=== PATIENT | male | born 1955 | race Asian ===

== ENCOUNTER 2023-03-01 07:19 | Inpatient (IN) | payer SELFPAY ==
[~2023-03-01] VITALS: Ht 162.6 cm; Wt 78.0 kg
[2023-03-01] VITALS (8 sets, daily range): BP systolic 101–123; BP diastolic 68–74; PULSE 82–110; RESP 22–40; O2SAT 92–99
[2023-03-01] MEDS: Insulin Reg/NS 100units/100mL 100 ML IV SCH (00:40)
[2023-03-01] MEDS ORDERED: albuterol 2.5 MG/3 ML nebule CONTNEB PRN (07:30)
[2023-03-01] MEDS ORDERED: ipratropium 0.5 MG/2.5ML nebule IH ONE ×2 (07:30→11:05)
[2023-03-01] MEDS ORDERED: azithromycin/NS 500mg/250ml 250 ML IV ONE (07:30)
[2023-03-01] MEDS ORDERED: normal saline 1000ML IV soln IVB ONE ×2 (07:30→15:45)
[2023-03-01] MEDS ORDERED: CefTRIAXone 2gm/D5W 50ml BAG 50 ML IV ONE (07:30)
[2023-03-01] MEDS ORDERED: methylPREDNISolone sod succ 125mg/2ml vial IV ONE (07:30)
[2023-03-01 07:56] LABS: BASOPHILS % (AUTO) 0.5 % (0-1); EOSINOPHILS # (AUTO) 0.1 X10'3 (0-0.9); EOSINOPHILS % (AUTO) 0.7 % (0-6); HEMATOCRIT 37.6 % (42.0-52.0); HEMOGLOBIN 12.7 g/dl (14.0-17.9); LYMPHOCYTES # (AUTO) 1.1 X10'3 (1.1-4.8); LYMPHOCYTES % (AUTO) 12.1 % (21-51); MEAN CORPUSCULAR HEMOGLOBIN 28.4 PG (27.0-31.0); MEAN CORPUSCULAR HGB CONC 33.7 g/dL (33.0-36.5); MEAN CORPUSCULAR VOLUME 84.5 FL (78-98); MEAN PLATELET VOLUME 7.9 FL (7.4-10.4); MONOCYTES # (AUTO) 0.7 X10'3 (0-0.9); MONOCYTES % (AUTO) 7.8 % (2-12); NEUTROPHILS % (AUTO) 78.9 % (42-75); PLATELET COUNT 246 X10'3 (140-440); RED BLOOD COUNT 4.45 X10'6 (4.70-6.10); RED CELL DISTRIBUTION WIDTH 14.5 % (11.5-14.5); WHITE BLOOD COUNT 8.9 X10'3 (4.5-11.0)
[2023-03-01 08:14] LABS: ABG BASE EXCESS -3.6 mmol/L (-2.0-2.0); ABG HCO3 18.4 mmol/L (22.0-26.0); ABG OXYGEN SATURATION 89.7 % (94-97); ABG PCO2 (T) 24.6 mmHg (35.0-48.0); ABG PH (T) 7.488 (7.340-7.440); ABG PO2 (T) 56.9 mmHg (75.0-100.0); ALLEN'S TEST POSITIVE; FCOHb 0.9 % (0.0-3.9); FHHb 10.2 % (0.0-5.0); FLOW 4 L/min; FMetHb 0.3 % (0.0-1.5); FO2Hb 88.6 % (94-97); MODE NASAL CANNULA; PATIENT TEMPERATURE 36.4; TOTAL HEMOGLOBIN 12.9 G/dl (14.0-17.9)
[2023-03-01 08:18] LABS: ALANINE AMINOTRANSFERASE 25 U/L (12-78); ALBUMIN 2.3 G/DL (3.4-5.0); ALBUMIN/GLOBULIN RATIO 0.4 (1.1-1.5); ALKALINE PHOSPHATASE 62 IU/L (46-116); ANION GAP 10 (8-16); ASPARTATE AMINO TRANSFERASE 54 U/L (10-37); BILIRUBIN,TOTAL 0.9 MG/DL (0.1-1.0); BLOOD UREA NITROGEN 25 MG/DL (7-18); BUN/CREATININE RATIO 23.4 (10.0-20.0); CALCIUM 8.7 MG/DL (8.5-10.1); CHLORIDE 100 MMOL/L (99-107); CREATININE 1.07 MG/DL (0.60-1.10); POTASSIUM 3.8 MMOL/L (3.5-5.1); SODIUM 133 MMOL/L (135-145); TOTAL CARBON DIOXIDE 22.8 MMOL/L (24-32); TOTAL PROTEIN 8.7 G/DL (6.4-8.2); eCRCL 63 ML/MIN; eGFR 69 ML/MIN
[2023-03-01 08:27] LABS: GLUCOSE 136 MG/DL (70-104); PRO BRAIN NATRIURETIC PEPTIDE 9439 PG/ML (0-125)
[2023-03-01 08:40] LABS: D-DIMER 0.86 MG/L FEU (0-0.50)
[2023-03-01] MEDS ORDERED: albuterol 2.5 MG/3 ML nebule NEB ONE (08:40)
[2023-03-01] MEDS ORDERED: aspirin 325mg tablet, delayed-release (Ecotrin) PO ONE (08:50)
[2023-03-01] MEDS ORDERED: nitroGLYCERIN 1gm ointment UD TP ONE (08:50)
[2023-03-01] MEDS ORDERED: heparin 10,000 units/1 ML INJ IV ONE ×2 (08:55→12:55)
[2023-03-01] MEDS ORDERED: heparin 10,000 units/1 ML INJ IV PRN ×2 (08:55→12:55)
[2023-03-01] MEDS ORDERED: heparin 25,000 UNIT/250ml bag 250 ML IV PRN ×2 (08:55→12:55)
[2023-03-01 10:05] LABS: INR 1.1 INR; PROTHROMBIN TIME 11.7 SECONDS (9.0-12.0)
[2023-03-01] MEDS ORDERED: albuterol 2.5 MG/3 ML nebule CONTNEB ONE (11:05)
[2023-03-01] MEDS ORDERED: NORepinephrine 8mg/ 250ml NS 250 ML IV PRN (11:10)
[2023-03-01] MEDS ORDERED: succinylcholine 20mg/ml inj IV ONE (12:13)
[2023-03-01] MEDS ORDERED: fentaNYL/PF 50MCG/1 ML 2ML syringe ONE (12:21)
[2023-03-01] MEDS ORDERED: fentaNYL/PF 50MCG/1 ML 2ML syringe IV ONE ×2 (12:25→12:50)
[2023-03-01] MEDS ORDERED: etomidate 2mg/ml inj. IV ONE (12:25)
[2023-03-01] MEDS ORDERED: FENTANYL-0.9 % NACL/PF 100 ML IV PRN ×2 (12:30→12:55)
[2023-03-01] MEDS ORDERED: NO HOME MEDS (12:41)
[2023-03-01 12:50] LABS: BILIRUBIN,URINE NEGATIVE (Neg); CLARITY,URINE SLIGHTLY CLOUDY (Clear); COLOR,URINE YELLOW (Yellow); GLUCOSE, URINE NEGATIVE (Neg); KETONES,URINE TRACE mg/dl (Neg); LEUKOCYTE ESTERASE ,URINE NEGATIVE (Neg); NITRITES, URINE NEGATIVE (Neg); OCCULT BLOOD,URINE NEGATIVE (Neg); PROTEIN,URINE 100 mg/dl (Neg); UROBILINOGEN,URINE >=8.0 E.U/dL (0.2-1.0)
[2023-03-01] MEDS ORDERED: furosemide 40mg/4ml inj IV ONE (12:50)
[2023-03-01 12:52] LABS: UA COLLECTION TYPE FOLEY CATH
[2023-03-01] MEDS ORDERED: LIDOcaine 2% 10ml TOPICAL JELLY (Urojet) TP ONE (12:55)
[2023-03-01] MEDS ORDERED: potassium Cl 20 mEq SR tablet PO PRN ×2 (12:55)
[2023-03-01] MEDS ORDERED: magnesium 4gm in 100ml NS 100 ML IV PRN (12:55)
[2023-03-01] MEDS ORDERED: potassium Cl 40MEQ/1/2NS 520ml 520 ML IV PRN (12:55)
[2023-03-01] MEDS ORDERED: magnesium hydroxide 30ml (MOM) UD suspension PO PRN (12:55)
[2023-03-01] MEDS ORDERED: ondansetron/PF 4mg/2ml inj IV PRN (12:55)
[2023-03-01] MEDS ORDERED: magnesium 2GM in 50ml NS 50 ML IV PRN (12:55)
[2023-03-01] MEDS ORDERED: LidoCAINE 2% Topical Jelly 11mL syringe TOP ONE (12:55)
[2023-03-01] MEDS ORDERED: acetaminophen 325mg tablet PO PRN (12:55)
[2023-03-01] MEDS ORDERED: magnesium Cl slow-release 64mg tablet PO PRN (12:55)
[2023-03-01] MEDS ORDERED: mag hydrox/Alum hydrox/simeth 30ml oral suspension PO PRN (12:55)
[2023-03-01] MEDS ORDERED: sodium bicarbonate (8.4%) 1 mEq/ml syringe ONE (13:00)
[2023-03-01] MEDS ORDERED: mannitol 12.5gm/50mL VIAL IV ONE (13:00)
[2023-03-01] MEDS ORDERED: methylPREDNISolone sod succ 1000mg vial ONE (13:00)
[2023-03-01] MEDS ORDERED: NORepinephrine bitart. inj. IV ONE (13:00)
[2023-03-01] MEDS ORDERED: aminocaproic acid 250 MG/1 ML inj. ONE (13:00)
[2023-03-01] MEDS ORDERED: albumin (human) 25% 100 ML IV solution IV ONE (13:00)
[2023-03-01] MEDS ORDERED: heparin 10,000 units/1 ML INJ ONE (13:00)
[2023-03-01 13:01] LABS: MUCUS STRANDS MODERATE /LPF (Neg)
[2023-03-01] MEDS ORDERED: potassium Cl 20 mEq SR tablet NG STA (13:03)
[2023-03-01] MEDS ORDERED: DOBUTamine-DoBUTrex 500mg/D5W 250 ML IV SCH (13:05)
[2023-03-01] MEDS ORDERED: magnesium 2GM in 50ml NS 50 ML IV ONE (13:05)
[2023-03-01 13:09] LABS: RENAL CELLS, URINE MANY /HPF
[2023-03-01 13:10] LABS: WBC,URINE 0-4 /HPF (0-4)
[2023-03-01 13:11] LABS: BACTERIA,URINE FEW /HPF (Neg)
[2023-03-01] MEDS: DOBUTamine-DoBUTrex 500mg/D5W 250 ML IV SCH (13:19)
[2023-03-01 13:21] LABS: SQUAMOUS EPITHELIAL CELL,UR FEW /LPF (FEW)
[2023-03-01 13:23] LABS: HYALINE CASTS 0-3 /LPF (NEGATIVE)
[2023-03-01 13:31] LABS: AMORPHOUS URATES 1+
[2023-03-01 13:33] LABS: TRANSITIONAL EPI CELLS,URINE FEW /HPF
[2023-03-01 13:34] LABS: COARSE GRANULAR CAST 0-3 /LPF (NEGATIVE)
[2023-03-01 13:54] LABS: BASOPHILS % (AUTO) 0.4 % (0-1); EOSINOPHILS % (AUTO) 0.1 % (0-6); HEMATOCRIT 34.5 % (42.0-52.0); HEMOGLOBIN 11.7 g/dl (14.0-17.9); LYMPHOCYTES # (AUTO) 0.7 X10'3 (1.1-4.8); LYMPHOCYTES % (AUTO) 9.5 % (21-51); MEAN CORPUSCULAR HEMOGLOBIN 28.6 PG (27.0-31.0); MEAN CORPUSCULAR HGB CONC 33.8 g/dL (33.0-36.5); MEAN CORPUSCULAR VOLUME 84.8 FL (78-98); MEAN PLATELET VOLUME 7.5 FL (7.4-10.4); MONOCYTES # (AUTO) 0.2 X10'3 (0-0.9); MONOCYTES % (AUTO) 2.3 % (2-12); NEUTROPHILS # (AUTO) 6.7 X10'3 (1.8-7.7); NEUTROPHILS % (AUTO) 87.7 % (42-75); PLATELET COUNT 261 X10'3 (140-440); RED BLOOD COUNT 4.07 X10'6 (4.70-6.10); RED CELL DISTRIBUTION WIDTH 14.7 % (11.5-14.5); WHITE BLOOD COUNT 7.6 X10'3 (4.5-11.0)
[2023-03-01] MEDS ORDERED: furosemide 20 MG/2 ML vial IV SCH (14:00)
[2023-03-01 14:01] LABS: ABG BASE EXCESS -8.7 mmol/L (-2.0-2.0); ABG HCO3 17.4 mmol/L (22.0-26.0); ABG OXYGEN SATURATION 94.7 % (94-97); ABG PCO2 (T) 38.6 mmHg (35.0-48.0); ABG PH (T) 7.273 (7.340-7.440); ABG PO2 (T) 91.6 mmHg (75.0-100.0); ALLEN'S TEST POSITIVE; FCOHb 0.2 % (0.0-3.9); FHHb 5.3 % (0.0-5.0); FMetHb 0.4 % (0.0-1.5); FO2Hb 94.1 % (94-97); MODE VENT - AC; PEEP 5 cm H2O; RESPIRATORY RATE 20 b/min; TIDAL VOLUME 450 mL; TOTAL HEMOGLOBIN 12.9 G/dl (14.0-17.9)
[2023-03-01] MEDS ORDERED: LIDOcaine 1% (10mg/ml) 2ml vial ONE (14:40)
[2023-03-01] MEDS ORDERED: iohexol 350 MG/ML 50ML vial IV ONE (14:41)
[2023-03-01] MEDS ORDERED: iohexol 350MG/ML 100ml bottle IV ONE ×2 (14:41)
[2023-03-01] MEDS ORDERED: midazolam 1 mg/ML 2ml injection ONE ×3 (14:41→17:53)
[2023-03-01] MEDS ORDERED: heparin 1,000unit/ml 10ml vial 10 ML ONE (14:42)
[2023-03-01] MEDS ORDERED: verapamil 2.5 mg/ml inj IV ONE (14:42)
[2023-03-01] MEDS ORDERED: nitroGLYCERIN 500mcg/5mL D5W 5 ML IV ONE (14:42)
[2023-03-01 15:32] LABS: PROTHROMBIN TIME 10.9 SECONDS (9.0-12.0)
[2023-03-01] MEDS ORDERED: LIDOcaine 1% 30ml preserv. free vial ONE (16:27)
[2023-03-01] MEDS ORDERED: heparin 1,000 UNITS/NS 500ml 500 ML ONE (16:41)
[2023-03-01] MEDS ORDERED: epiNEPHrine 1 mg/ml inj ONE (17:20)
[2023-03-01] MEDS ORDERED: ceFAZolin 1000mg inj ONE (17:20)
[2023-03-01] MEDS ORDERED: BUPIVAcaine 0.5% inj/PF 30 ML ONE (17:21)
[2023-03-01] MEDS ORDERED: BUPIVAcaine 2.5mg/ml inj 50ml vial (contains preservative) ONE (17:21)
[2023-03-01] MEDS ORDERED: clindamycin 600mg/D5W 50ml 50 ML IV ONE (17:35)
[2023-03-01] MEDS ORDERED: MESSAGE TO PHARMACY IJ ONE (17:35)
[2023-03-01] MEDS ORDERED: MESSAGE TO NURSING PO ONE ×5 (17:35→17:54)
[2023-03-01] MEDS ORDERED: MIDAZolam 1 MG/ML 5ML VIAL ONE (18:00)
[2023-03-01] MEDS ORDERED: SUfentanil 50mcg/ml 1ml amp IV ONE (18:00)
[2023-03-01] MEDS ORDERED: rocuronium 10mg/ml inj IV ONE (18:08)
[2023-03-01] MEDS ORDERED: sevoflurane 250ml liquid IH ONE (18:08)
[2023-03-01] MEDS ORDERED: NORepinephrine 8 MG in NS 250 ML BAG (32 mcg/ml) IV ONE (18:08)
[2023-03-01] MEDS ORDERED: DOBUTamine/D5W 500mg/250ml premix IV ONE (18:08)
[2023-03-01] MEDS ORDERED: protamine sulf. 10mg/ml inj. IV ONE (18:08)
[2023-03-01 18:13] LABS: ABG HCO3 17.1 mmol/L (22.0-26.0); ABG OXYGEN SATURATION 99.1 % (94-97); ABG PCO2 37.7 mmHg (35.0-48.0); ABG PH 7.275 (7.340-7.440); ABG PO2 363.5 mmHg (75.0-100.0); CL (ABG) 107 mmol/L (99-107); FCOHb 0.3 % (0.0-3.9); FHHb 0.9 % (0.0-5.0); FMetHb 0.3 % (0.0-1.5); FO2Hb 98.5 % (94-97); GLUCOSE (ABG) 223 mg/dl (70-104); IONIZED CA (ABG) 1.09 mmol/L (1.10-1.30); TOTAL HEMOGLOBIN 12.6 G/dl (14.0-17.9)
[2023-03-01] MEDS ORDERED: papaverine 30 mg/ml 2ml inj. ICAR ONE (18:30)
[2023-03-01] MEDS ORDERED: BUPIVACAINE liposomal/PF 13.3 MG/ML vial IM ONE ×2 (18:30→19:16)
[2023-03-01] MEDS ORDERED: epiNEPHrine 1 mg/ml inj SQ ONE (18:30)
[2023-03-01] MEDS ORDERED: BUPIVAcaine 0.25% w/Epi /PF 30ml vial IJ ONE (18:30)
[2023-03-01 18:49] LABS: ABG BASE EXCESS -2.3 mmol/L (-2.0-2.0); ABG HCO3 23.3 mmol/L (22.0-26.0); ABG PH 7.351 (7.340-7.440); ABG PO2 250.1 mmHg (75.0-100.0); CL (ABG) 106 mmol/L (99-107); FCOHb 0.3 % (0.0-3.9); FMetHb 0.3 % (0.0-1.5); FO2Hb 98.4 % (94-97); GLUCOSE (ABG) 214 mg/dl (70-104); IONIZED CA (ABG) 1.01 mmol/L (1.10-1.30); K (ABG) 3.6 mmol/L (3.5-5.1); TOTAL HEMOGLOBIN 11.7 G/dl (14.0-17.9)
[2023-03-01] MEDS ORDERED: sodium bicarbonate (8.4%) inj. 1 MEQ/ML ML ONE ×3 (18:57→18:58)
[2023-03-01] MEDS ORDERED: clindamycin-Cleocin 900mg/D5W 50 ML IV ONE (19:00)
[2023-03-01 19:04] LABS: HEMOGLOBIN A1C 6.7 % (4.5-6.2)
[2023-03-01 19:58] LABS: ABG BASE EXCESS -4.9 mmol/L (-2.0-2.0); ABG HCO3 20.8 mmol/L (22.0-26.0); ABG PCO2 40.9 mmHg (35.0-48.0); ABG PH 7.324 (7.340-7.440); ABG PO2 65.5 mmHg (75.0-100.0); CL (ABG) 106 mmol/L (99-107); FCOHb 0.3 % (0.0-3.9); FHHb 10.9 % (0.0-5.0); FMetHb 0.3 % (0.0-1.5); FO2Hb 88.5 % (94-97); GLUCOSE (ABG) 220 mg/dl (70-104); K (ABG) 3.6 mmol/L (3.5-5.1); TOTAL HEMOGLOBIN 11.7 G/dl (14.0-17.9)
[2023-03-01] MEDS ORDERED: docusate sod 100mg capsule PO SCH (20:00)
[2023-03-01] MEDS ORDERED: mupirocin 2% nasal ointment 1gm UD NS SCH (20:00)
[2023-03-01] MEDS ORDERED: K and/or MAG REPLACEMENT MC SCH (20:00)
[2023-03-01 20:23] LABS: ABG BASE EXCESS VENOUS -1.3 mmol/L (-2.0 - 2.0); ABG OXYGEN SATURATION VENOUS 82.3 % (75 - 99 %); ABG PCO2 VENOUS 36.5 mmHg (41.0-54.0); ABG PH (VENOUS) 7.417 (7.310-7.450); ABG PO2 VENOUS 46.8 mmHg (25.0-35.0); CL (ABG) 103 mmol/L (99-107); FCOHb VENOUS 0.3 %; FHHb VENOUS 17.6 %; FMetHb VENOUS 0.3 % (0.0 - 0.5); FO2Hb VENOUS 81.8 %; GLUCOSE (ABG) 180 mg/dl (70-104); IONIZED CA (ABG) 0.86 mmol/L (1.10-1.30); K (ABG) 3.6 mmol/L (3.5-5.1)
[2023-03-01 20:34] LABS: ABG BASE EXCESS 0.2 mmol/L (-2.0-2.0); ABG HCO3 24.5 mmol/L (22.0-26.0); ABG OXYGEN SATURATION 99.2 % (94-97); ABG PCO2 37.8 mmHg (35.0-48.0); ABG PH 7.429 (7.340-7.440); CL (ABG) 105 mmol/L (99-107); FCOHb 0.3 % (0.0-3.9); FHHb 0.8 % (0.0-5.0); FMetHb 0.3 % (0.0-1.5); FO2Hb 98.6 % (94-97); GLUCOSE (ABG) 191 mg/dl (70-104); IONIZED CA (ABG) 0.88 mmol/L (1.10-1.30); TOTAL HEMOGLOBIN 8.3 G/dl (14.0-17.9)
[2023-03-01 21:03] LABS: ABG BASE EXCESS 0.1 mmol/L (-2.0-2.0); ABG OXYGEN SATURATION 99.1 % (94-97); ABG PH 7.393 (7.340-7.440); ABG PO2 383.2 mmHg (75.0-100.0); CL (ABG) 107 mmol/L (99-107); FCOHb 0.3 % (0.0-3.9); FHHb 0.9 % (0.0-5.0); FMetHb 0.3 % (0.0-1.5); FO2Hb 98.5 % (94-97); GLUCOSE (ABG) 195 mg/dl (70-104); IONIZED CA (ABG) 0.91 mmol/L (1.10-1.30); TOTAL HEMOGLOBIN 8.7 G/dl (14.0-17.9)
[2023-03-01 21:33] LABS: ABG BASE EXCESS -2.2 mmol/L (-2.0-2.0); ABG HCO3 22.7 mmol/L (22.0-26.0); ABG OXYGEN SATURATION 99.1 % (94-97); ABG PCO2 39.4 mmHg (35.0-48.0); ABG PH 7.378 (7.340-7.440); ABG PO2 368.1 mmHg (75.0-100.0); CL (ABG) 106 mmol/L (99-107); FCOHb 0.3 % (0.0-3.9); FHHb 0.9 % (0.0-5.0); FMetHb 0.3 % (0.0-1.5); FO2Hb 98.5 % (94-97); GLUCOSE (ABG) 180 mg/dl (70-104); IONIZED CA (ABG) 0.95 mmol/L (1.10-1.30); TOTAL HEMOGLOBIN 8.9 G/dl (14.0-17.9)
[2023-03-01 22:03] LABS: ABG BASE EXCESS -1.4 mmol/L (-2.0-2.0); ABG HCO3 23.7 mmol/L (22.0-26.0); ABG OXYGEN SATURATION 99.1 % (94-97); ABG PCO2 41.4 mmHg (35.0-48.0); ABG PH 7.375 (7.340-7.440); ABG PO2 390.1 mmHg (75.0-100.0); CL (ABG) 107 mmol/L (99-107); FCOHb 0.2 % (0.0-3.9); FHHb 0.9 % (0.0-5.0); FMetHb 0.3 % (0.0-1.5); FO2Hb 98.6 % (94-97); GLUCOSE (ABG) 179 mg/dl (70-104); IONIZED CA (ABG) 0.95 mmol/L (1.10-1.30); K (ABG) 3.8 mmol/L (3.5-5.1); TOTAL HEMOGLOBIN 9.2 G/dl (14.0-17.9)
[2023-03-01 22:32] LABS: ABG BASE EXCESS -2.8 mmol/L (-2.0-2.0); ABG HCO3 22.2 mmol/L (22.0-26.0); ABG PCO2 39.2 mmHg (35.0-48.0); ABG PO2 348.5 mmHg (75.0-100.0); CL (ABG) 108 mmol/L (99-107); FCOHb 0.3 % (0.0-3.9); FMetHb 0.3 % (0.0-1.5); FO2Hb 98.4 % (94-97); GLUCOSE (ABG) 167 mg/dl (70-104); IONIZED CA (ABG) 0.98 mmol/L (1.10-1.30); K (ABG) 3.8 mmol/L (3.5-5.1); TOTAL HEMOGLOBIN 9.4 G/dl (14.0-17.9)
[2023-03-01 22:51] LABS: ABG BASE EXCESS 2.6 mmol/L (-2.0-2.0); ABG HCO3 27.9 mmol/L (22.0-26.0); ABG PCO2 47.2 mmHg (35.0-48.0); CL (ABG) 107 mmol/L (99-107); FCOHb 0.3 % (0.0-3.9); FMetHb 0.3 % (0.0-1.5); FO2Hb 98.4 % (94-97); GLUCOSE (ABG) 161 mg/dl (70-104); IONIZED CA (ABG) 1.44 mmol/L (1.10-1.30); K (ABG) 3.7 mmol/L (3.5-5.1); TOTAL HEMOGLOBIN 8.8 G/dl (14.0-17.9)
[2023-03-01 23:22] LABS: ABG BASE EXCESS 1.8 mmol/L (-2.0-2.0); ABG HCO3 27.1 mmol/L (22.0-26.0); ABG OXYGEN SATURATION 99.1 % (94-97); ABG PCO2 45.9 mmHg (35.0-48.0); ABG PH 7.389 (7.340-7.440); ABG PO2 373.4 mmHg (75.0-100.0); CL (ABG) 108 mmol/L (99-107); FCOHb 0.3 % (0.0-3.9); FHHb 0.9 % (0.0-5.0); FMetHb 0.3 % (0.0-1.5); FO2Hb 98.5 % (94-97); GLUCOSE (ABG) 150 mg/dl (70-104); IONIZED CA (ABG) 1.14 mmol/L (1.10-1.30); K (ABG) 3.9 mmol/L (3.5-5.1)
[2023-03-01 23:37] LABS: ABG BASE EXCESS -0.9 mmol/L (-2.0-2.0); ABG HCO3 24.5 mmol/L (22.0-26.0); ABG OXYGEN SATURATION 88.8 % (94-97); ABG PCO2 43.7 mmHg (35.0-48.0); ABG PH 7.366 (7.340-7.440); ABG PO2 62.8 mmHg (75.0-100.0); CL (ABG) 108 mmol/L (99-107); FCOHb 0.3 % (0.0-3.9); FHHb 11.1 % (0.0-5.0); FMetHb 0.3 % (0.0-1.5); FO2Hb 88.3 % (94-97); GLUCOSE (ABG) 138 mg/dl (70-104); IONIZED CA (ABG) 1.11 mmol/L (1.10-1.30); K (ABG) 3.6 mmol/L (3.5-5.1); TOTAL HEMOGLOBIN 9.4 G/dl (14.0-17.9)
[2023-03-01 23:39] LABS: ACTIVATED CLOTTING TIME 137 SEC (101-148)
[2023-03-02] VITALS (48 sets, daily range): BP systolic 60–159; BP diastolic 30–69; PULSE 92–108; RESP 16–25; TEMP 98.6–98.8; O2SAT 94–99
[2023-03-02 00:04] LABS: ABG BASE EXCESS -0.3 mmol/L (-2.0-2.0); ABG HCO3 24.9 mmol/L (22.0-26.0); ABG OXYGEN SATURATION 98.7 % (94-97); ABG PCO2 43.2 mmHg (35.0-48.0); ABG PH 7.379 (7.340-7.440); ABG PO2 261.8 mmHg (75.0-100.0); CL (ABG) 110 mmol/L (99-107); FCOHb 0.3 % (0.0-3.9); FHHb 1.3 % (0.0-5.0); FMetHb 0.1 % (0.0-1.5); FO2Hb 98.3 % (94-97); GLUCOSE (ABG) 125 mg/dl (70-104); IONIZED CA (ABG) 1.19 mmol/L (1.10-1.30); K (ABG) 3.4 mmol/L (3.5-5.1); TOTAL HEMOGLOBIN 8.5 G/dl (14.0-17.9)
[2023-03-02] MEDS ORDERED: potassium Cl 20 mEq SR tablet PO PRN (00:30)
[2023-03-02] MEDS ORDERED: potassium Cl 40MEQ/270ML bag 250 ML IV PRN (00:30)
[2023-03-02] MEDS ORDERED: Insulin Reg/NS 100units/100mL 100 ML IV SCH (00:30)
[2023-03-02] MEDS ORDERED: normal saline 250ml IV soln 250 ML IV PRN (00:30)
[2023-03-02] MEDS ORDERED: HYDROcodone/acetaminophen 10/325mg tab PO PRN (00:30)
[2023-03-02] MEDS ORDERED: sodium phosphate inj. 15 MMOL in dextrose 5%-water 250 ML IV PRN (00:30)
[2023-03-02] MEDS ORDERED: niCARDipine-NS 40mg/200ml IVPB 200 ML IV PRN (00:30)
[2023-03-02] MEDS ORDERED: mineral oil 133ml enema RC PRN (00:30)
[2023-03-02] MEDS ORDERED: dextrose 50%-water 50ml dispensing syringe IV PRN (00:30)
[2023-03-02] MEDS ORDERED: sodium chloride 0.45% 1,000 ML IV SCH (00:30)
[2023-03-02] MEDS ORDERED: insulin glargine (Lantus) pen - multi-dose SQ PRN (00:30)
[2023-03-02] MEDS ORDERED: nitroGLYCERIN-Tridil 50MG/D5W 250 ML IV PRN (00:30)
[2023-03-02] MEDS ORDERED: sodium phosphate inj. 30 MMOL in dextrose 5%-water 250 ML IV PRN (00:30)
[2023-03-02] MEDS ORDERED: potassium Cl 40MEQ/1/2NS 520ml 520 ML IV PRN (00:30)
[2023-03-02] MEDS ORDERED: magnesium hydroxide 30ml (MOM) UD suspension PO PRN (00:30)
[2023-03-02] MEDS ORDERED: metoclopramide 5 mg/ml inj IV PRN (00:30)
[2023-03-02] MEDS ORDERED: potassium CL 10mEq/100ml bag 100 ML IV PRN (00:30)
[2023-03-02] MEDS ORDERED: magnesium 4gm in 100ml NS 100 ML IV PRN (00:30)
[2023-03-02] MEDS ORDERED: acetaminophen 325mg tablet PO PRN ×2 (00:30)
[2023-03-02] MEDS ORDERED: Neutra Phos packet PO PRN (00:30)
[2023-03-02] MEDS ORDERED: ondansetron/PF 4mg/2ml inj IV PRN (00:30)
[2023-03-02] MEDS ORDERED: bisacodyl 10mg suppository rectal RC PRN (00:30)
[2023-03-02] MEDS ORDERED: albumin (Human) 5% 250ml 250 ML IV ONE (00:33)
[2023-03-02] MEDS ORDERED: nitroGLYCERIN-Tridil 50MG/D5W 250 ML IV ONE (00:56)
[2023-03-02 00:59] LABS: ABG BASE EXCESS 1.3 mmol/L (-2.0-2.0); ABG HCO3 27.6 mmol/L (22.0-26.0); ABG OXYGEN SATURATION 97.5 % (94-97); ABG PCO2 (T) 50.8 mmHg (35.0-48.0); ABG PH (T) 7.349 (7.340-7.440); ABG PO2 (T) 112.8 mmHg (75.0-100.0); FCOHb 0.3 % (0.0-3.9); FHHb 2.5 % (0.0-5.0); FO2Hb 97.2 % (94-97); MODE SIMV; PATIENT TEMPERATURE 36.3; PEEP 5 cm H2O; RESPIRATORY RATE 12 b/min; TIDAL VOLUME 450 mL; TOTAL HEMOGLOBIN 9.2 G/dl (14.0-17.9)
[2023-03-02] MEDS ORDERED: propofol 1000mg/100ml bottle 100 ML IV ONE (01:10)
[2023-03-02 01:17] LABS: BASOPHILS # (AUTO) 0.1 X10'3 (0-0.2); BASOPHILS % (AUTO) 0.9 % (0-1); EOSINOPHILS % (AUTO) 0 % (0-6); HEMATOCRIT 25.1 % (42.0-52.0); HEMOGLOBIN 8.6 g/dl (14.0-17.9); LYMPHOCYTES # (AUTO) 0.5 X10'3 (1.1-4.8); LYMPHOCYTES % (AUTO) 4.5 % (21-51); MEAN CORPUSCULAR HEMOGLOBIN 28.6 PG (27.0-31.0); MEAN CORPUSCULAR HGB CONC 34.1 g/dL (33.0-36.5); MEAN PLATELET VOLUME 7.4 FL (7.4-10.4); MONOCYTES # (AUTO) 0.5 X10'3 (0-0.9); MONOCYTES % (AUTO) 5.4 % (2-12); NEUTROPHILS % (AUTO) 89.2 % (42-75); PLATELET COUNT 125 X10'3 (140-440); RED BLOOD COUNT 2.99 X10'6 (4.70-6.10); RED CELL DISTRIBUTION WIDTH 14.2 % (11.5-14.5); WHITE BLOOD COUNT 10.1 X10'3 (4.5-11.0)
[2023-03-02 01:23] LABS: ALANINE AMINOTRANSFERASE 20 U/L (12-78); ALBUMIN/GLOBULIN RATIO 0.5 (1.1-1.5); ALKALINE PHOSPHATASE 36 IU/L (46-116); ANION GAP 8 (8-16); APTT 30 SECONDS (22-32); ASPARTATE AMINO TRANSFERASE 58 U/L (10-37); BILIRUBIN,TOTAL 0.8 MG/DL (0.1-1.0); BLOOD UREA NITROGEN 20 MG/DL (7-18); BUN/CREATININE RATIO 21.1 (10.0-20.0); CALCIUM 8.3 MG/DL (8.5-10.1); CHLORIDE 112 MMOL/L (99-107); CREATININE 0.95 MG/DL (0.60-1.10); FIBRINOGEN 305 MG/DL (177-424); GLUCOSE 108 MG/DL (70-104); INR 1.2 INR; MAGNESIUM 2.2 MG/DL (1.5-2.4); PHOSPHORUS 4.4 MG/DL (2.3-4.5); POTASSIUM 3.5 MMOL/L (3.5-5.1); PROTHROMBIN TIME 12.3 SECONDS (9.0-12.0); SODIUM 147 MMOL/L (135-145); TOTAL CARBON DIOXIDE 27.4 MMOL/L (24-32); TOTAL PROTEIN 5.8 G/DL (6.4-8.2); eCRCL 70 ML/MIN; eGFR 79 ML/MIN
[2023-03-02] MEDS ORDERED: ipratropium/albuterol 3ml nebule NEB SCH (01:30)
[2023-03-02] MEDS: potassium Cl 20mEq/100mL bag 100 ML IV PRN ×6 (02:28→22:46)
[2023-03-02] MEDS: clindamycin 600mg/D5W 50ml 50 ML IV SCH ×4 (02:41→21:14)
[2023-03-02] MEDS: propofol 1000mg/100ml bottle 100 ML IV SCH ×3 (03:00→21:12)
[2023-03-02] MEDS: DOBUTamine-DoBUTrex 500mg/D5W 250 ML IV SCH (03:47)
[2023-03-02 04:04] LABS: ABG HCO3 24.5 mmol/L (22.0-26.0); ABG OXYGEN SATURATION 98.6 % (94-97); ABG PCO2 (T) 37.3 mmHg (35.0-48.0); ABG PH (T) 7.431 (7.340-7.440); ABG PO2 (T) 148.3 mmHg (75.0-100.0); FCOHb 0.1 % (0.0-3.9); FHHb 1.4 % (0.0-5.0); FMetHb 0.3 % (0.0-1.5); FO2Hb 98.2 % (94-97); MODE SMIV; PATIENT TEMPERATURE 36.1; PEEP 5 cm H2O; RESPIRATORY RATE 18 b/min; TIDAL VOLUME 500 mL; TOTAL HEMOGLOBIN 8.7 G/dl (14.0-17.9)
[2023-03-02] MEDS ORDERED: FENTANYL-0.9 % NACL/PF 100 ML IV PRN (05:00)
[2023-03-02] MEDS ORDERED: azithromycin/NS 500mg/250ml 250 ML IV SCH (08:00)
[2023-03-02] MEDS ORDERED: vancomycin/NS 1 GM ADD-VANTAGE 250 ML IV SCH (08:00)
[2023-03-02] MEDS ORDERED: gabapentin 300mg capsule PO SCH (08:00)
[2023-03-02] MEDS ORDERED: pantoprazole 40MG/NS 100ML BAG 100 ML IV SCH (08:00)
[2023-03-02] MEDS ORDERED: CefTRIAXone/D5W-Rocephin 1gm 50 ML IV SCH (08:00)
[2023-03-02 08:01] LABS: ABG BASE EXCESS -1.6 mmol/L (-2.0-2.0); ABG OXYGEN SATURATION 98.2 % (94-97); ABG PCO2 (T) 36.8 mmHg (35.0-48.0); ABG PH (T) 7.411 (7.340-7.440); ABG PO2 (T) 135.4 mmHg (75.0-100.0); FHHb 1.8 % (0.0-5.0); FMetHb 0.3 % (0.0-1.5); FO2Hb 97.9 % (94-97); MODE VENT - AC; PATIENT TEMPERATURE 36.2; RESPIRATORY RATE 18 b/min; TIDAL VOLUME 400 mL; TOTAL HEMOGLOBIN 8.5 G/dl (14.0-17.9)
[2023-03-02] MEDS ORDERED: furosemide 20 MG/2 ML vial IV ONE (08:45)
[2023-03-02] MEDS ORDERED: albumin (human) 25% 100 ML IV solution IV ONE ×4 (08:45→21:00)
[2023-03-02] MEDS ORDERED: CALCIUM GLUC 1gm/50ml NACL,iso 50 ML IV ONE ×2 (08:45→22:15)
[2023-03-02] MEDS: mupirocin 2% ointment 22GM NS SCH ×2 (09:03→21:13)
[2023-03-02] MEDS: NORepinephrine 8mg/ 250ml NS 250 ML IV SCH ×2 (09:04→17:35)
[2023-03-02] MEDS: aspirin 81mg tab.chew PO SCH (09:04)
[2023-03-02] MEDS: sennosides/docusate sodium tablet PO SCH ×2 (09:04→21:13)
[2023-03-02 09:18] LABS: ALBUMIN 2.1 G/DL (3.4-5.0); ANION GAP 9 (8-16); BLOOD UREA NITROGEN 19 MG/DL (7-18); BUN/CREATININE RATIO 20.7 (10.0-20.0); CALCIUM 7.9 MG/DL (8.5-10.1); CHLORIDE 114 MMOL/L (99-107); CREATININE 0.92 MG/DL (0.60-1.10); GLUCOSE 160 MG/DL (70-104); MAGNESIUM 2.1 MG/DL (1.5-2.4); PHOSPHORUS 3.6 MG/DL (2.3-4.5); POTASSIUM 4.3 MMOL/L (3.5-5.1); SODIUM 147 MMOL/L (135-145); TOTAL CARBON DIOXIDE 24.3 MMOL/L (24-32); eCRCL 65 ML/MIN; eGFR 82 ML/MIN
[2023-03-02 09:19] LABS: BASOPHILS % (AUTO) 0.1 % (0-1); EOSINOPHILS % (AUTO) 0 % (0-6); HEMATOCRIT 23.8 % (42.0-52.0); HEMOGLOBIN 7.9 g/dl (14.0-17.9); LYMPHOCYTES # (AUTO) 0.7 X10'3 (1.1-4.8); LYMPHOCYTES % (AUTO) 5.6 % (21-51); MEAN CORPUSCULAR HEMOGLOBIN 28.1 PG (27.0-31.0); MEAN CORPUSCULAR HGB CONC 33.1 g/dL (33.0-36.5); MEAN CORPUSCULAR VOLUME 85.1 FL (78-98); MONOCYTES # (AUTO) 0.7 X10'3 (0-0.9); MONOCYTES % (AUTO) 5.6 % (2-12); NEUTROPHILS % (AUTO) 88.7 % (42-75); PLATELET COUNT 127 X10'3 (140-440); RED BLOOD COUNT 2.79 X10'6 (4.70-6.10); RED CELL DISTRIBUTION WIDTH 14.1 % (11.5-14.5); WHITE BLOOD COUNT 12.4 X10'3 (4.5-11.0)
[2023-03-02] MEDS: furosemide inj 100 MG in normal saline 100ml IV soln 90 ML IV SCH ×2 (09:47→19:15)
[2023-03-02] MEDS: ipratropium/albuterol 3ml nebule NEB SCH ×3 (10:06→23:40)
[2023-03-02] MEDS: magnesium 2GM in 50ml NS 50 ML IV PRN (10:23)
[2023-03-02 11:05] LABS: ALANINE AMINOTRANSFERASE 21 U/L (12-78); ALBUMIN/GLOBULIN RATIO 0.6 (1.1-1.5); ALKALINE PHOSPHATASE 34 IU/L (46-116); ASPARTATE AMINO TRANSFERASE 55 U/L (10-37); BILIRUBIN,TOTAL 0.7 MG/DL (0.1-1.0); TOTAL PROTEIN 5.8 G/DL (6.4-8.2)
[2023-03-02] MEDS ORDERED: nystatin 500,000 unit/5ML UD oral suspension PO SCH (13:00)
[2023-03-02] MEDS: gabapentin 300mg capsule PO SCH ×2 (13:29→21:13)
[2023-03-02] MEDS ORDERED: mineral oil/petrolatum ophthal oint EACHEYE SCH (14:00)
[2023-03-02 14:38] LABS: ABG BASE EXCESS 3.1 mmol/L (-2.0-2.0); ABG HCO3 27.6 mmol/L (22.0-26.0); ABG OXYGEN SATURATION 96.2 % (94-97); ABG PCO2 (T) 41.7 mmHg (35.0-48.0); ABG PH (T) 7.438 (7.340-7.440); ABG PO2 (T) 86.1 mmHg (75.0-100.0); FCOHb 0.6 % (0.0-3.9); FHHb 3.8 % (0.0-5.0); FMetHb 0.3 % (0.0-1.5); FO2Hb 95.3 % (94-97); MODE VENT - AC; PATIENT TEMPERATURE 36.8; RESPIRATORY RATE 18 b/min; TIDAL VOLUME 400 mL; TOTAL HEMOGLOBIN 8.1 G/dl (14.0-17.9)
[2023-03-02 15:06] LABS: BASOPHILS % (AUTO) 0.1 % (0-1); EOSINOPHILS % (AUTO) 0 % (0-6); HEMOGLOBIN 7.3 g/dl (14.0-17.9); LYMPHOCYTES # (AUTO) 0.7 X10'3 (1.1-4.8); LYMPHOCYTES % (AUTO) 5.6 % (21-51); MEAN CORPUSCULAR HEMOGLOBIN 28.2 PG (27.0-31.0); MEAN CORPUSCULAR HGB CONC 33.2 g/dL (33.0-36.5); MEAN CORPUSCULAR VOLUME 85.1 FL (78-98); MEAN PLATELET VOLUME 8.2 FL (7.4-10.4); MONOCYTES # (AUTO) 1.1 X10'3 (0-0.9); MONOCYTES % (AUTO) 8.5 % (2-12); NEUTROPHILS # (AUTO) 10.6 X10'3 (1.8-7.7); NEUTROPHILS % (AUTO) 85.8 % (42-75); PLATELET COUNT 133 X10'3 (140-440); RED BLOOD COUNT 2.59 X10'6 (4.70-6.10); RED CELL DISTRIBUTION WIDTH 14.2 % (11.5-14.5); WHITE BLOOD COUNT 12.4 X10'3 (4.5-11.0)
[2023-03-02 15:17] LABS: ALBUMIN 3.1 G/DL (3.4-5.0); ANION GAP 5 (8-16); BLOOD UREA NITROGEN 18 MG/DL (7-18); BUN/CREATININE RATIO 18.4 (10.0-20.0); CALCIUM 8.3 MG/DL (8.5-10.1); CHLORIDE 110 MMOL/L (99-107); CREATININE 0.98 MG/DL (0.60-1.10); GLUCOSE 142 MG/DL (70-104); MAGNESIUM 2.8 MG/DL (1.5-2.4); PHOSPHORUS 3.6 MG/DL (2.3-4.5); POTASSIUM 4.5 MMOL/L (3.5-5.1); SODIUM 144 MMOL/L (135-145); TOTAL CARBON DIOXIDE 28.6 MMOL/L (24-32); eCRCL 61 ML/MIN; eGFR 76 ML/MIN
[2023-03-02 16:37] LABS: ISTAT HGB ART 11.2 g/dl (14.0-17.9); ISTAT Hct ART 33 %PCV (42-52); ISTAT O2 SATURATION ARTERIAL 99 % (95-98); ISTAT SOURCE ART
[2023-03-02] MEDS ORDERED: albumin (human) 25% 100ml IV 100 ML IV ONE (18:39)
[2023-03-02] MEDS ORDERED: atorvastatin 10mg tablet PO SCH ×2 (21:00)
[2023-03-02 21:07] LABS: ABG BASE EXCESS 0.9 mmol/L (-2.0-2.0); ABG HCO3 24.9 mmol/L (22.0-26.0); ABG OXYGEN SATURATION 95.4 % (94-97); ABG PCO2 (T) 37.2 mmHg (35.0-48.0); ABG PH (T) 7.443 (7.340-7.440); ABG PO2 (T) 78.5 mmHg (75.0-100.0); FCOHb 0.4 % (0.0-3.9); FHHb 4.6 % (0.0-5.0); FMetHb 0.3 % (0.0-1.5); FO2Hb 94.7 % (94-97); MODE VENT - SIMV; PATIENT TEMPERATURE 36.9; PEEP 5 cm H2O; RESPIRATORY RATE 16 b/min; TIDAL VOLUME 500 mL; TOTAL HEMOGLOBIN 9.1 G/dl (14.0-17.9)
[2023-03-02] MEDS: morphine 4 MG/ML inj SYRINge IV PRN (21:13)
[2023-03-02 21:29] LABS: BASOPHILS % (AUTO) 0 % (0-1); EOSINOPHILS % (AUTO) 0 % (0-6); HEMATOCRIT 25.1 % (42.0-52.0); HEMOGLOBIN 8.3 g/dl (14.0-17.9); LYMPHOCYTES # (AUTO) 0.9 X10'3 (1.1-4.8); LYMPHOCYTES % (AUTO) 5.9 % (21-51); MEAN CORPUSCULAR HEMOGLOBIN 28.6 PG (27.0-31.0); MEAN CORPUSCULAR HGB CONC 33.2 g/dL (33.0-36.5); MONOCYTES # (AUTO) 1.3 X10'3 (0-0.9); MONOCYTES % (AUTO) 8.4 % (2-12); NEUTROPHILS # (AUTO) 13.1 X10'3 (1.8-7.7); NEUTROPHILS % (AUTO) 85.7 % (42-75); PLATELET COUNT 157 X10'3 (140-440); RED BLOOD COUNT 2.92 X10'6 (4.70-6.10); RED CELL DISTRIBUTION WIDTH 14.9 % (11.5-14.5); WHITE BLOOD COUNT 15.3 X10'3 (4.5-11.0)
[2023-03-02] MEDS: dexmedetomidin/NS 400mcg/100ml 100 ML IV SCH (21:40)
[2023-03-02 21:41] LABS: ALBUMIN 3.2 G/DL (3.4-5.0); ANION GAP 8 (8-16); BLOOD UREA NITROGEN 20 MG/DL (7-18); BUN/CREATININE RATIO 21.7 (10.0-20.0); CALCIUM 8.3 MG/DL (8.5-10.1); CHLORIDE 109 MMOL/L (99-107); CREATININE 0.92 MG/DL (0.60-1.10); GLUCOSE 132 MG/DL (70-104); MAGNESIUM 2.7 MG/DL (1.5-2.4); POTASSIUM 4.3 MMOL/L (3.5-5.1); SODIUM 144 MMOL/L (135-145); TOTAL CARBON DIOXIDE 26.8 MMOL/L (24-32); eCRCL 65 ML/MIN; eGFR 82 ML/MIN
[2023-03-02] MEDS: DOPamine 400mg/D5W 250ml 250 ML IV PRN (22:47)
[2023-03-03] VITALS (39 sets, daily range): BP systolic 89–123; BP diastolic 33–66; PULSE 101–114; RESP 16–35; O2SAT 92–98
[2023-03-03] MEDS: morphine 2 MG/ML inj. syringe IV PRN ×2 (02:49→05:34)
[2023-03-03] MEDS: clindamycin 600mg/D5W 50ml 50 ML IV SCH ×4 (02:50→20:28)
[2023-03-03 03:39] LABS: ABG BASE EXCESS 2.6 mmol/L (-2.0-2.0); ABG HCO3 27.1 mmol/L (22.0-26.0); ABG OXYGEN SATURATION 94.9 % (94-97); ABG PCO2 (T) 41.2 mmHg (35.0-48.0); ABG PH (T) 7.435 (7.340-7.440); ABG PO2 (T) 76.7 mmHg (75.0-100.0); FCOHb 1.2 % (0.0-3.9); FMetHb 0.3 % (0.0-1.5); FO2Hb 93.5 % (94-97); MODE VENT - SIMV; PATIENT TEMPERATURE 36.9; PEEP 5 cm H2O; RESPIRATORY RATE 16 b/min; TIDAL VOLUME 400 mL; TOTAL HEMOGLOBIN 9.4 G/dl (14.0-17.9)
[2023-03-03 03:43] LABS: BASOPHILS % (AUTO) 0.2 % (0-1); EOSINOPHILS % (AUTO) 0 % (0-6); HEMATOCRIT 23.9 % (42.0-52.0); LYMPHOCYTES # (AUTO) 0.7 X10'3 (1.1-4.8); LYMPHOCYTES % (AUTO) 5.9 % (21-51); MEAN CORPUSCULAR HEMOGLOBIN 28.7 PG (27.0-31.0); MEAN CORPUSCULAR HGB CONC 33.4 g/dL (33.0-36.5); MEAN CORPUSCULAR VOLUME 85.9 FL (78-98); MEAN PLATELET VOLUME 8.2 FL (7.4-10.4); MONOCYTES # (AUTO) 0.7 X10'3 (0-0.9); MONOCYTES % (AUTO) 6.2 % (2-12); NEUTROPHILS # (AUTO) 10.4 X10'3 (1.8-7.7); NEUTROPHILS % (AUTO) 87.7 % (42-75); PLATELET COUNT 131 X10'3 (140-440); RED BLOOD COUNT 2.78 X10'6 (4.70-6.10); RED CELL DISTRIBUTION WIDTH 14.7 % (11.5-14.5); WHITE BLOOD COUNT 11.9 X10'3 (4.5-11.0)
[2023-03-03 03:46] LABS: APTT 24 SECONDS (22-32); PROTHROMBIN TIME 10.5 SECONDS (9.0-12.0)
[2023-03-03 03:53] LABS: ALANINE AMINOTRANSFERASE 18 U/L (12-78); ALBUMIN 3.5 G/DL (3.4-5.0); ALBUMIN/GLOBULIN RATIO 1.1 (1.1-1.5); ALKALINE PHOSPHATASE 29 IU/L (46-116); ANION GAP 6 (8-16); ASPARTATE AMINO TRANSFERASE 38 U/L (10-37); BILIRUBIN,TOTAL 1.1 MG/DL (0.1-1.0); BLOOD UREA NITROGEN 19 MG/DL (7-18); BUN/CREATININE RATIO 22.6 (10.0-20.0); CALCIUM 8.6 MG/DL (8.5-10.1); CHLORIDE 109 MMOL/L (99-107); CHOL/HDL RATIO 4.5 (0.00-4.99); CHOLESTEROL 81 MG/DL (0-200); CREATININE 0.84 MG/DL (0.60-1.10); GLUCOSE 93 MG/DL (70-104); HDL CHOLESTEROL 18 MG/DL (35-60); LDL CHOLESTEROL 45 MG/DL (50-100); MAGNESIUM 2.6 MG/DL (1.5-2.4); PHOSPHORUS 3.8 MG/DL (2.3-4.5); POTASSIUM 3.9 MMOL/L (3.5-5.1); SODIUM 145 MMOL/L (135-145); TOTAL CARBON DIOXIDE 30.2 MMOL/L (24-32); TOTAL PROTEIN 6.8 G/DL (6.4-8.2); TRIGLYCERIDES 94 MG/DL (20-135); eCRCL 71 ML/MIN; eGFR > 90 ML/MIN
[2023-03-03] MEDS: Insulin Reg/NS 100units/100mL 100 ML IV SCH (04:20)
[2023-03-03] MEDS: potassium Cl 20mEq/100mL bag 100 ML IV PRN ×4 (04:26→22:05)
[2023-03-03] MEDS: furosemide inj 100 MG in normal saline 100ml IV soln 90 ML IV SCH ×2 (05:15→10:47)
[2023-03-03] MEDS: DOBUTamine-DoBUTrex 500mg/D5W 250 ML IV SCH (06:45)
[2023-03-03] MEDS: ipratropium/albuterol 3ml nebule NEB SCH ×3 (06:53→23:37)
[2023-03-03] MEDS: aspirin 81mg tab.chew PO SCH (07:46)
[2023-03-03] MEDS: sennosides/docusate sodium tablet PO SCH (07:46)
[2023-03-03] MEDS: gabapentin 300mg capsule PO SCH ×2 (07:46→13:19)
[2023-03-03] MEDS: HYDROcodone/acetaminophen 10/325mg tab PO PRN ×3 (07:47→18:47)
[2023-03-03] MEDS ORDERED: LIDOcaine 1% (10mg/ml) 2ml vial ONE (07:52)
[2023-03-03] MEDS ORDERED: clopidogrel 75mg tablet PO SCH (08:00)
[2023-03-03] MEDS ORDERED: mupirocin 2% nasal ointment 1gm UD NS SCH (08:13)
[2023-03-03] MEDS ORDERED: albumin (Human) 5% 250ml 250 ML IV ONE ×2 (08:25→13:50)
[2023-03-03] MEDS: normal saline 1000ml 1,000 ML IV SCH (08:28)
[2023-03-03] MEDS: propofol 1000mg/100ml bottle 100 ML IV SCH ×2 (09:07→20:29)
[2023-03-03] MEDS: dexmedetomidin/NS 400mcg/100ml 100 ML IV SCH ×3 (10:14→22:05)
[2023-03-03 10:17] LABS: BASOPHILS % (AUTO) 0.3 % (0-1); EOSINOPHILS % (AUTO) 0 % (0-6); HEMATOCRIT 24.7 % (42.0-52.0); HEMOGLOBIN 8.2 g/dl (14.0-17.9); LYMPHOCYTES # (AUTO) 0.9 X10'3 (1.1-4.8); LYMPHOCYTES % (AUTO) 7.5 % (21-51); MEAN CORPUSCULAR HEMOGLOBIN 28.8 PG (27.0-31.0); MEAN CORPUSCULAR HGB CONC 33.3 g/dL (33.0-36.5); MEAN CORPUSCULAR VOLUME 86.5 FL (78-98); MEAN PLATELET VOLUME 8.6 FL (7.4-10.4); MONOCYTES # (AUTO) 0.8 X10'3 (0-0.9); MONOCYTES % (AUTO) 6.7 % (2-12); NEUTROPHILS # (AUTO) 10.3 X10'3 (1.8-7.7); NEUTROPHILS % (AUTO) 85.5 % (42-75); PLATELET COUNT 183 X10'3 (140-440); RED BLOOD COUNT 2.86 X10'6 (4.70-6.10); RED CELL DISTRIBUTION WIDTH 14.8 % (11.5-14.5)
[2023-03-03 10:28] LABS: ALBUMIN 3.5 G/DL (3.4-5.0); ANION GAP 9 (8-16); BLOOD UREA NITROGEN 19 MG/DL (7-18); BUN/CREATININE RATIO 22.9 (10.0-20.0); CALCIUM 8.3 MG/DL (8.5-10.1); CHLORIDE 104 MMOL/L (99-107); CREATININE 0.83 MG/DL (0.60-1.10); GLUCOSE 165 MG/DL (70-104); MAGNESIUM 2.4 MG/DL (1.5-2.4); SODIUM 140 MMOL/L (135-145); TOTAL CARBON DIOXIDE 27.4 MMOL/L (24-32); eCRCL 72 ML/MIN; eGFR > 90 ML/MIN
[2023-03-03 10:29] LABS: PHOSPHORUS 2.9 MG/DL (2.3-4.5); POTASSIUM 4.5 MMOL/L (3.5-5.1)
[2023-03-03] MEDS: metoclopramide 5 mg/ml inj IV SCH ×2 (14:00→20:28)
[2023-03-03 14:39] LABS: BASOPHILS % (AUTO) 0.4 % (0-1); EOSINOPHILS % (AUTO) 0.2 % (0-6); HEMATOCRIT 24.6 % (42.0-52.0); HEMOGLOBIN 8.2 g/dl (14.0-17.9); LYMPHOCYTES # (AUTO) 0.8 X10'3 (1.1-4.8); LYMPHOCYTES % (AUTO) 8.6 % (21-51); MEAN CORPUSCULAR HEMOGLOBIN 28.9 PG (27.0-31.0); MEAN CORPUSCULAR HGB CONC 33.4 g/dL (33.0-36.5); MEAN CORPUSCULAR VOLUME 86.4 FL (78-98); MEAN PLATELET VOLUME 7.9 FL (7.4-10.4); MONOCYTES # (AUTO) 0.5 X10'3 (0-0.9); NEUTROPHILS # (AUTO) 8.2 X10'3 (1.8-7.7); NEUTROPHILS % (AUTO) 85.8 % (42-75); PLATELET COUNT 165 X10'3 (140-440); RED BLOOD COUNT 2.85 X10'6 (4.70-6.10); WHITE BLOOD COUNT 9.5 X10'3 (4.5-11.0)
[2023-03-03 14:50] LABS: ALBUMIN 3.5 G/DL (3.4-5.0); ANION GAP 7 (8-16); BLOOD UREA NITROGEN 18 MG/DL (7-18); BUN/CREATININE RATIO 21.2 (10.0-20.0); CALCIUM 8.2 MG/DL (8.5-10.1); CHLORIDE 106 MMOL/L (99-107); CREATININE 0.85 MG/DL (0.60-1.10); GLUCOSE 168 MG/DL (70-104); MAGNESIUM 2.3 MG/DL (1.5-2.4); POTASSIUM 4.5 MMOL/L (3.5-5.1); SODIUM 140 MMOL/L (135-145); eCRCL 71 ML/MIN; eGFR 90 ML/MIN
[2023-03-03] MEDS ORDERED: acetaminophen 325mg/10.15ml oral unit dose solution OGT PRN (15:15)
[2023-03-03] MEDS ORDERED: magnesium hydroxide 30ml (MOM) UD suspension OGT PRN (15:16)
[2023-03-03] MEDS ORDERED: Neutra Phos packet OGT PRN (15:16)
[2023-03-03] MEDS: magnesium 2GM in 50ml NS 50 ML IV PRN (16:32)
[2023-03-03 17:05] LABS: ABG HCO3 25.2 mmol/L (22.0-26.0); ABG OXYGEN SATURATION 96.9 % (94-97); ABG PCO2 (T) 39.4 mmHg (35.0-48.0); ABG PH (T) 7.427 (7.340-7.440); ABG PO2 (T) 97.7 mmHg (75.0-100.0); FCOHb 0.4 % (0.0-3.9); FHHb 3.1 % (0.0-5.0); FMetHb 0.3 % (0.0-1.5); FO2Hb 96.2 % (94-97); MODE VENT - SIMV; PATIENT TEMPERATURE 37.7; PEEP 5 cm H2O; RESPIRATORY RATE 16 b/min; TIDAL VOLUME 400 mL; TOTAL HEMOGLOBIN 9.3 G/dl (14.0-17.9)
[2023-03-03] MEDS: gabapentin 300mg capsule OGT SCH (20:29)
[2023-03-03] MEDS: atorvastatin 10mg tablet OGT SCH (20:30)
[2023-03-03] MEDS: sennosides/docusate sodium tablet OGT SCH (20:30)
[2023-03-03 21:23] LABS: ALBUMIN 3.3 G/DL (3.4-5.0); ANION GAP 7 (8-16); BLOOD UREA NITROGEN 20 MG/DL (7-18); BUN/CREATININE RATIO 22.2 (10.0-20.0); CALCIUM 8.1 MG/DL (8.5-10.1); CHLORIDE 104 MMOL/L (99-107); GLUCOSE 183 MG/DL (70-104); MAGNESIUM 2.4 MG/DL (1.5-2.4); PHOSPHORUS 3.2 MG/DL (2.3-4.5); POTASSIUM 4.1 MMOL/L (3.5-5.1); SODIUM 139 MMOL/L (135-145); TOTAL CARBON DIOXIDE 27.8 MMOL/L (24-32); eCRCL 67 ML/MIN; eGFR 84 ML/MIN
[2023-03-03] MEDS: albumin (Human) 5% 250ml 250 ML IV PRN (22:07)
[2023-03-03] MEDS ORDERED: acetaminophen 1,000mg/100ml IV 100 ML IV SCH (22:15)
[2023-03-03] MEDS: acetylcysteine 200 MG/ml 4ml vial INH SCH (23:37)
[2023-03-03] MEDS: NORepinephrine 8mg/ 250ml NS 250 ML IV SCH (23:38)
[2023-03-04] VITALS (41 sets, daily range): BP systolic 87–128; BP diastolic 44–62; PULSE 91–116; RESP 23–42; O2SAT 94–99
[2023-03-04] MEDS: morphine 4 MG/ML inj SYRINge IV PRN (00:03)
[2023-03-04] MEDS: acetaminophen 1,000mg/100ml IV 100 ML IV PRN ×2 (00:03→12:42)
[2023-03-04] MEDS: furosemide inj 100 MG in normal saline 100ml IV soln 90 ML IV SCH ×3 (01:15→15:59)
[2023-03-04] MEDS: clindamycin 600mg/D5W 50ml 50 ML IV SCH ×2 (02:05→07:46)
[2023-03-04] MEDS: metoclopramide 5 mg/ml inj IV SCH ×4 (02:05→20:09)
[2023-03-04] MEDS: DOPamine 400mg/D5W 250ml 250 ML IV PRN (02:05)
[2023-03-04 02:33] LABS: BASOPHILS % (AUTO) 0.2 % (0-1); EOSINOPHILS # (AUTO) 0.1 X10'3 (0-0.9); EOSINOPHILS % (AUTO) 0.9 % (0-6); HEMATOCRIT 26.6 % (42.0-52.0); HEMOGLOBIN 8.8 g/dl (14.0-17.9); LYMPHOCYTES # (AUTO) 0.7 X10'3 (1.1-4.8); MEAN CORPUSCULAR HEMOGLOBIN 28.7 PG (27.0-31.0); MEAN CORPUSCULAR VOLUME 87.1 FL (78-98); MEAN PLATELET VOLUME 7.8 FL (7.4-10.4); MONOCYTES # (AUTO) 0.4 X10'3 (0-0.9); MONOCYTES % (AUTO) 4.9 % (2-12); NEUTROPHILS # (AUTO) 7.1 X10'3 (1.8-7.7); PLATELET COUNT 153 X10'3 (140-440); RED BLOOD COUNT 3.05 X10'6 (4.70-6.10); WHITE BLOOD COUNT 8.3 X10'3 (4.5-11.0)
[2023-03-04 02:35] LABS: ALBUMIN 3.4 G/DL (3.4-5.0); ANION GAP 8 (8-16); BLOOD UREA NITROGEN 17 MG/DL (7-18); BUN/CREATININE RATIO 22.7 (10.0-20.0); CHLORIDE 104 MMOL/L (99-107); CREATININE 0.75 MG/DL (0.60-1.10); GLUCOSE 158 MG/DL (70-104); MAGNESIUM 2.5 MG/DL (1.5-2.4); PHOSPHORUS 3.1 MG/DL (2.3-4.5); POTASSIUM 4.4 MMOL/L (3.5-5.1); SODIUM 139 MMOL/L (135-145); eCRCL 80 ML/MIN; eGFR > 90 ML/MIN
[2023-03-04 03:15] LABS: ABG BASE EXCESS 1.7 mmol/L (-2.0-2.0); ABG HCO3 26.1 mmol/L (22.0-26.0); ABG OXYGEN SATURATION 96.6 % (94-97); ABG PCO2 (T) 41.4 mmHg (35.0-48.0); ABG PH (T) 7.421 (7.340-7.440); ABG PO2 (T) 97.3 mmHg (75.0-100.0); FCOHb 0.3 % (0.0-3.9); FHHb 3.4 % (0.0-5.0); FMetHb 0.3 % (0.0-1.5); MODE SIMV; PATIENT TEMPERATURE 37.9; PEEP 5 cm H2O; RESPIRATORY RATE 16 b/min; TIDAL VOLUME 400 mL; TOTAL HEMOGLOBIN 9.6 G/dl (14.0-17.9)
[2023-03-04] MEDS: HYDROcodone/acetaminophen 10/325mg tab PO PRN ×2 (03:49→07:47)
[2023-03-04] MEDS: potassium Cl 20mEq/100mL bag 100 ML IV PRN ×4 (03:50→23:07)
[2023-03-04] MEDS: propofol 1000mg/100ml bottle 100 ML IV SCH ×2 (03:50→21:56)
[2023-03-04] MEDS: normal saline 1000ml 1,000 ML IV SCH (04:25)
[2023-03-04] MEDS: ipratropium/albuterol 3ml nebule NEB SCH ×3 (07:27→23:55)
[2023-03-04] MEDS: acetylcysteine 200 MG/ml 4ml vial INH SCH ×3 (07:28→23:55)
[2023-03-04] MEDS ORDERED: pantoprazole 40mg Tablet.DR PO SCH (07:30)
[2023-03-04] MEDS: lansoprazole 15mg solutab OGT SCH (07:47)
[2023-03-04] MEDS: aspirin 81mg tab.chew OGT SCH (07:47)
[2023-03-04] MEDS: sennosides/docusate sodium tablet OGT SCH ×2 (07:47→20:09)
[2023-03-04] MEDS: clopidogrel 75mg tablet OGT SCH (07:48)
[2023-03-04] MEDS: gabapentin 300mg capsule OGT SCH (07:48)
[2023-03-04 09:30] LABS: BASOPHILS % (AUTO) 0.2 % (0-1); EOSINOPHILS # (AUTO) 0.2 X10'3 (0-0.9); HEMATOCRIT 26.8 % (42.0-52.0); LYMPHOCYTES # (AUTO) 0.6 X10'3 (1.1-4.8); LYMPHOCYTES % (AUTO) 7.4 % (21-51); MEAN CORPUSCULAR HEMOGLOBIN 28.9 PG (27.0-31.0); MEAN CORPUSCULAR HGB CONC 33.5 g/dL (33.0-36.5); MEAN CORPUSCULAR VOLUME 86.3 FL (78-98); MEAN PLATELET VOLUME 7.6 FL (7.4-10.4); MONOCYTES # (AUTO) 0.3 X10'3 (0-0.9); MONOCYTES % (AUTO) 4.1 % (2-12); NEUTROPHILS # (AUTO) 7.2 X10'3 (1.8-7.7); NEUTROPHILS % (AUTO) 86.3 % (42-75); PLATELET COUNT 159 X10'3 (140-440); RED CELL DISTRIBUTION WIDTH 14.7 % (11.5-14.5); WHITE BLOOD COUNT 8.3 X10'3 (4.5-11.0)
[2023-03-04 09:44] LABS: ANION GAP 9 (8-16); BLOOD UREA NITROGEN 21 MG/DL (7-18); BUN/CREATININE RATIO 29.2 (10.0-20.0); CALCIUM 7.9 MG/DL (8.5-10.1); CHLORIDE 103 MMOL/L (99-107); CREATININE 0.72 MG/DL (0.60-1.10); GLUCOSE 193 MG/DL (70-104); MAGNESIUM 2.2 MG/DL (1.5-2.4); PHOSPHORUS 3.3 MG/DL (2.3-4.5); POTASSIUM 4.4 MMOL/L (3.5-5.1); SODIUM 137 MMOL/L (135-145); TOTAL CARBON DIOXIDE 25.5 MMOL/L (24-32); eCRCL 83 ML/MIN; eGFR > 90 ML/MIN
[2023-03-04 10:06] LABS: TOTAL CELLS COUNTED 100
[2023-03-04 10:07] LABS: PLATELET ESTIMATE NORMAL; POIKILOCYTOSIS FEW; POLYCHROMASIA 1+
[2023-03-04] MEDS ORDERED: albumin (human) 25% 100 ML IV solution IV ONE (11:00)
[2023-03-04] MEDS ORDERED: vancomycin/NS 1 GM ADD-VANTAGE 250 ML IV SCH (11:00)
[2023-03-04] MEDS: dexmedetomidin/NS 400mcg/100ml 100 ML IV SCH ×2 (11:44→23:58)
[2023-03-04] MEDS: CefTRIAXone/D5W-Rocephin 1gm 50 ML IV SCH ×2 (12:39→20:09)
[2023-03-04] MEDS: metroNIDAZOLE-Flagyl 500mg/NS 100 ML IV SCH ×3 (12:42→23:56)
[2023-03-04] MEDS: vancomycin/NS 1 GM ADD-VANTAGE 250 ML IV SCH (12:42)
[2023-03-04] MEDS: DOBUTamine-DoBUTrex 500mg/D5W 250 ML IV SCH (12:42)
[2023-03-04] MEDS ORDERED: glucagon, human recombinant 1mg kit SUBCUT PRN (14:20)
[2023-03-04] MEDS ORDERED: DEXTROSE 15 GM of carb/4 tabs (each vial/BOTTLE has 4 tablets) PO PRN ×2 (14:20)
[2023-03-04 14:34] LABS: BASOPHILS % (AUTO) 0.4 % (0-1); EOSINOPHILS # (AUTO) 0.1 X10'3 (0-0.9); HEMATOCRIT 25.9 % (42.0-52.0); HEMOGLOBIN 8.5 g/dl (14.0-17.9); LYMPHOCYTES # (AUTO) 0.5 X10'3 (1.1-4.8); MEAN CORPUSCULAR HEMOGLOBIN 28.7 PG (27.0-31.0); MEAN CORPUSCULAR HGB CONC 32.9 g/dL (33.0-36.5); MEAN CORPUSCULAR VOLUME 87.2 FL (78-98); MEAN PLATELET VOLUME 7.9 FL (7.4-10.4); MONOCYTES # (AUTO) 0.3 X10'3 (0-0.9); MONOCYTES % (AUTO) 4.4 % (2-12); NEUTROPHILS # (AUTO) 5.8 X10'3 (1.8-7.7); NEUTROPHILS % (AUTO) 86.2 % (42-75); PLATELET COUNT 145 X10'3 (140-440); RED BLOOD COUNT 2.97 X10'6 (4.70-6.10); RED CELL DISTRIBUTION WIDTH 14.8 % (11.5-14.5); WHITE BLOOD COUNT 6.7 X10'3 (4.5-11.0)
[2023-03-04 14:50] LABS: ALBUMIN 3.3 G/DL (3.4-5.0); ANION GAP 10 (8-16); BLOOD UREA NITROGEN 21 MG/DL (7-18); BUN/CREATININE RATIO 27.3 (10.0-20.0); CALCIUM 7.9 MG/DL (8.5-10.1); CHLORIDE 102 MMOL/L (99-107); CREATININE 0.77 MG/DL (0.60-1.10); GLUCOSE 182 MG/DL (70-104); MAGNESIUM 2.2 MG/DL (1.5-2.4); PHOSPHORUS 3.1 MG/DL (2.3-4.5); POTASSIUM 4.1 MMOL/L (3.5-5.1); PRO BRAIN NATRIURETIC PEPTIDE 4040 PG/ML (0-125); SODIUM 136 MMOL/L (135-145); TOTAL CARBON DIOXIDE 23.9 MMOL/L (24-32); eCRCL 78 ML/MIN; eGFR > 90 ML/MIN
[2023-03-04] MEDS: CALCIUM GLUC 1gm/50ml NACL,iso 100 ML IV SCH (14:51)
[2023-03-04] MEDS ORDERED: DEXTROSE 15 GM of carb/4 tabs (each vial/BOTTLE has 4 tablets) OGT PRN ×2 (15:19)
[2023-03-04] MEDS ORDERED: HYDROcodone/acetaminophen 7.5MG/325MG per 15ml UD CUP PO PRN (15:20)
[2023-03-04] MEDS ORDERED: HYDROcodone/acetaminophen 7.5MG/325MG per 15ml UD CUP OGT PRN ×2 (15:20→15:21)
[2023-03-04] MEDS: magnesium 2GM in 50ml NS 50 ML IV PRN ×2 (16:00→23:07)
[2023-03-04] MEDS: NORepinephrine 8mg/ 250ml NS 250 ML IV SCH (17:16)
[2023-03-04] MEDS: HYDROcodone/acetaminophen 7.5MG/325MG per 15ml UD CUP OGT PRN ×2 (18:40→23:54)
[2023-03-04] MEDS: atorvastatin 10mg tablet OGT SCH (20:09)
[2023-03-04] MEDS: enoxaparin 40mg/0.4ml syringe SUBCUT SCH (20:10)
[2023-03-04] MEDS: insulin regular, human U-100 3ml vial - multi-dose SQ SCH (21:05)
[2023-03-04] MEDS: insulin glargine (Lantus) pen - multi-dose SQ SCH (21:06)
[2023-03-04 22:45] LABS: ALBUMIN 2.9 G/DL (3.4-5.0); ANION GAP 9 (8-16); BLOOD UREA NITROGEN 22 MG/DL (7-18); BUN/CREATININE RATIO 29.7 (10.0-20.0); CALCIUM 7.9 MG/DL (8.5-10.1); CHLORIDE 103 MMOL/L (99-107); CREATININE 0.74 MG/DL (0.60-1.10); GLUCOSE 200 MG/DL (70-104); MAGNESIUM 2.3 MG/DL (1.5-2.4); POTASSIUM 3.8 MMOL/L (3.5-5.1); SODIUM 136 MMOL/L (135-145); TOTAL CARBON DIOXIDE 24.4 MMOL/L (24-32); eCRCL 81 ML/MIN; eGFR > 90 ML/MIN
[2023-03-05] VITALS (47 sets, daily range): BP systolic 99–140; BP diastolic 40–66; PULSE 86–106; RESP 28–48; O2SAT 90–100
[2023-03-05] MEDS: potassium Cl 20mEq/100mL bag 100 ML IV PRN ×7 (00:10→16:12)
[2023-03-05] MEDS: normal saline 1000ml 1,000 ML IV SCH ×2 (01:16→20:25)
[2023-03-05] MEDS: vancomycin/NS 1 GM ADD-VANTAGE 250 ML IV SCH ×2 (01:16→11:49)
[2023-03-05] MEDS: metoclopramide 5 mg/ml inj IV SCH ×3 (02:15→14:09)
[2023-03-05] MEDS: insulin regular, human U-100 3ml vial - multi-dose SQ SCH ×4 (02:23→21:01)
[2023-03-05 02:38] LABS: BASOPHILS % (AUTO) 0.1 % (0-1); EOSINOPHILS # (AUTO) 0.3 X10'3 (0-0.9); EOSINOPHILS % (AUTO) 4.5 % (0-6); HEMOGLOBIN 8.2 g/dl (14.0-17.9); LYMPHOCYTES # (AUTO) 0.5 X10'3 (1.1-4.8); LYMPHOCYTES % (AUTO) 7.3 % (21-51); MEAN CORPUSCULAR HEMOGLOBIN 28.6 PG (27.0-31.0); MEAN CORPUSCULAR HGB CONC 32.8 g/dL (33.0-36.5); MEAN CORPUSCULAR VOLUME 87.3 FL (78-98); MEAN PLATELET VOLUME 8.1 FL (7.4-10.4); MONOCYTES # (AUTO) 0.4 X10'3 (0-0.9); MONOCYTES % (AUTO) 5.9 % (2-12); NEUTROPHILS # (AUTO) 5.5 X10'3 (1.8-7.7); NEUTROPHILS % (AUTO) 82.2 % (42-75); PLATELET COUNT 131 X10'3 (140-440); RED BLOOD COUNT 2.86 X10'6 (4.70-6.10); RED CELL DISTRIBUTION WIDTH 15.4 % (11.5-14.5); WHITE BLOOD COUNT 6.7 X10'3 (4.5-11.0)
[2023-03-05 02:54] LABS: ALBUMIN 2.7 G/DL (3.4-5.0); ANION GAP 6 (8-16); BLOOD UREA NITROGEN 23 MG/DL (7-18); BUN/CREATININE RATIO 30.7 (10.0-20.0); CALCIUM 7.8 MG/DL (8.5-10.1); CHLORIDE 103 MMOL/L (99-107); CREATININE 0.75 MG/DL (0.60-1.10); GLUCOSE 172 MG/DL (70-104); MAGNESIUM 2.5 MG/DL (1.5-2.4); PHOSPHORUS 2.8 MG/DL (2.3-4.5); POTASSIUM 4.2 MMOL/L (3.5-5.1); SODIUM 136 MMOL/L (135-145); TOTAL CARBON DIOXIDE 27.3 MMOL/L (24-32); eCRCL 80 ML/MIN; eGFR > 90 ML/MIN
[2023-03-05 03:33] LABS: ABG HCO3 24.8 mmol/L (22.0-26.0); ABG OXYGEN SATURATION 97.1 % (94-97); ABG PCO2 (T) 36.6 mmHg (35.0-48.0); ABG PO2 (T) 101.1 mmHg (75.0-100.0); FCOHb 0.3 % (0.0-3.9); FHHb 2.9 % (0.0-5.0); FMetHb 0.2 % (0.0-1.5); FO2Hb 96.6 % (94-97); MODE SIMV; PATIENT TEMPERATURE 37.1; PEEP 5 cm H2O; RESPIRATORY RATE 16 b/min; TIDAL VOLUME 400 mL; TOTAL HEMOGLOBIN 10.3 G/dl (14.0-17.9)
[2023-03-05] MEDS: propofol 1000mg/100ml bottle 100 ML IV SCH ×2 (04:32→10:13)
[2023-03-05] MEDS: ipratropium/albuterol 3ml nebule NEB SCH ×3 (06:53→22:41)
[2023-03-05] MEDS: acetylcysteine 200 MG/ml 4ml vial INH SCH ×3 (06:53→22:41)
[2023-03-05] MEDS: clopidogrel 75mg tablet OGT SCH (08:23)
[2023-03-05] MEDS: CefTRIAXone/D5W-Rocephin 1gm 50 ML IV SCH ×2 (08:24→20:35)
[2023-03-05] MEDS: sennosides/docusate sodium tablet OGT SCH ×2 (08:24→20:35)
[2023-03-05] MEDS: aspirin 81mg tab.chew OGT SCH ×2 (08:24→08:28)
[2023-03-05] MEDS: lansoprazole 15mg solutab OGT SCH (08:25)
[2023-03-05] MEDS: metroNIDAZOLE-Flagyl 500mg/NS 100 ML IV SCH ×2 (08:25→16:13)
[2023-03-05 08:41] LABS: ALANINE AMINOTRANSFERASE 13 U/L (12-78); ALBUMIN 2.8 G/DL (3.4-5.0); ALBUMIN/GLOBULIN RATIO 0.7 (1.1-1.5); ALKALINE PHOSPHATASE 43 IU/L (46-116); ANION GAP 7 (8-16); ASPARTATE AMINO TRANSFERASE 25 U/L (10-37); BILIRUBIN,TOTAL 0.7 MG/DL (0.1-1.0); BLOOD UREA NITROGEN 24 MG/DL (7-18); BUN/CREATININE RATIO 31.2 (10.0-20.0); CALCIUM 7.9 MG/DL (8.5-10.1); CHLORIDE 102 MMOL/L (99-107); CREATININE 0.77 MG/DL (0.60-1.10); GLUCOSE 160 MG/DL (70-104); POTASSIUM 4.1 MMOL/L (3.5-5.1); SODIUM 136 MMOL/L (135-145); TOTAL CARBON DIOXIDE 26.6 MMOL/L (24-32); TOTAL PROTEIN 6.8 G/DL (6.4-8.2); eCRCL 78 ML/MIN; eGFR > 90 ML/MIN
[2023-03-05] MEDS: furosemide inj 100 MG in normal saline 100ml IV soln 90 ML IV SCH ×2 (08:45→12:27)
[2023-03-05] MEDS: HYDROcodone/acetaminophen 7.5MG/325MG per 15ml UD CUP OGT PRN ×2 (10:14→15:15)
[2023-03-05 11:34] LABS: PHOSPHORUS 2.7 MG/DL (2.3-4.5)
[2023-03-05] MEDS: dexmedetomidin/NS 400mcg/100ml 100 ML IV SCH (12:14)
[2023-03-05] MEDS: NORepinephrine 8mg/ 250ml NS 250 ML IV SCH ×2 (13:57→20:41)
[2023-03-05] MEDS: mineral oil/petrolatum ophthal oint EACHEYE SCH ×2 (14:09→20:36)
[2023-03-05 14:32] LABS: ALANINE AMINOTRANSFERASE 11 U/L (12-78); ALBUMIN 2.7 G/DL (3.4-5.0); ALBUMIN/GLOBULIN RATIO 0.6 (1.1-1.5); ALKALINE PHOSPHATASE 44 IU/L (46-116); ANION GAP 7 (8-16); ASPARTATE AMINO TRANSFERASE 33 U/L (10-37); BILIRUBIN,TOTAL 0.6 MG/DL (0.1-1.0); BLOOD UREA NITROGEN 24 MG/DL (7-18); BUN/CREATININE RATIO 29.3 (10.0-20.0); CHLORIDE 103 MMOL/L (99-107); CREATININE 0.82 MG/DL (0.60-1.10); GLUCOSE 161 MG/DL (70-104); MAGNESIUM 2.1 MG/DL (1.5-2.4); PHOSPHORUS 3.1 MG/DL (2.3-4.5); POTASSIUM 4.2 MMOL/L (3.5-5.1); SODIUM 136 MMOL/L (135-145); TOTAL CARBON DIOXIDE 25.9 MMOL/L (24-32); TOTAL PROTEIN 6.9 G/DL (6.4-8.2); eCRCL 73 ML/MIN; eGFR > 90 ML/MIN
[2023-03-05] MEDS: magnesium 2GM in 50ml NS 50 ML IV PRN (14:45)
[2023-03-05] MEDS: CALCIUM GLUC 1gm/50ml NACL,iso 100 ML IV SCH (15:19)
[2023-03-05] MEDS: atorvastatin 10mg tablet OGT SCH (20:35)
[2023-03-05] MEDS: enoxaparin 40mg/0.4ml syringe SUBCUT SCH (20:36)
[2023-03-05] MEDS ORDERED: albumin (human) 25% 100ml IV 100 ML IV ONE (20:37)
[2023-03-05] MEDS ORDERED: albumin (human) 25% 100 ML IV solution IV ONE (20:40)
[2023-03-05] MEDS: insulin glargine (Lantus) pen - multi-dose SQ SCH (21:03)
[2023-03-05 21:33] LABS: ALANINE AMINOTRANSFERASE 15 U/L (12-78); ALBUMIN 2.7 G/DL (3.4-5.0); ALBUMIN/GLOBULIN RATIO 0.6 (1.1-1.5); ALKALINE PHOSPHATASE 43 IU/L (46-116); ANION GAP 8 (8-16); ASPARTATE AMINO TRANSFERASE 25 U/L (10-37); BILIRUBIN,TOTAL 0.6 MG/DL (0.1-1.0); BLOOD UREA NITROGEN 24 MG/DL (7-18); BUN/CREATININE RATIO 32.9 (10.0-20.0); CALCIUM 8.3 MG/DL (8.5-10.1); CHLORIDE 101 MMOL/L (99-107); CREATININE 0.73 MG/DL (0.60-1.10); GLUCOSE 141 MG/DL (70-104); MAGNESIUM 2.5 MG/DL (1.5-2.4); PHOSPHORUS 3.3 MG/DL (2.3-4.5); POTASSIUM 4.2 MMOL/L (3.5-5.1); SODIUM 136 MMOL/L (135-145); TOTAL CARBON DIOXIDE 27.4 MMOL/L (24-32); eCRCL 82 ML/MIN; eGFR > 90 ML/MIN
[2023-03-05] MEDS ORDERED: CALCIUM GLUC 1gm/50ml NACL,iso 50 ML IV ONE (22:15)
[2023-03-05] MEDS: FENTANYL-0.9 % NACL/PF 100 ML IV PRN (22:34)
[2023-03-05 22:37] LABS: ABG BASE EXCESS 2.9 mmol/L (-2.0-2.0); ABG HCO3 25.9 mmol/L (22.0-26.0); ABG OXYGEN SATURATION 89.4 % (94-97); ABG PO2 (T) 53.7 mmHg (75.0-100.0); FCOHb 0.1 % (0.0-3.9); FHHb 10.6 % (0.0-5.0); FMetHb 0.3 % (0.0-1.5); MODE SIMV; PATIENT TEMPERATURE 36.6; PEEP 8 cm H2O; RESPIRATORY RATE 16 b/min; TIDAL VOLUME 400 mL; TOTAL HEMOGLOBIN 10.1 G/dl (14.0-17.9)
[2023-03-05] MEDS ORDERED: midazolam 1 mg/ML 2ml injection ONE (23:06)
[2023-03-05] MEDS ORDERED: MIDAZolam 5mg/ml 2ml vial IV ONE (23:15)
[2023-03-05] MEDS ORDERED: VANCOMYCIN LEVEL IV ONE (23:30)
[2023-03-06] VITALS (45 sets, daily range): BP systolic 88–127; BP diastolic 40–58; PULSE 88–113; RESP 15–50; O2SAT 93–100
[2023-03-06] MEDS: metroNIDAZOLE-Flagyl 500mg/NS 100 ML IV SCH ×3 (00:07→15:43)
[2023-03-06] MEDS: midazolam 100mg in NS 100ml 100 ML IV PRN ×2 (00:09→12:02)
[2023-03-06] MEDS ORDERED: acetaminophen 325mg tablet PO PRN ×2 (01:00)
[2023-03-06] MEDS: potassium Cl 20mEq/100mL bag 100 ML IV PRN ×6 (01:03→15:39)
[2023-03-06] MEDS: vancomycin/NS 1 GM ADD-VANTAGE 250 ML IV SCH (02:08)
[2023-03-06] MEDS: mineral oil/petrolatum ophthal oint EACHEYE SCH ×4 (02:10→19:48)
[2023-03-06] MEDS: DOBUTamine-DoBUTrex 500mg/D5W 250 ML IV SCH (03:34)
[2023-03-06 03:41] LABS: ABG HCO3 26.1 mmol/L (22.0-26.0); ABG OXYGEN SATURATION 98.7 % (94-97); ABG PCO2 (T) 40.1 mmHg (35.0-48.0); ABG PH (T) 7.435 (7.340-7.440); ABG PO2 (T) 133.7 mmHg (75.0-100.0); FCOHb 0.3 % (0.0-3.9); FHHb 1.3 % (0.0-5.0); FMetHb 0.3 % (0.0-1.5); FO2Hb 98.1 % (94-97); MODE SIMV; PATIENT TEMPERATURE 37.8; PEEP 8 cm H2O; RESPIRATORY RATE 16 b/min; TIDAL VOLUME 400 mL; TOTAL HEMOGLOBIN 9.7 G/dl (14.0-17.9)
[2023-03-06 03:44] LABS: BASOPHILS # (AUTO) 0.1 X10'3 (0-0.2); BASOPHILS % (AUTO) 0.7 % (0-1); EOSINOPHILS # (AUTO) 0.5 X10'3 (0-0.9); EOSINOPHILS % (AUTO) 6.3 % (0-6); HEMATOCRIT 26.5 % (42.0-52.0); HEMOGLOBIN 8.9 g/dl (14.0-17.9); LYMPHOCYTES # (AUTO) 0.6 X10'3 (1.1-4.8); LYMPHOCYTES % (AUTO) 7.5 % (21-51); MEAN CORPUSCULAR HEMOGLOBIN 29.1 PG (27.0-31.0); MEAN CORPUSCULAR HGB CONC 33.6 g/dL (33.0-36.5); MEAN CORPUSCULAR VOLUME 86.6 FL (78-98); MEAN PLATELET VOLUME 7.8 FL (7.4-10.4); MONOCYTES # (AUTO) 0.6 X10'3 (0-0.9); MONOCYTES % (AUTO) 7.4 % (2-12); NEUTROPHILS # (AUTO) 6.5 X10'3 (1.8-7.7); NEUTROPHILS % (AUTO) 78.1 % (42-75); PLATELET COUNT 173 X10'3 (140-440); RED BLOOD COUNT 3.06 X10'6 (4.70-6.10); RED CELL DISTRIBUTION WIDTH 15.5 % (11.5-14.5); WHITE BLOOD COUNT 8.3 X10'3 (4.5-11.0)
[2023-03-06 04:05] LABS: ALANINE AMINOTRANSFERASE 14 U/L (12-78); ALBUMIN/GLOBULIN RATIO 0.7 (1.1-1.5); ALKALINE PHOSPHATASE 41 IU/L (46-116); ANION GAP 6 (8-16); ASPARTATE AMINO TRANSFERASE 23 U/L (10-37); BILIRUBIN,TOTAL 0.7 MG/DL (0.1-1.0); BLOOD UREA NITROGEN 23 MG/DL (7-18); BUN/CREATININE RATIO 29.9 (10.0-20.0); CALCIUM 8.5 MG/DL (8.5-10.1); CHLORIDE 101 MMOL/L (99-107); CREATININE 0.77 MG/DL (0.60-1.10); GLUCOSE 96 MG/DL (70-104); MAGNESIUM 2.2 MG/DL (1.5-2.4); POTASSIUM 5.1 MMOL/L (3.5-5.1); PREALBUMIN 10.4 MG/DL (19-36); SODIUM 134 MMOL/L (135-145); TOTAL CARBON DIOXIDE 27.4 MMOL/L (24-32); TOTAL PROTEIN 7.1 G/DL (6.4-8.2); eCRCL 78 ML/MIN; eGFR > 90 ML/MIN
[2023-03-06] MEDS: magnesium 2GM in 50ml NS 50 ML IV PRN ×2 (04:32→14:58)
[2023-03-06] MEDS: furosemide inj 100 MG in normal saline 100ml IV soln 90 ML IV SCH ×2 (04:45→10:29)
[2023-03-06 06:34] LABS: ISTAT HGB MIX 11.2 g/dl (14.0-17.9); ISTAT Hct MIX 33 %PCV (42-52); ISTAT O2 SATURATION MIX VENOUS 71 % (60-80); ISTAT SOURCE VEN
[2023-03-06 06:39] LABS: ACT @ 1.70 U 307 SEC (193-297); ACT @ 2.84 U 414 SEC (260-420); BASELINE ACT 193 SEC (101-148); PATIENT WEIGHT 66.0k KG
[2023-03-06] MEDS: CefTRIAXone/D5W-Rocephin 1gm 50 ML IV SCH ×2 (06:57→19:46)
[2023-03-06] MEDS: acetylcysteine 200 MG/ml 4ml vial INH SCH ×2 (07:00→15:38)
[2023-03-06] MEDS ORDERED: albuterol 2.5 MG/3 ML nebule NEB SCH (07:00)
[2023-03-06] MEDS: albuterol 2.5 MG/3 ML nebule NEB SCH ×2 (07:09→15:38)
[2023-03-06] MEDS: clopidogrel 75mg tablet OGT SCH (07:15)
[2023-03-06] MEDS: sennosides/docusate sodium tablet OGT SCH ×2 (07:15→19:47)
[2023-03-06] MEDS: aspirin 81mg tab.chew OGT SCH (07:18)
[2023-03-06] MEDS: insulin regular, human U-100 3ml vial - multi-dose SQ SCH ×3 (07:26→20:27)
[2023-03-06 08:42] LABS: ALANINE AMINOTRANSFERASE 10 U/L (12-78); ALBUMIN 2.8 G/DL (3.4-5.0); ALBUMIN/GLOBULIN RATIO 0.6 (1.1-1.5); ALKALINE PHOSPHATASE 39 IU/L (46-116); ANION GAP 9 (8-16); ASPARTATE AMINO TRANSFERASE 27 U/L (10-37); BILIRUBIN,TOTAL 0.7 MG/DL (0.1-1.0); BLOOD UREA NITROGEN 22 MG/DL (7-18); BUN/CREATININE RATIO 29.7 (10.0-20.0); CALCIUM 8.6 MG/DL (8.5-10.1); CHLORIDE 99 MMOL/L (99-107); CREATININE 0.74 MG/DL (0.60-1.10); GLUCOSE 173 MG/DL (70-104); MAGNESIUM 2.6 MG/DL (1.5-2.4); PHOSPHORUS 4.2 MG/DL (2.3-4.5); POTASSIUM 3.9 MMOL/L (3.5-5.1); SODIUM 134 MMOL/L (135-145); TOTAL CARBON DIOXIDE 26.5 MMOL/L (24-32); TOTAL PROTEIN 7.2 G/DL (6.4-8.2); eCRCL 81 ML/MIN; eGFR > 90 ML/MIN
[2023-03-06] MEDS ORDERED: albumin (Human) 5% 250ml 250 ML IV ONE ×2 (09:00)
[2023-03-06] MEDS: pantoprazole 40MG/NS 100ML BAG 100 ML IV SCH ×2 (09:01→20:34)
[2023-03-06] MEDS: ipratropium/albuterol 3ml nebule NEB SCH ×3 (10:26→23:21)
[2023-03-06] MEDS: FENTANYL-0.9 % NACL/PF 100 ML IV PRN (12:03)
[2023-03-06] MEDS: VANCOmycin 1250MG/NS 250ml Bag 250 ML IV SCH (12:04)
[2023-03-06] MEDS ORDERED: POTASSIUM BICARB 20meq eff tab 20 MEQ TABLET.EFF OGT PRN (13:25)
[2023-03-06] MEDS: metoclopramide 5 mg/ml inj IV SCH ×2 (13:45→19:47)
[2023-03-06 14:12] LABS: ALANINE AMINOTRANSFERASE 15 U/L (12-78); ALBUMIN/GLOBULIN RATIO 0.8 (1.1-1.5); ALKALINE PHOSPHATASE 37 IU/L (46-116); ANION GAP 6 (8-16); ASPARTATE AMINO TRANSFERASE 21 U/L (10-37); BILIRUBIN,TOTAL 0.7 MG/DL (0.1-1.0); BLOOD UREA NITROGEN 24 MG/DL (7-18); BUN/CREATININE RATIO 34.8 (10.0-20.0); CALCIUM 8.4 MG/DL (8.5-10.1); CHLORIDE 101 MMOL/L (99-107); CREATININE 0.69 MG/DL (0.60-1.10); GLUCOSE 143 MG/DL (70-104); POTASSIUM 4.2 MMOL/L (3.5-5.1); SODIUM 132 MMOL/L (135-145); TOTAL CARBON DIOXIDE 25.5 MMOL/L (24-32); eCRCL 87 ML/MIN; eGFR > 90 ML/MIN
[2023-03-06 14:38] LABS: MAGNESIUM 2.2 MG/DL (1.5-2.4)
[2023-03-06] MEDS: normal saline 1000ml 1,000 ML IV SCH (16:25)
[2023-03-06] MEDS: acetaminophen 325mg/10.15ml oral unit dose solution OGT PRN (16:34)
[2023-03-06] MEDS: enoxaparin 40mg/0.4ml syringe SUBCUT SCH (19:47)
[2023-03-06] MEDS: atorvastatin 10mg tablet OGT SCH (20:02)
[2023-03-06] MEDS: insulin glargine (Lantus) pen - multi-dose SQ SCH (20:28)
[2023-03-07] VITALS (46 sets, daily range): BP systolic 74–177; BP diastolic 37–62; PULSE 89–124; RESP 20–40; O2SAT 90–100
[2023-03-07] MEDS: metroNIDAZOLE-Flagyl 500mg/NS 100 ML IV SCH ×3 (00:04→16:27)
[2023-03-07] MEDS: VANCOmycin 1250MG/NS 250ml Bag 250 ML IV SCH ×2 (00:04→11:56)
[2023-03-07] MEDS: albuterol 2.5 MG/3 ML nebule NEB SCH ×2 (00:52→07:26)
[2023-03-07] MEDS: dexmedetomidin/NS 400mcg/100ml 100 ML IV SCH ×2 (01:51→19:04)
[2023-03-07] MEDS: metoclopramide 5 mg/ml inj IV SCH (02:19)
[2023-03-07] MEDS: mineral oil/petrolatum ophthal oint EACHEYE SCH ×4 (02:19→19:45)
[2023-03-07] MEDS: insulin regular, human U-100 3ml vial - multi-dose SQ SCH ×3 (02:28→15:20)
[2023-03-07] MEDS ORDERED: acetaminophen 325mg tablet PO PRN ×2 (02:35)
[2023-03-07 02:39] LABS: BASOPHILS % (AUTO) 0.2 % (0-1); EOSINOPHILS # (AUTO) 0.4 X10'3 (0-0.9); EOSINOPHILS % (AUTO) 5.1 % (0-6); HEMATOCRIT 25.2 % (42.0-52.0); HEMOGLOBIN 8.2 g/dl (14.0-17.9); LYMPHOCYTES # (AUTO) 0.5 X10'3 (1.1-4.8); LYMPHOCYTES % (AUTO) 7.6 % (21-51); MEAN CORPUSCULAR HEMOGLOBIN 28.3 PG (27.0-31.0); MEAN CORPUSCULAR HGB CONC 32.6 g/dL (33.0-36.5); MEAN CORPUSCULAR VOLUME 86.8 FL (78-98); MEAN PLATELET VOLUME 8.2 FL (7.4-10.4); MONOCYTES # (AUTO) 0.6 X10'3 (0-0.9); MONOCYTES % (AUTO) 8.1 % (2-12); NEUTROPHILS # (AUTO) 5.5 X10'3 (1.8-7.7); PLATELET COUNT 182 X10'3 (140-440); RED BLOOD COUNT 2.91 X10'6 (4.70-6.10); RED CELL DISTRIBUTION WIDTH 15.9 % (11.5-14.5)
[2023-03-07 02:55] LABS: ALANINE AMINOTRANSFERASE 22 U/L (12-78); ALBUMIN 2.7 G/DL (3.4-5.0); ALBUMIN/GLOBULIN RATIO 0.7 (1.1-1.5); ALKALINE PHOSPHATASE 40 IU/L (46-116); ANION GAP 7 (8-16); ASPARTATE AMINO TRANSFERASE 24 U/L (10-37); BILIRUBIN,TOTAL 0.6 MG/DL (0.1-1.0); BLOOD UREA NITROGEN 27 MG/DL (7-18); BUN/CREATININE RATIO 42.9 (10.0-20.0); CALCIUM 8.3 MG/DL (8.5-10.1); CHLORIDE 103 MMOL/L (99-107); CREATININE 0.63 MG/DL (0.60-1.10); GLUCOSE 129 MG/DL (70-104); MAGNESIUM 2.4 MG/DL (1.5-2.4); PHOSPHORUS 3.9 MG/DL (2.3-4.5); POTASSIUM 4.3 MMOL/L (3.5-5.1); SODIUM 135 MMOL/L (135-145); TOTAL CARBON DIOXIDE 24.9 MMOL/L (24-32); TOTAL PROTEIN 6.8 G/DL (6.4-8.2); eCRCL 95 ML/MIN; eGFR > 90 ML/MIN
[2023-03-07 03:49] LABS: ABG BASE EXCESS 1.4 mmol/L (-2.0-2.0); ABG HCO3 25.8 mmol/L (22.0-26.0); ABG OXYGEN SATURATION 94.4 % (94-97); ABG PCO2 (T) 42.3 mmHg (35.0-48.0); ABG PH (T) 7.409 (7.340-7.440); ABG PO2 (T) 79.2 mmHg (75.0-100.0); FCOHb 0.7 % (0.0-3.9); FHHb 5.5 % (0.0-5.0); FMetHb 0.3 % (0.0-1.5); FO2Hb 93.5 % (94-97); MODE SIMV; PATIENT TEMPERATURE 38.3; PEEP 5 cm H2O; RESPIRATORY RATE 16 b/min; TIDAL VOLUME 400 mL; TOTAL HEMOGLOBIN 8.9 G/dl (14.0-17.9)
[2023-03-07] MEDS: magnesium 2GM in 50ml NS 50 ML IV PRN (04:29)
[2023-03-07] MEDS: potassium Cl 20mEq/100mL bag 100 ML IV PRN ×2 (04:30→05:36)
[2023-03-07] MEDS: NORepinephrine 8mg/ 250ml NS 250 ML IV SCH (04:53)
[2023-03-07] MEDS: FENTANYL-0.9 % NACL/PF 100 ML IV PRN ×2 (05:10→19:44)
[2023-03-07] MEDS: midazolam 100mg in NS 100ml 100 ML IV PRN ×2 (05:10→19:05)
[2023-03-07] MEDS: ipratropium/albuterol 3ml nebule NEB SCH ×4 (07:20→21:00)
[2023-03-07] MEDS: pantoprazole 40MG/NS 100ML BAG 100 ML IV SCH ×2 (07:59→19:45)
[2023-03-07] MEDS: sennosides/docusate sodium tablet OGT SCH ×2 (08:00→19:45)
[2023-03-07] MEDS: aspirin 81mg tab.chew OGT SCH (08:01)
[2023-03-07] MEDS: clopidogrel 75mg tablet OGT SCH (08:01)
[2023-03-07] MEDS: CefTRIAXone/D5W-Rocephin 1gm 50 ML IV SCH ×2 (08:24→19:44)
[2023-03-07] MEDS: furosemide 20 MG/2 ML vial IV SCH ×2 (12:00→20:40)
[2023-03-07] MEDS: acetaminophen 325mg/10.15ml oral unit dose solution OGT PRN ×2 (12:05→19:25)
[2023-03-07 18:15] LABS: ABG HCO3 24.6 mmol/L (22.0-26.0); ABG OXYGEN SATURATION 99.4 % (94-97); ABG PCO2 (T) 48.7 mmHg (35.0-48.0); ABG PO2 (T) 274.9 mmHg (75.0-100.0); FCOHb 0.4 % (0.0-3.9); FHHb 0.6 % (0.0-5.0); FMetHb 0.3 % (0.0-1.5); FO2Hb 98.7 % (94-97); MODE VENT - P/C; PATIENT TEMPERATURE 38.8; PEEP 5 cm H2O; RESPIRATORY RATE 16 b/min; TIDAL VOLUME 680 mL; TOTAL HEMOGLOBIN 10.1 G/dl (14.0-17.9)
[2023-03-07] MEDS: enoxaparin 40mg/0.4ml syringe SUBCUT SCH (19:45)
[2023-03-07 19:59] LABS: BILIRUBIN,URINE NEGATIVE (Neg); CLARITY,URINE SLIGHTLY CLOUDY (Clear); COLOR,URINE YELLOW (Yellow); GLUCOSE, URINE NEGATIVE (Neg); KETONES,URINE NEGATIVE (Neg); LEUKOCYTE ESTERASE ,URINE NEGATIVE (Neg); NITRITES, URINE NEGATIVE (Neg); OCCULT BLOOD,URINE MODERATE (Neg); PROTEIN,URINE TRACE mg/dl (Neg); UROBILINOGEN,URINE 0.2 E.U/dL (0.2-1.0)
[2023-03-07 20:14] LABS: UA COLLECTION TYPE FOLEY CATH
[2023-03-07 20:15] LABS: MUCUS STRANDS FEW /LPF (Neg); SQUAMOUS EPITHELIAL CELL,UR FEW /LPF (FEW)
[2023-03-07 20:16] LABS: RENAL CELLS, URINE FEW /HPF; WBC,URINE 0-4 /HPF (0-4)
[2023-03-07 20:20] LABS: BACTERIA,URINE FEW /HPF (Neg)
[2023-03-07 20:21] LABS: AMORPHOUS URATES 1+
[2023-03-07] MEDS: insulin glargine (Lantus) pen - multi-dose SQ SCH (20:40)
[2023-03-07] MEDS: atorvastatin 10mg tablet OGT SCH (20:40)
[2023-03-07] MEDS ORDERED: VANCOMYCIN LEVEL IV ONE (23:30)
[2023-03-08] VITALS (53 sets, daily range): BP systolic 82–147; BP diastolic 37–56; PULSE 60–104; RESP 19–56; TEMP 99.7–100.4; O2SAT 91–100
[2023-03-08] MEDS: metoclopramide 5 mg/ml inj IV SCH ×3 (00:04→16:43)
[2023-03-08] MEDS: metroNIDAZOLE-Flagyl 500mg/NS 100 ML IV SCH ×3 (00:04→16:43)
[2023-03-08] MEDS: VANCOmycin 1250MG/NS 250ml Bag 250 ML IV SCH ×2 (00:30→12:15)
[2023-03-08] MEDS: albumin (Human) 5% 250ml 250 ML IV PRN (01:08)
[2023-03-08] MEDS: mineral oil/petrolatum ophthal oint EACHEYE SCH ×4 (02:00→19:28)
[2023-03-08 02:44] LABS: BASOPHILS % (AUTO) 0.2 % (0-1); EOSINOPHILS # (AUTO) 0.3 X10'3 (0-0.9); EOSINOPHILS % (AUTO) 3.5 % (0-6); HEMATOCRIT 22.6 % (42.0-52.0); HEMOGLOBIN 7.5 g/dl (14.0-17.9); LYMPHOCYTES # (AUTO) 0.6 X10'3 (1.1-4.8); MEAN CORPUSCULAR HEMOGLOBIN 28.7 PG (27.0-31.0); MEAN CORPUSCULAR HGB CONC 32.9 g/dL (33.0-36.5); MEAN CORPUSCULAR VOLUME 87.2 FL (78-98); MEAN PLATELET VOLUME 7.8 FL (7.4-10.4); MONOCYTES # (AUTO) 0.6 X10'3 (0-0.9); NEUTROPHILS # (AUTO) 6.2 X10'3 (1.8-7.7); NEUTROPHILS % (AUTO) 80.3 % (42-75); PLATELET COUNT 187 X10'3 (140-440); RED CELL DISTRIBUTION WIDTH 15.3 % (11.5-14.5); WHITE BLOOD COUNT 7.8 X10'3 (4.5-11.0)
[2023-03-08 02:54] LABS: ALANINE AMINOTRANSFERASE 11 U/L (12-78); ALBUMIN 2.6 G/DL (3.4-5.0); ALBUMIN/GLOBULIN RATIO 0.7 (1.1-1.5); ALKALINE PHOSPHATASE 39 IU/L (46-116); ANION GAP 7 (8-16); ASPARTATE AMINO TRANSFERASE 34 U/L (10-37); BILIRUBIN,TOTAL 0.6 MG/DL (0.1-1.0); BLOOD UREA NITROGEN 31 MG/DL (7-18); BUN/CREATININE RATIO 36.9 (10.0-20.0); CALCIUM 7.9 MG/DL (8.5-10.1); CHLORIDE 105 MMOL/L (99-107); CREATININE 0.84 MG/DL (0.60-1.10); GLUCOSE 120 MG/DL (70-104); MAGNESIUM 2.1 MG/DL (1.5-2.4); PHOSPHORUS 3.5 MG/DL (2.3-4.5); POTASSIUM 4.3 MMOL/L (3.5-5.1); SODIUM 136 MMOL/L (135-145); TOTAL CARBON DIOXIDE 23.9 MMOL/L (24-32); TOTAL PROTEIN 6.6 G/DL (6.4-8.2); eCRCL 71 ML/MIN; eGFR > 90 ML/MIN
[2023-03-08] MEDS: ipratropium/albuterol 3ml nebule NEB SCH ×4 (03:02→19:22)
[2023-03-08 03:13] LABS: ABG BASE EXCESS -0.8 mmol/L (-2.0-2.0); ABG HCO3 23.5 mmol/L (22.0-26.0); ABG OXYGEN SATURATION 96.9 % (94-97); ABG PCO2 (T) 36.5 mmHg (35.0-48.0); ABG PH (T) 7.425 (7.340-7.440); ABG PO2 (T) 92.9 mmHg (75.0-100.0); FCOHb 0.5 % (0.0-3.9); FHHb 3.1 % (0.0-5.0); FMetHb 0.3 % (0.0-1.5); FO2Hb 96.1 % (94-97); MODE VENT - P/C; PATIENT TEMPERATURE 36.9; PEEP 5 cm H2O; RESPIRATORY RATE 18 b/min; TOTAL HEMOGLOBIN 8.2 G/dl (14.0-17.9)
[2023-03-08] MEDS: FENTANYL-0.9 % NACL/PF 100 ML IV PRN (05:36)
[2023-03-08] MEDS: midazolam 100mg in NS 100ml 100 ML IV PRN (05:36)
[2023-03-08] MEDS: magnesium 2GM in 50ml NS 50 ML IV PRN (07:30)
[2023-03-08] MEDS: CefTRIAXone/D5W-Rocephin 1gm 50 ML IV SCH ×2 (07:44→19:29)
[2023-03-08] MEDS: pantoprazole 40MG/NS 100ML BAG 100 ML IV SCH ×2 (07:44→19:28)
[2023-03-08] MEDS: furosemide 20 MG/2 ML vial IV SCH ×3 (07:45→21:27)
[2023-03-08] MEDS: sennosides/docusate sodium tablet OGT SCH ×2 (07:45→19:29)
[2023-03-08] MEDS: potassium Cl 20mEq/100mL bag 100 ML IV PRN ×2 (07:45→09:19)
[2023-03-08] MEDS: aspirin 81mg tab.chew OGT SCH (07:45)
[2023-03-08] MEDS: clopidogrel 75mg tablet OGT SCH (07:45)
[2023-03-08] MEDS: PHENYLephrine 10mg/ml inj. 100 MG in normal saline 250ml IV soln 240 ML IV SCH (10:48)
[2023-03-08] MEDS: acetaminophen 1,000mg/100ml IV 100 ML IV PRN (16:50)
[2023-03-08] MEDS: enoxaparin 40mg/0.4ml syringe SUBCUT SCH (19:29)
[2023-03-08] MEDS: insulin glargine (Lantus) pen - multi-dose SQ SCH (21:00)
[2023-03-08] MEDS: atorvastatin 10mg tablet OGT SCH (21:26)
[2023-03-09] VITALS (44 sets, daily range): BP systolic 59–129; BP diastolic 37–65; PULSE 60–131; RESP 16–42; O2SAT 80–98
[2023-03-09] MEDS: VANCOMYCIN 1,500MG in normal saline IV soln 300 ML IV SCH ×2 (00:18→12:48)
[2023-03-09] MEDS: metroNIDAZOLE-Flagyl 500mg/NS 100 ML IV SCH ×3 (00:18→16:19)
[2023-03-09] MEDS: dexmedetomidin/NS 400mcg/100ml 100 ML IV SCH (00:18)
[2023-03-09] MEDS: metoclopramide 5 mg/ml inj IV SCH ×3 (00:18→16:19)
[2023-03-09] MEDS: mineral oil/petrolatum ophthal oint EACHEYE SCH ×4 (02:24→20:42)
[2023-03-09 02:44] LABS: LYMPHOCYTES # (AUTO) 0.8 X10'3 (1.1-4.8); MEAN CORPUSCULAR HGB CONC 32.9 g/dL (33.0-36.5); MEAN PLATELET VOLUME 8.2 FL (7.4-10.4)
[2023-03-09 02:48] LABS: BASOPHILS % (AUTO) 0.2 % (0-1); EOSINOPHILS # (AUTO) 0.5 X10'3 (0-0.9); EOSINOPHILS % (AUTO) 4.7 % (0-6); HEMATOCRIT 31.3 % (42.0-52.0); HEMOGLOBIN 10.3 g/dl (14.0-17.9); LYMPHOCYTES % (AUTO) 6.8 % (21-51); MEAN CORPUSCULAR HEMOGLOBIN 27.9 PG (27.0-31.0); MEAN CORPUSCULAR VOLUME 84.7 FL (78-98); MONOCYTES # (AUTO) 0.7 X10'3 (0-0.9); NEUTROPHILS # (AUTO) 9.4 X10'3 (1.8-7.7); NEUTROPHILS % (AUTO) 82.3 % (42-75); PLATELET COUNT 250 X10'3 (140-440); RED BLOOD COUNT 3.69 X10'6 (4.70-6.10); RED CELL DISTRIBUTION WIDTH 16.6 % (11.5-14.5); WHITE BLOOD COUNT 11.4 X10'3 (4.5-11.0)
[2023-03-09 02:58] LABS: ALANINE AMINOTRANSFERASE 15 U/L (12-78); ALBUMIN 2.2 G/DL (3.4-5.0); ALBUMIN/GLOBULIN RATIO 0.5 (1.1-1.5); ALKALINE PHOSPHATASE 55 IU/L (46-116); ANION GAP 7 (8-16); ASPARTATE AMINO TRANSFERASE 39 U/L (10-37); BILIRUBIN,TOTAL 0.5 MG/DL (0.1-1.0); BLOOD UREA NITROGEN 33 MG/DL (7-18); CHLORIDE 106 MMOL/L (99-107); CREATININE 0.75 MG/DL (0.60-1.10); MAGNESIUM 2.3 MG/DL (1.5-2.4); PHOSPHORUS 2.8 MG/DL (2.3-4.5); POTASSIUM 4.1 MMOL/L (3.5-5.1); SODIUM 138 MMOL/L (135-145); TOTAL CARBON DIOXIDE 24.7 MMOL/L (24-32); TOTAL PROTEIN 6.9 G/DL (6.4-8.2); eCRCL 80 ML/MIN; eGFR > 90 ML/MIN
[2023-03-09 02:59] LABS: GLUCOSE 151 MG/DL (70-104)
[2023-03-09] MEDS: ipratropium/albuterol 3ml nebule NEB SCH ×5 (03:08→23:27)
[2023-03-09 03:14] LABS: ABG BASE EXCESS -1.7 mmol/L (-2.0-2.0); ABG HCO3 23.5 mmol/L (22.0-26.0); ABG OXYGEN SATURATION 90.9 % (94-97); ABG PCO2 (T) 41.6 mmHg (35.0-48.0); ABG PH (T) 7.371 (7.340-7.440); ABG PO2 (T) 61.9 mmHg (75.0-100.0); FCOHb 0.8 % (0.0-3.9); FMetHb 0.3 % (0.0-1.5); FO2Hb 89.9 % (94-97); MODE VENT - P/C; PATIENT TEMPERATURE 37.1; PEEP 5 cm H2O; RESPIRATORY RATE 18 b/min; TOTAL HEMOGLOBIN 11.5 G/dl (14.0-17.9)
[2023-03-09] MEDS: acetaminophen 1,000mg/100ml IV 100 ML IV PRN ×2 (04:58→12:47)
[2023-03-09 05:32] LABS: TOTAL CELLS COUNTED 100
[2023-03-09 05:33] LABS: ANISOCYTOSIS 1+; ELLIPTOCYTES FEW; PLATELET ESTIMATE NORMAL; POLYCHROMASIA FEW
[2023-03-09] MEDS: potassium Cl 20mEq/100mL bag 100 ML IV PRN ×2 (08:48→09:55)
[2023-03-09] MEDS: magnesium 2GM in 50ml NS 50 ML IV PRN (08:48)
[2023-03-09] MEDS: fluconazole-Diflucan 200mg/NS 100 ML IV SCH (08:48)
[2023-03-09] MEDS: CefTRIAXone/D5W-Rocephin 1gm 50 ML IV SCH ×2 (08:48→20:41)
[2023-03-09] MEDS: clopidogrel 75mg tablet OGT SCH (08:51)
[2023-03-09] MEDS: furosemide 20 MG/2 ML vial IV SCH ×2 (08:51→12:48)
[2023-03-09] MEDS: aspirin 81mg tab.chew OGT SCH (08:51)
[2023-03-09] MEDS: pantoprazole 40MG/NS 100ML BAG 100 ML IV SCH ×2 (08:51→20:41)
[2023-03-09] MEDS: sennosides/docusate sodium tablet OGT SCH ×2 (08:51→20:00)
[2023-03-09 09:48] LABS: ABG BASE EXCESS -4.3 mmol/L (-2.0-2.0); ABG HCO3 21.7 mmol/L (22.0-26.0); ABG OXYGEN SATURATION 98.7 % (94-97); ABG PH (T) 7.297 (7.340-7.440); ABG PO2 (T) 152.7 mmHg (75.0-100.0); FCOHb 0.5 % (0.0-3.9); FHHb 1.3 % (0.0-5.0); FO2Hb 98.2 % (94-97); MODE VENT - P/C; PATIENT TEMPERATURE 38.4; PEEP 10 cm H2O; RESPIRATORY RATE 12 b/min; TIDAL VOLUME 550 mL; TOTAL HEMOGLOBIN 11.6 G/dl (14.0-17.9)
[2023-03-09] MEDS: midazolam 100mg in NS 100ml 100 ML IV PRN ×2 (11:32→19:34)
[2023-03-09] MEDS: CISatracurium besylate inj. 100 MG in normal saline 100ml IV soln 90 ML IV PRN ×2 (14:00→20:42)
[2023-03-09 14:35] LABS: ABG BASE EXCESS -9.7 mmol/L (-2.0-2.0); ABG HCO3 23.2 mmol/L (22.0-26.0); ABG OXYGEN SATURATION 93.3 % (94-97); ABG PCO2 (T) 110.9 mmHg (35.0-48.0); ABG PH (T) 6.958 (7.340-7.440); ABG PO2 (T) 113.4 mmHg (75.0-100.0); FCOHb 0.2 % (0.0-3.9); FHHb 6.7 % (0.0-5.0); FMetHb 0.5 % (0.0-1.5); FO2Hb 92.6 % (94-97); MODE VENT - P/C 25; PATIENT TEMPERATURE 39.8; PEEP 15 cm H2O; TIDAL VOLUME 256 mL; TOTAL HEMOGLOBIN 11.7 G/dl (14.0-17.9)
[2023-03-09] MEDS: acetylcysteine 200 MG/ml 4ml vial INH SCH ×2 (15:00→19:32)
[2023-03-09] MEDS ORDERED: albumin (Human) 5% 250ml 250 ML IV ONE ×3 (16:40→20:45)
[2023-03-09 16:41] LABS: ABG OXYGEN SATURATION 95.7 % (94-97); ABG PH (T) 7.031 (7.340-7.440); ABG PO2 (T) 110.6 mmHg (75.0-100.0); FCOHb 0.8 % (0.0-3.9); FHHb 4.3 % (0.0-5.0); FMetHb 0.2 % (0.0-1.5); FO2Hb 94.7 % (94-97); MODE VENT - AC; PATIENT TEMPERATURE 38.1; PEEP 10 cm H2O; RESPIRATORY RATE 32 b/min; TIDAL VOLUME 320 mL
[2023-03-09] MEDS ORDERED: sodium bicarbonate (8.4%) 1 mEq/ml syringe IV STA (16:48)
[2023-03-09] MEDS ORDERED: sodium bicarbonate (8.4%) 1 mEq/ml syringe ONE (16:54)
[2023-03-09 18:19] LABS: BASOPHILS % (AUTO) 0.1 % (0-1); EOSINOPHILS # (AUTO) 0.3 X10'3 (0-0.9); EOSINOPHILS % (AUTO) 1.2 % (0-6); HEMATOCRIT 32.1 % (42.0-52.0); HEMOGLOBIN 10.1 g/dl (14.0-17.9); LYMPHOCYTES # (AUTO) 0.7 X10'3 (1.1-4.8); LYMPHOCYTES % (AUTO) 2.8 % (21-51); MEAN CORPUSCULAR HEMOGLOBIN 27.2 PG (27.0-31.0); MEAN CORPUSCULAR HGB CONC 31.5 g/dL (33.0-36.5); MEAN CORPUSCULAR VOLUME 86.5 FL (78-98); MEAN PLATELET VOLUME 8.1 FL (7.4-10.4); MONOCYTES # (AUTO) 1.3 X10'3 (0-0.9); MONOCYTES % (AUTO) 5.3 % (2-12); NEUTROPHILS # (AUTO) 22.9 X10'3 (1.8-7.7); NEUTROPHILS % (AUTO) 90.6 % (42-75); PLATELET COUNT 279 X10'3 (140-440); RED BLOOD COUNT 3.71 X10'6 (4.70-6.10); RED CELL DISTRIBUTION WIDTH 16.8 % (11.5-14.5)
[2023-03-09 18:21] LABS: WHITE BLOOD COUNT 25.3 X10'3 (4.5-11.0)
[2023-03-09 18:31] LABS: HIV ANTIBODY 1&2 RAPID PRELIM REACTIVE (Neg)
[2023-03-09 18:34] LABS: ALBUMIN 2.3 G/DL (3.4-5.0); ANION GAP 5 (8-16); BLOOD UREA NITROGEN 37 MG/DL (7-18); BUN/CREATININE RATIO 32.2 (10.0-20.0); CALCIUM 7.9 MG/DL (8.5-10.1); CHLORIDE 107 MMOL/L (99-107); CREATININE 1.15 MG/DL (0.60-1.10); LIPASE 11 U/L (16-77); MAGNESIUM 3.1 MG/DL (1.5-2.4); PHOSPHORUS 5.4 MG/DL (2.3-4.5); POTASSIUM 5.2 MMOL/L (3.5-5.1); SODIUM 141 MMOL/L (135-145); TOTAL CARBON DIOXIDE 29.1 MMOL/L (24-32); eCRCL 52 ML/MIN; eGFR 63 ML/MIN
[2023-03-09 18:40] LABS: GLUCOSE 137 MG/DL (70-104)
[2023-03-09 18:44] LABS: TOTAL CELLS COUNTED 100
[2023-03-09 18:45] LABS: ANISOCYTOSIS 1+; BURR CELLS FEW; PLATELET ESTIMATE NORMAL; POLYCHROMASIA FEW; TOXIC GRANULATION 1+
[2023-03-09] MEDS: VASOPRESSIN IV SCH (18:59)
[2023-03-09] MEDS: NORMAL SALINE IV SCH (18:59)
[2023-03-09 19:24] LABS: ABG BASE EXCESS -5.5 mmol/L (-2.0-2.0); ABG HCO3 24.7 mmol/L (22.0-26.0); ABG OXYGEN SATURATION 97.6 % (94-97); ABG PCO2 (T) 73.4 mmHg (35.0-48.0); ABG PH (T) 7.141 (7.340-7.440); ABG PO2 (T) 105.4 mmHg (75.0-100.0); FCOHb 0.7 % (0.0-3.9); FHHb 2.4 % (0.0-5.0); FO2Hb 96.9 % (94-97); MODE ac pc 25; PATIENT TEMPERATURE 36.4; RESPIRATORY RATE 32 b/min; TOTAL HEMOGLOBIN 11.4 G/dl (14.0-17.9)
[2023-03-09] MEDS: FENTANYL-0.9 % NACL/PF 100 ML IV PRN (19:35)
[2023-03-09] MEDS: insulin glargine (Lantus) pen - multi-dose SQ SCH (21:00)
[2023-03-09] MEDS: atorvastatin 10mg tablet OGT SCH (21:00)
[2023-03-09] MEDS: NORepinephrine 8mg/ 250ml NS 250 ML IV SCH (21:14)
[2023-03-10] VITALS (48 sets, daily range): BP systolic 61–140; BP diastolic 38–68; PULSE 66–122; RESP 32–42; O2SAT 89–98
[2023-03-10] MEDS: VANCOMYCIN 1,500MG in normal saline IV soln 300 ML IV SCH ×2 (00:04→12:14)
[2023-03-10] MEDS: metroNIDAZOLE-Flagyl 500mg/NS 100 ML IV SCH ×3 (00:04→16:13)
[2023-03-10] MEDS: CISatracurium besylate inj. 100 MG in normal saline 100ml IV soln 90 ML IV PRN ×6 (00:05→22:03)
[2023-03-10 01:51] LABS: BASOPHILS # (AUTO) 0.1 X10'3 (0-0.2); BASOPHILS % (AUTO) 0.2 % (0-1); EOSINOPHILS % (AUTO) 0.1 % (0-6); HEMATOCRIT 32.6 % (42.0-52.0); LYMPHOCYTES # (AUTO) 1.2 X10'3 (1.1-4.8); LYMPHOCYTES % (AUTO) 4.5 % (21-51); MEAN CORPUSCULAR HEMOGLOBIN 27.2 PG (27.0-31.0); MEAN CORPUSCULAR HGB CONC 30.5 g/dL (33.0-36.5); MEAN CORPUSCULAR VOLUME 89.2 FL (78-98); MEAN PLATELET VOLUME 8.4 FL (7.4-10.4); MONOCYTES # (AUTO) 1.6 X10'3 (0-0.9); MONOCYTES % (AUTO) 5.8 % (2-12); NEUTROPHILS # (AUTO) 24.9 X10'3 (1.8-7.7); NEUTROPHILS % (AUTO) 89.4 % (42-75); PLATELET COUNT 244 X10'3 (140-440); RED BLOOD COUNT 3.66 X10'6 (4.70-6.10); RED CELL DISTRIBUTION WIDTH 17.7 % (11.5-14.5)
[2023-03-10 02:01] LABS: WHITE BLOOD COUNT 27.9 X10'3 (4.5-11.0)
[2023-03-10 02:06] LABS: ALANINE AMINOTRANSFERASE 40 U/L (12-78); ALBUMIN 2.6 G/DL (3.4-5.0); ALBUMIN/GLOBULIN RATIO 0.6 (1.1-1.5); ALKALINE PHOSPHATASE 109 IU/L (46-116); ANION GAP 12 (8-16); ASPARTATE AMINO TRANSFERASE 164 U/L (10-37); BILIRUBIN,TOTAL 1.1 MG/DL (0.1-1.0); BLOOD UREA NITROGEN 42 MG/DL (7-18); BUN/CREATININE RATIO 26.9 (10.0-20.0); CALCIUM 7.9 MG/DL (8.5-10.1); CHLORIDE 107 MMOL/L (99-107); CREATININE 1.56 MG/DL (0.60-1.10); LACTATE DEHYDROGENASE 559 U/L (85-227); MAGNESIUM 3.3 MG/DL (1.5-2.4); PHOSPHORUS 7.3 MG/DL (2.3-4.5); POTASSIUM 5.9 MMOL/L (3.5-5.1); SODIUM 140 MMOL/L (135-145); TOTAL CARBON DIOXIDE 20.7 MMOL/L (24-32); TOTAL PROTEIN 6.9 G/DL (6.4-8.2); TRIGLYCERIDES 80 MG/DL (20-135); eCRCL 38 ML/MIN; eGFR 45 ML/MIN
[2023-03-10 02:12] LABS: GLUCOSE 113 MG/DL (70-104)
[2023-03-10] MEDS: mineral oil/petrolatum ophthal oint EACHEYE SCH ×4 (02:22→19:53)
[2023-03-10 02:52] LABS: ANISOCYTOSIS 1+; BURR CELLS FEW; ELLIPTOCYTES FEW; NUCLEATED RED BLOOD CELLS 1 /100WBC (0-0); PLATELET ESTIMATE NORMAL; POLYCHROMASIA FEW; TOTAL CELLS COUNTED 100
[2023-03-10 03:07] LABS: ABG BASE EXCESS -12.9 mmol/L (-2.0-2.0); ABG HCO3 17.3 mmol/L (22.0-26.0); ABG OXYGEN SATURATION 98.5 % (94-97); ABG PCO2 (T) 59.3 mmHg (35.0-48.0); ABG PH (T) 7.078 (7.340-7.440); ABG PO2 (T) 140.7 mmHg (75.0-100.0); FCOHb 0.4 % (0.0-3.9); FHHb 1.5 % (0.0-5.0); FO2Hb 98.1 % (94-97); MODE ac pc 25; PATIENT TEMPERATURE 36.2; PEEP 10 cm H2O; RESPIRATORY RATE 32 b/min
[2023-03-10] MEDS: ipratropium/albuterol 3ml nebule NEB SCH ×6 (03:08→23:25)
[2023-03-10] MEDS: acetylcysteine 200 MG/ml 4ml vial INH SCH ×4 (03:08→19:25)
[2023-03-10] MEDS ORDERED: sodium bicarbonate (8.4%) inj. 150 MEQ in dextrose 5%-water 1,000 ML IV SCH (03:10)
[2023-03-10] MEDS ORDERED: sodium bicarbonate (8.4%) 1 mEq/ml syringe IV ONE ×2 (03:10→05:30)
[2023-03-10] MEDS: VASOPRESSIN IV SCH ×2 (03:41→20:41)
[2023-03-10] MEDS: NORMAL SALINE IV SCH ×2 (03:41→20:41)
[2023-03-10] MEDS: FENTANYL-0.9 % NACL/PF 100 ML IV PRN ×2 (05:07→15:57)
[2023-03-10] MEDS: PHENYLephrine 10mg/ml inj. 100 MG in normal saline 250ml IV soln 240 ML IV SCH ×2 (05:11→14:47)
[2023-03-10 05:16] LABS: ABG BASE EXCESS -12.7 mmol/L (-2.0-2.0); ABG HCO3 16.3 mmol/L (22.0-26.0); ABG PH (T) 7.129 (7.340-7.440); ABG PO2 (T) 130.7 mmHg (75.0-100.0); FCOHb 0.1 % (0.0-3.9); FMetHb 0.4 % (0.0-1.5); FO2Hb 97.5 % (94-97); MODE ac pc 25; PATIENT TEMPERATURE 36.4; PEEP 10 cm H2O; RESPIRATORY RATE 32 b/min; TOTAL HEMOGLOBIN 11.1 G/dl (14.0-17.9)
[2023-03-10] MEDS ORDERED: amiodarone 150mg/dext, iso-os 100 ML IV ONE (06:15)
[2023-03-10 06:57] LABS: ABG BASE EXCESS -9.8 mmol/L (-2.0-2.0); ABG HCO3 18.4 mmol/L (22.0-26.0); ABG OXYGEN SATURATION 96.6 % (94-97); ABG PCO2 (T) 50.8 mmHg (35.0-48.0); ABG PH (T) 7.178 (7.340-7.440); ABG PO2 (T) 97.2 mmHg (75.0-100.0); FCOHb 0.2 % (0.0-3.9); FHHb 3.4 % (0.0-5.0); FMetHb 0.2 % (0.0-1.5); FO2Hb 96.2 % (94-97); MODE VENT - P/C; PATIENT TEMPERATURE 37.1; PEEP 10 cm H2O; RESPIRATORY RATE 32 b/min; TIDAL VOLUME 350 mL
[2023-03-10] MEDS: amiodarone/D5 360MG/200ML BAG 200 ML IV SCH ×3 (07:03→16:59)
[2023-03-10] MEDS ORDERED: dextrose 50%-water 50ml dispensing syringe IV STA (07:10)
[2023-03-10] MEDS ORDERED: CALCIUM GLUC 1gm/50ml NACL,iso 50 ML IV STA (07:10)
[2023-03-10] MEDS ORDERED: insulin regular, human 10 units/0.1 ml syringe IV STA (07:10)
[2023-03-10] MEDS ORDERED: sodium bicarbonate (8.4%) 1 mEq/ml syringe IV STA ×2 (07:26→10:39)
[2023-03-10] MEDS: normal saline 1000ml 1,000 ML IV SCH (07:30)
[2023-03-10] MEDS: CefTRIAXone/D5W-Rocephin 1gm 50 ML IV SCH ×2 (08:08→19:53)
[2023-03-10] MEDS: fluconazole-Diflucan 200mg/NS 100 ML IV SCH (08:08)
[2023-03-10] MEDS: pantoprazole 40MG/NS 100ML BAG 100 ML IV SCH ×2 (08:08→19:53)
[2023-03-10] MEDS: aspirin 81mg tab.chew OGT SCH (08:09)
[2023-03-10] MEDS: metoclopramide 5 mg/ml inj IV SCH ×3 (08:09→16:13)
[2023-03-10] MEDS: sennosides/docusate sodium tablet OGT SCH ×2 (08:09→19:44)
[2023-03-10] MEDS: NORepinephrine 8mg/ 250ml NS 250 ML IV SCH ×2 (09:10→17:33)
[2023-03-10 09:34] LABS: BASOPHILS % (AUTO) 0.1 % (0-1); EOSINOPHILS % (AUTO) 0.1 % (0-6); HEMATOCRIT 29.9 % (42.0-52.0); HEMOGLOBIN 9.4 g/dl (14.0-17.9); LYMPHOCYTES # (AUTO) 0.8 X10'3 (1.1-4.8); LYMPHOCYTES % (AUTO) 3.7 % (21-51); MEAN CORPUSCULAR HEMOGLOBIN 27.5 PG (27.0-31.0); MEAN CORPUSCULAR HGB CONC 31.4 g/dL (33.0-36.5); MEAN CORPUSCULAR VOLUME 87.5 FL (78-98); MEAN PLATELET VOLUME 8.4 FL (7.4-10.4); MONOCYTES # (AUTO) 1.3 X10'3 (0-0.9); MONOCYTES % (AUTO) 5.7 % (2-12); NEUTROPHILS # (AUTO) 20.1 X10'3 (1.8-7.7); NEUTROPHILS % (AUTO) 90.4 % (42-75); PLATELET COUNT 196 X10'3 (140-440); RED BLOOD COUNT 3.42 X10'6 (4.70-6.10); WHITE BLOOD COUNT 22.3 X10'3 (4.5-11.0)
[2023-03-10 09:41] LABS: ALANINE AMINOTRANSFERASE 198 U/L (12-78); ALBUMIN 2.2 G/DL (3.4-5.0); ALBUMIN/GLOBULIN RATIO 0.6 (1.1-1.5); ALKALINE PHOSPHATASE 127 IU/L (46-116); ANION GAP 17 (8-16); ASPARTATE AMINO TRANSFERASE 830 U/L (10-37); BILIRUBIN,TOTAL 1.2 MG/DL (0.1-1.0); BLOOD UREA NITROGEN 48 MG/DL (7-18); BUN/CREATININE RATIO 25.3 (10.0-20.0); CALCIUM 7.6 MG/DL (8.5-10.1); CHLORIDE 104 MMOL/L (99-107); POTASSIUM 5.1 MMOL/L (3.5-5.1); SODIUM 141 MMOL/L (135-145); TOTAL CARBON DIOXIDE 20.3 MMOL/L (24-32); TOTAL PROTEIN 5.8 G/DL (6.4-8.2); eCRCL 32 ML/MIN; eGFR 36 ML/MIN
[2023-03-10 09:44] LABS: GLUCOSE 217 MG/DL (70-104)
[2023-03-10 10:07] LABS: ABG BASE EXCESS -7.8 mmol/L (-2.0-2.0); ABG HCO3 19.3 mmol/L (22.0-26.0); ABG OXYGEN SATURATION 97.3 % (94-97); ABG PCO2 (T) 46.3 mmHg (35.0-48.0); ABG PH (T) 7.238 (7.340-7.440); ABG PO2 (T) 104.1 mmHg (75.0-100.0); FCOHb 0.3 % (0.0-3.9); FHHb 2.7 % (0.0-5.0); FMetHb 0.3 % (0.0-1.5); FO2Hb 96.7 % (94-97); MODE VENT - P/C; PATIENT TEMPERATURE 36.9; PEEP 10 cm H2O; RESPIRATORY RATE 32 b/min; TIDAL VOLUME 480 mL; TOTAL HEMOGLOBIN 10.3 G/dl (14.0-17.9)
[2023-03-10 11:16] LABS: TOTAL CELLS COUNTED 100
[2023-03-10 11:17] LABS: ANISOCYTOSIS 1+; BURR CELLS FEW; ELLIPTOCYTES 1+; PLATELET ESTIMATE NORMAL; POLYCHROMASIA 1+
[2023-03-10] MEDS ORDERED: VANCOMYCIN LEVEL IV ONE (11:30)
[2023-03-10] MEDS: furosemide 10 MG/1 ML 10ml inj IV SCH ×3 (12:15→19:53)
[2023-03-10] MEDS: sulfamethoxazole/trimethoprim DS (800/160mg) tablet PO SCH ×2 (13:06→20:07)
[2023-03-10 13:44] LABS: ABG BASE EXCESS -3.9 mmol/L (-2.0-2.0); ABG HCO3 21.8 mmol/L (22.0-26.0); ABG PCO2 (T) 42.1 mmHg (35.0-48.0); ABG PH (T) 7.331 (7.340-7.440); ABG PO2 (T) 168.3 mmHg (75.0-100.0); FMetHb 0.3 % (0.0-1.5); FO2Hb 98.7 % (94-97); PATIENT TEMPERATURE 36.9; PEEP 10 cm H2O; RESPIRATORY RATE 32 b/min; TOTAL HEMOGLOBIN 10.4 G/dl (14.0-17.9)
[2023-03-10 13:48] LABS: BILIRUBIN,URINE SMALL (Neg); CLARITY,URINE CLOUDY (Clear); GLUCOSE, URINE NEGATIVE (Neg); KETONES,URINE NEGATIVE (Neg); LEUKOCYTE ESTERASE ,URINE NEGATIVE (Neg); NITRITES, URINE NEGATIVE (Neg); OCCULT BLOOD,URINE NEGATIVE (Neg); PROTEIN,URINE TRACE mg/dl (Neg)
[2023-03-10 13:59] LABS: COLOR,URINE DARK YELLOW (Yellow); UA COLLECTION TYPE NON-SPECIFIED
[2023-03-10 14:01] LABS: AMORPHOUS URATES 2+; BACTERIA,URINE FEW /HPF (Neg); FINE GRANULAR CAST 0-3 /LPF (NEGATIVE); MUCUS STRANDS FEW /LPF (Neg); RENAL CELLS, URINE FEW /HPF; SQUAMOUS EPITHELIAL CELL,UR NONE SEEN /LPF (FEW); WBC,URINE 0-4 /HPF (0-4)
[2023-03-10 14:02] LABS: COARSE GRANULAR CAST 0-3 /LPF (NEGATIVE); HYALINE CASTS 0-3 /LPF (NEGATIVE)
[2023-03-10 14:18] LABS: BASOPHILS % (AUTO) 0 % (0-1); EOSINOPHILS # (AUTO) 0.1 X10'3 (0-0.9); EOSINOPHILS % (AUTO) 0.5 % (0-6); HEMATOCRIT 30.1 % (42.0-52.0); HEMOGLOBIN 9.6 g/dl (14.0-17.9); LYMPHOCYTES # (AUTO) 0.9 X10'3 (1.1-4.8); LYMPHOCYTES % (AUTO) 4.4 % (21-51); MEAN CORPUSCULAR HEMOGLOBIN 27.5 PG (27.0-31.0); MEAN CORPUSCULAR HGB CONC 31.8 g/dL (33.0-36.5); MEAN CORPUSCULAR VOLUME 86.4 FL (78-98); MEAN PLATELET VOLUME 8.9 FL (7.4-10.4); MONOCYTES # (AUTO) 1.2 X10'3 (0-0.9); MONOCYTES % (AUTO) 5.8 % (2-12); NEUTROPHILS # (AUTO) 19.1 X10'3 (1.8-7.7); NEUTROPHILS % (AUTO) 89.3 % (42-75); PLATELET COUNT 193 X10'3 (140-440); RED BLOOD COUNT 3.48 X10'6 (4.70-6.10); RED CELL DISTRIBUTION WIDTH 16.5 % (11.5-14.5); WHITE BLOOD COUNT 21.4 X10'3 (4.5-11.0)
[2023-03-10 14:22] LABS: TOTAL PROTEIN,URINE RANDOM 125.4 MG/DL
[2023-03-10 14:39] LABS: ALANINE AMINOTRANSFERASE 248 U/L (12-78); ALBUMIN 2.1 G/DL (3.4-5.0); ALBUMIN/GLOBULIN RATIO 0.5 (1.1-1.5); ALKALINE PHOSPHATASE 119 IU/L (46-116); ANION GAP 16 (8-16); ASPARTATE AMINO TRANSFERASE 993 U/L (10-37); BILIRUBIN,TOTAL 1.2 MG/DL (0.1-1.0); BLOOD UREA NITROGEN 50 MG/DL (7-18); BUN/CREATININE RATIO 24.9 (10.0-20.0); CALCIUM 7.1 MG/DL (8.5-10.1); CHLORIDE 105 MMOL/L (99-107); CREATININE 2.01 MG/DL (0.60-1.10); GLUCOSE 187 MG/DL (70-104); MAGNESIUM 2.8 MG/DL (1.5-2.4); PHOSPHORUS 6.3 MG/DL (2.3-4.5); SODIUM 146 MMOL/L (135-145); TOTAL CARBON DIOXIDE 25.5 MMOL/L (24-32); eCRCL 30 ML/MIN; eGFR 33 ML/MIN
[2023-03-10 14:39] LABS: UA EOSINOPHILS NO EOS /HPF
[2023-03-10] MEDS: atorvastatin 10mg tablet OGT SCH (20:07)
[2023-03-10] MEDS: insulin regular, human U-100 3ml vial - multi-dose SQ SCH (20:28)
[2023-03-10] MEDS: insulin glargine (Lantus) pen - multi-dose SQ SCH (20:29)
[2023-03-10] MEDS: midazolam 100mg in NS 100ml 100 ML IV PRN (20:41)
[2023-03-10 21:22] LABS: ALANINE AMINOTRANSFERASE 401 U/L (12-78); ALBUMIN 2.1 G/DL (3.4-5.0); ALBUMIN/GLOBULIN RATIO 0.6 (1.1-1.5); ALKALINE PHOSPHATASE 125 IU/L (46-116); ANION GAP 10 (8-16); BILIRUBIN,TOTAL 0.9 MG/DL (0.1-1.0); BLOOD UREA NITROGEN 53 MG/DL (7-18); BUN/CREATININE RATIO 26.1 (10.0-20.0); CHLORIDE 107 MMOL/L (99-107); CREATININE 2.03 MG/DL (0.60-1.10); GLUCOSE 190 MG/DL (70-104); MAGNESIUM 2.8 MG/DL (1.5-2.4); PHOSPHORUS 5.7 MG/DL (2.3-4.5); POTASSIUM 4.7 MMOL/L (3.5-5.1); SODIUM 145 MMOL/L (135-145); TOTAL CARBON DIOXIDE 27.7 MMOL/L (24-32); TOTAL PROTEIN 5.9 G/DL (6.4-8.2); eCRCL 30 ML/MIN; eGFR 33 ML/MIN
[2023-03-10 21:31] LABS: ASPARTATE AMINO TRANSFERASE 1444 U/L (10-37)
[2023-03-11] VITALS (49 sets, daily range): BP systolic 78–120; BP diastolic 42–75; PULSE 71–104; RESP 25–47; O2SAT 90–98
[2023-03-11] MEDS: metoclopramide 5 mg/ml inj IV SCH ×3 (00:21→16:08)
[2023-03-11] MEDS: amiodarone/D5 360MG/200ML BAG 200 ML IV SCH ×5 (00:22→23:03)
[2023-03-11] MEDS: FENTANYL-0.9 % NACL/PF 100 ML IV PRN ×4 (00:22→21:37)
[2023-03-11] MEDS: metroNIDAZOLE-Flagyl 500mg/NS 100 ML IV SCH ×2 (00:22→08:14)
[2023-03-11 01:11] LABS: ABG BASE EXCESS 2.3 mmol/L (-2.0-2.0); ABG HCO3 27.1 mmol/L (22.0-26.0); ABG OXYGEN SATURATION 94.3 % (94-97); ABG PCO2 (T) 41.6 mmHg (35.0-48.0); ABG PH (T) 7.429 (7.340-7.440); FCOHb 0.1 % (0.0-3.9); FHHb 5.7 % (0.0-5.0); FMetHb 0.3 % (0.0-1.5); FO2Hb 93.9 % (94-97); MODE ac pc 25; PATIENT TEMPERATURE 36.4; PEEP 10 cm H2O; RESPIRATORY RATE 32 b/min; TOTAL HEMOGLOBIN 10.5 G/dl (14.0-17.9)
[2023-03-11] MEDS: mineral oil/petrolatum ophthal oint EACHEYE SCH ×4 (01:36→20:18)
[2023-03-11] MEDS: furosemide 10 MG/1 ML 10ml inj IV SCH ×4 (01:55→20:18)
[2023-03-11] MEDS: NORepinephrine 8mg/ 250ml NS 250 ML IV SCH ×3 (01:55→14:01)
[2023-03-11] MEDS: CISatracurium besylate inj. 100 MG in normal saline 100ml IV soln 90 ML IV PRN ×6 (01:56→19:29)
[2023-03-11] MEDS: insulin regular, human U-100 3ml vial - multi-dose SQ SCH ×4 (02:29→20:49)
[2023-03-11 02:45] LABS: BASOPHILS % (AUTO) 0 % (0-1); EOSINOPHILS # (AUTO) 0.1 X10'3 (0-0.9); EOSINOPHILS % (AUTO) 0.7 % (0-6); LYMPHOCYTES # (AUTO) 0.4 X10'3 (1.1-4.8); LYMPHOCYTES % (AUTO) 2.5 % (21-51); MEAN CORPUSCULAR HEMOGLOBIN 27.4 PG (27.0-31.0); MEAN CORPUSCULAR HGB CONC 32.3 g/dL (33.0-36.5); MEAN CORPUSCULAR VOLUME 84.7 FL (78-98); MEAN PLATELET VOLUME 8.5 FL (7.4-10.4); MONOCYTES # (AUTO) 0.3 X10'3 (0-0.9); NEUTROPHILS # (AUTO) 14.3 X10'3 (1.8-7.7); NEUTROPHILS % (AUTO) 94.8 % (42-75); PLATELET COUNT 161 X10'3 (140-440); RED BLOOD COUNT 3.31 X10'6 (4.70-6.10); RED CELL DISTRIBUTION WIDTH 16.4 % (11.5-14.5); WHITE BLOOD COUNT 15.1 X10'3 (4.5-11.0)
[2023-03-11] MEDS: normal saline 1000ml 1,000 ML IV SCH (02:58)
[2023-03-11] MEDS: acetylcysteine 200 MG/ml 4ml vial INH SCH ×4 (03:07→19:06)
[2023-03-11] MEDS: ipratropium/albuterol 3ml nebule NEB SCH ×6 (03:08→23:00)
[2023-03-11 03:20] LABS: ALANINE AMINOTRANSFERASE 616 U/L (12-78); ALBUMIN 1.9 G/DL (3.4-5.0); ALBUMIN/GLOBULIN RATIO 0.5 (1.1-1.5); ALKALINE PHOSPHATASE 126 IU/L (46-116); ANION GAP 9 (8-16); BILIRUBIN,TOTAL 0.8 MG/DL (0.1-1.0); BLOOD UREA NITROGEN 59 MG/DL (7-18); BUN/CREATININE RATIO 26.9 (10.0-20.0); CHLORIDE 107 MMOL/L (99-107); CREATININE 2.19 MG/DL (0.60-1.10); GLUCOSE 202 MG/DL (70-104); MAGNESIUM 2.7 MG/DL (1.5-2.4); POTASSIUM 4.3 MMOL/L (3.5-5.1); SODIUM 146 MMOL/L (135-145); TOTAL CARBON DIOXIDE 30.1 MMOL/L (24-32); TOTAL PROTEIN 5.8 G/DL (6.4-8.2); eCRCL 27 ML/MIN; eGFR 30 ML/MIN
[2023-03-11 03:47] LABS: ASPARTATE AMINO TRANSFERASE 2323 U/L (10-37)
[2023-03-11] MEDS: sulfamethoxazole/trimethoprim DS (800/160mg) tablet PO SCH (04:37)
[2023-03-11] MEDS: aspirin 81mg tab.chew OGT SCH (07:41)
[2023-03-11] MEDS: CefTRIAXone/D5W-Rocephin 1gm 50 ML IV SCH (07:41)
[2023-03-11] MEDS: pantoprazole 40MG/NS 100ML BAG 100 ML IV SCH ×2 (07:41→20:19)
[2023-03-11] MEDS: sennosides/docusate sodium tablet OGT SCH ×2 (08:00→19:59)
[2023-03-11] MEDS: fluconazole-Diflucan 200mg/NS 100 ML IV SCH (08:15)
[2023-03-11] MEDS ORDERED: VANCOMYCIN LEVEL IV ONE (11:00)
[2023-03-11] MEDS ORDERED: sulfamethoxazole/trimethoprim DS (800/160mg) tablet PO SCH (14:00)
[2023-03-11] MEDS ORDERED: sulfamethoxazole/trimethoprim 800/160mg per 20ml oral susp PO SCH (14:00)
[2023-03-11] MEDS: sulfamethoxazole/trimethoprim 800/160mg per 20ml oral susp OGT SCH ×2 (15:08→21:41)
[2023-03-11] MEDS: midazolam 100mg in NS 100ml 100 ML IV PRN (15:09)
[2023-03-11] MEDS ORDERED: CISatracurium besylate inj. 200 MG in normal saline 250ml IV soln 180 ML IV PRN ×2 (17:55→20:00)
[2023-03-11] MEDS: NORepinephrine inj. 32 MG in normal saline 250ml IV soln 218 ML IV SCH (19:29)
[2023-03-11] MEDS ORDERED: amiodarone 150mg/dext, iso-os 100 ML IV ONE (20:10)
[2023-03-11] MEDS: heparin, porcine 5000 units/ml vial SQ SCH (20:19)
[2023-03-11] MEDS: atorvastatin 10mg tablet OGT SCH (20:20)
[2023-03-11] MEDS: insulin glargine (Lantus) pen - multi-dose SQ SCH (20:50)
[2023-03-11 21:03] LABS: ALBUMIN 1.7 G/DL (3.4-5.0); ALBUMIN/GLOBULIN RATIO 0.4 (1.1-1.5); ALKALINE PHOSPHATASE 287 IU/L (46-116); ANION GAP 9 (8-16); BILIRUBIN,TOTAL 0.8 MG/DL (0.1-1.0); BLOOD UREA NITROGEN 69 MG/DL (7-18); BUN/CREATININE RATIO 25.7 (10.0-20.0); CALCIUM 6.6 MG/DL (8.5-10.1); CHLORIDE 106 MMOL/L (99-107); CREATININE 2.69 MG/DL (0.60-1.10); GLUCOSE 169 MG/DL (70-104); MAGNESIUM 2.7 MG/DL (1.5-2.4); POTASSIUM 4.4 MMOL/L (3.5-5.1); SODIUM 143 MMOL/L (135-145); TOTAL CARBON DIOXIDE 27.7 MMOL/L (24-32); TOTAL PROTEIN 5.5 G/DL (6.4-8.2); eCRCL 22 ML/MIN; eGFR 24 ML/MIN
[2023-03-11 21:33] LABS: ALANINE AMINOTRANSFERASE 2712 U/L (12-78)
[2023-03-11 21:34] LABS: ASPARTATE AMINO TRANSFERASE > 7000 U/L (10-37)
[2023-03-12] VITALS (45 sets, daily range): BP systolic 84–114; BP diastolic 43–61; PULSE 72–100; RESP 30–39; O2SAT 89–96
[2023-03-12] MEDS: VASOPRESSIN IV SCH ×2 (00:04→23:24)
[2023-03-12] MEDS: NORMAL SALINE IV SCH ×2 (00:04→23:24)
[2023-03-12] MEDS: metoclopramide 5 mg/ml inj IV SCH ×4 (00:22→23:55)
[2023-03-12] MEDS: mineral oil/petrolatum ophthal oint EACHEYE SCH ×4 (01:52→20:34)
[2023-03-12] MEDS: insulin regular, human U-100 3ml vial - multi-dose SQ SCH ×4 (01:53→20:50)
[2023-03-12] MEDS: furosemide 10 MG/1 ML 10ml inj IV SCH ×2 (01:57→07:50)
[2023-03-12 02:03] LABS: BASOPHILS # (AUTO) 0.1 X10'3 (0-0.2); BASOPHILS % (AUTO) 0.6 % (0-1); EOSINOPHILS # (AUTO) 0.2 X10'3 (0-0.9); EOSINOPHILS % (AUTO) 2.1 % (0-6); HEMATOCRIT 26.5 % (42.0-52.0); HEMOGLOBIN 8.7 g/dl (14.0-17.9); LYMPHOCYTES # (AUTO) 0.3 X10'3 (1.1-4.8); LYMPHOCYTES % (AUTO) 3.5 % (21-51); MEAN CORPUSCULAR VOLUME 84.9 FL (78-98); MEAN PLATELET VOLUME 8.7 FL (7.4-10.4); MONOCYTES # (AUTO) 0.2 X10'3 (0-0.9); MONOCYTES % (AUTO) 1.6 % (2-12); NEUTROPHILS # (AUTO) 9.1 X10'3 (1.8-7.7); NEUTROPHILS % (AUTO) 92.2 % (42-75); PLATELET COUNT 112 X10'3 (140-440); RED BLOOD COUNT 3.12 X10'6 (4.70-6.10); RED CELL DISTRIBUTION WIDTH 16.8 % (11.5-14.5); WHITE BLOOD COUNT 9.8 X10'3 (4.5-11.0)
[2023-03-12 02:25] LABS: ALBUMIN 1.8 G/DL (3.4-5.0); ALBUMIN/GLOBULIN RATIO 0.5 (1.1-1.5); ALKALINE PHOSPHATASE 309 IU/L (46-116); ANION GAP 8 (8-16); BILIRUBIN,TOTAL 0.9 MG/DL (0.1-1.0); BLOOD UREA NITROGEN 69 MG/DL (7-18); BUN/CREATININE RATIO 25.4 (10.0-20.0); CALCIUM 6.6 MG/DL (8.5-10.1); CHLORIDE 107 MMOL/L (99-107); CREATININE 2.72 MG/DL (0.60-1.10); GLUCOSE 133 MG/DL (70-104); MAGNESIUM 2.6 MG/DL (1.5-2.4); PHOSPHORUS 4.7 MG/DL (2.3-4.5); POTASSIUM 4.2 MMOL/L (3.5-5.1); SODIUM 142 MMOL/L (135-145); TOTAL CARBON DIOXIDE 27.5 MMOL/L (24-32); TOTAL PROTEIN 5.7 G/DL (6.4-8.2); eCRCL 22 ML/MIN; eGFR 23 ML/MIN
[2023-03-12 03:08] LABS: ABG BASE EXCESS 0.8 mmol/L (-2.0-2.0); ABG HCO3 25.4 mmol/L (22.0-26.0); ABG OXYGEN SATURATION 93.7 % (94-97); ABG PCO2 (T) 40.9 mmHg (35.0-48.0); ABG PH (T) 7.412 (7.340-7.440); ABG PO2 (T) 73.6 mmHg (75.0-100.0); FHHb 6.3 % (0.0-5.0); FMetHb 0.3 % (0.0-1.5); FO2Hb 93.4 % (94-97); PATIENT TEMPERATURE 37.2; PEEP 10 cm H2O; RESPIRATORY RATE 32 b/min; TOTAL HEMOGLOBIN 9.8 G/dl (14.0-17.9)
[2023-03-12] MEDS: acetylcysteine 200 MG/ml 4ml vial INH SCH ×2 (03:10→07:35)
[2023-03-12] MEDS: ipratropium/albuterol 3ml nebule NEB SCH ×6 (03:10→23:20)
[2023-03-12] MEDS: FENTANYL-0.9 % NACL/PF 100 ML IV PRN ×3 (03:26→15:43)
[2023-03-12] MEDS: midazolam 100mg in NS 100ml 100 ML IV PRN ×2 (03:26→23:29)
[2023-03-12 03:37] LABS: ASPARTATE AMINO TRANSFERASE > 7000 U/L (10-37)
[2023-03-12 03:39] LABS: ALANINE AMINOTRANSFERASE 2796 U/L (12-78)
[2023-03-12] MEDS: sulfamethoxazole/trimethoprim 800/160mg per 20ml oral susp OGT SCH ×3 (06:04→22:05)
[2023-03-12] MEDS: amiodarone/D5 360MG/200ML BAG 200 ML IV SCH ×4 (06:15→23:24)
[2023-03-12] MEDS: pantoprazole 40MG/NS 100ML BAG 100 ML IV SCH ×2 (07:08→20:31)
[2023-03-12] MEDS: fluconazole-Diflucan 200mg/NS 100 ML IV SCH (07:30)
[2023-03-12] MEDS: aspirin 81mg tab.chew OGT SCH (07:50)
[2023-03-12] MEDS: sennosides/docusate sodium tablet OGT SCH ×2 (07:50→20:32)
[2023-03-12] MEDS: heparin, porcine 5000 units/ml vial SQ SCH ×2 (07:51→20:32)
[2023-03-12 07:52] LABS: VANCOMYCIN,RANDOM 36.9 ug/mL (20.0-30.0)
[2023-03-12] MEDS: potassium Cl 20mEq/100mL bag 100 ML IV PRN ×2 (08:16→09:36)
[2023-03-12] MEDS ORDERED: furosemide inj 1,000 MG in normal saline 250ml IV soln 150 ML IV SCH (09:30)
[2023-03-12] MEDS ORDERED: Neutra Phos packet PO PRN (09:30)
[2023-03-12] MEDS ORDERED: magnesium Cl slow-release 64mg tablet PO PRN (09:30)
[2023-03-12] MEDS ORDERED: sodium phosphate inj. 30 MMOL in dextrose 5%-water 250 ML IV PRN (09:30)
[2023-03-12] MEDS ORDERED: magnesium 2GM in 50ml NS 50 ML IV PRN (09:30)
[2023-03-12] MEDS ORDERED: sodium phosphate inj. 15 MMOL in dextrose 5%-water 250 ML IV PRN (09:30)
[2023-03-12] MEDS ORDERED: potassium Cl 20 mEq SR tablet PO PRN ×2 (09:30)
[2023-03-12] MEDS ORDERED: magnesium 4gm in 100ml NS 100 ML IV PRN (09:30)
[2023-03-12] MEDS: furosemide inj 100 MG in normal saline 100ml IV soln 90 ML IV SCH ×2 (10:19→19:40)
[2023-03-12 10:39] LABS: ALBUMIN 1.7 G/DL (3.4-5.0); ANION GAP 8 (8-16); BLOOD UREA NITROGEN 73 MG/DL (7-18); BUN/CREATININE RATIO 24.7 (10.0-20.0); CALCIUM 6.6 MG/DL (8.5-10.1); CHLORIDE 109 MMOL/L (99-107); CREATININE 2.96 MG/DL (0.60-1.10); MAGNESIUM 2.7 MG/DL (1.5-2.4); PHOSPHORUS 5.4 MG/DL (2.3-4.5); POTASSIUM 5.1 MMOL/L (3.5-5.1); SODIUM 143 MMOL/L (135-145); TOTAL CARBON DIOXIDE 26.4 MMOL/L (24-32); eCRCL 20 ML/MIN; eGFR 21 ML/MIN
[2023-03-12 10:44] LABS: GLUCOSE 119 MG/DL (70-104)
[2023-03-12] MEDS: acetaminophen 325mg/10.15ml oral unit dose solution OGT PRN (12:02)
[2023-03-12] MEDS ORDERED: Neutra Phos packet OGT PRN (13:04)
[2023-03-12] MEDS: albumin (human) 25% 100 ML IV solution IV SCH ×3 (13:16→23:55)
[2023-03-12] MEDS: NORepinephrine inj. 32 MG in normal saline 250ml IV soln 218 ML IV SCH (15:44)
[2023-03-12 15:58] LABS: ALBUMIN 2.1 G/DL (3.4-5.0); ANION GAP 10 (8-16); BLOOD UREA NITROGEN 76 MG/DL (7-18); BUN/CREATININE RATIO 25.3 (10.0-20.0); CALCIUM 6.7 MG/DL (8.5-10.1); CHLORIDE 109 MMOL/L (99-107); MAGNESIUM 2.7 MG/DL (1.5-2.4); PHOSPHORUS 5.1 MG/DL (2.3-4.5); POTASSIUM 4.7 MMOL/L (3.5-5.1); SODIUM 144 MMOL/L (135-145); TOTAL CARBON DIOXIDE 24.6 MMOL/L (24-32); eCRCL 20 ML/MIN; eGFR 21 ML/MIN
[2023-03-12] MEDS ORDERED: albumin (human) 25% 100 ML IV solution IV SCH (16:00)
[2023-03-12 16:01] LABS: GLUCOSE 114 MG/DL (70-104)
[2023-03-12] MEDS: methylPREDNISolone sod succ/PF 40mg inj. IV SCH (20:31)
[2023-03-12] MEDS: atorvastatin 10mg tablet OGT SCH (20:33)
[2023-03-12] MEDS: insulin glargine (Lantus) pen - multi-dose SQ SCH (20:51)
[2023-03-12 22:19] LABS: ALBUMIN 2.4 G/DL (3.4-5.0); ANION GAP 10 (8-16); BLOOD UREA NITROGEN 80 MG/DL (7-18); BUN/CREATININE RATIO 25.2 (10.0-20.0); CALCIUM 6.9 MG/DL (8.5-10.1); CHLORIDE 107 MMOL/L (99-107); CREATININE 3.17 MG/DL (0.60-1.10); GLUCOSE 88 MG/DL (70-104); PHOSPHORUS 5.3 MG/DL (2.3-4.5); POTASSIUM 4.6 MMOL/L (3.5-5.1); SODIUM 141 MMOL/L (135-145); TOTAL CARBON DIOXIDE 24.5 MMOL/L (24-32); eCRCL 19 ML/MIN; eGFR 20 ML/MIN
[2023-03-13] VITALS (48 sets, daily range): BP systolic 96–116; BP diastolic 52–66; PULSE 55–74; RESP 32–44; O2SAT 88–100
[2023-03-13 01:11] LABS: ABG BASE EXCESS -3.7 mmol/L (-2.0-2.0); ABG PCO2 (T) 44.4 mmHg (35.0-48.0); ABG PH (T) 7.316 (7.340-7.440); ABG PO2 (T) 72.5 mmHg (75.0-100.0); FCOHb 0.3 % (0.0-3.9); FHHb 9.9 % (0.0-5.0); FMetHb 0.3 % (0.0-1.5); FO2Hb 89.5 % (94-97); MODE ac pc 25; PATIENT TEMPERATURE 37.9; PEEP 10 cm H2O; RESPIRATORY RATE 32 b/min; TOTAL HEMOGLOBIN 8.4 G/dl (14.0-17.9)
[2023-03-13] MEDS: mineral oil/petrolatum ophthal oint EACHEYE SCH ×4 (02:12→20:38)
[2023-03-13] MEDS: insulin regular, human U-100 3ml vial - multi-dose SQ SCH (03:02)
[2023-03-13] MEDS: FENTANYL-0.9 % NACL/PF 100 ML IV PRN ×2 (03:02→14:09)
[2023-03-13] MEDS: ipratropium/albuterol 3ml nebule NEB SCH ×6 (03:23→22:47)
[2023-03-13] MEDS: furosemide inj 100 MG in normal saline 100ml IV soln 90 ML IV SCH (03:53)
[2023-03-13 04:01] LABS: ALBUMIN 2.9 G/DL (3.4-5.0); ALBUMIN/GLOBULIN RATIO 0.8 (1.1-1.5); ALKALINE PHOSPHATASE 261 IU/L (46-116); ANION GAP 10 (8-16); BILIRUBIN,TOTAL 1.1 MG/DL (0.1-1.0); BLOOD UREA NITROGEN 83 MG/DL (7-18); BUN/CREATININE RATIO 23.9 (10.0-20.0); CALCIUM 7.2 MG/DL (8.5-10.1); CHLORIDE 107 MMOL/L (99-107); CREATININE 3.47 MG/DL (0.60-1.10); GLUCOSE 104 MG/DL (70-104); MAGNESIUM 3.1 MG/DL (1.5-2.4); PHOSPHORUS 6.6 MG/DL (2.3-4.5); POTASSIUM 5.8 MMOL/L (3.5-5.1); SODIUM 143 MMOL/L (135-145); TOTAL CARBON DIOXIDE 26.2 MMOL/L (24-32); TOTAL PROTEIN 6.5 G/DL (6.4-8.2); eCRCL 17 ML/MIN; eGFR 18 ML/MIN
[2023-03-13 04:15] LABS: PREALBUMIN 8.4 MG/DL (19-36)
[2023-03-13 04:26] LABS: ALANINE AMINOTRANSFERASE 1546 U/L (12-78)
[2023-03-13 04:31] LABS: BASOPHILS % (AUTO) 0.6 % (0-1); EOSINOPHILS # (AUTO) 0.1 X10'3 (0-0.9); EOSINOPHILS % (AUTO) 1.6 % (0-6); HEMATOCRIT 23.5 % (42.0-52.0); HEMOGLOBIN 7.6 g/dl (14.0-17.9); LYMPHOCYTES # (AUTO) 0.5 X10'3 (1.1-4.8); MEAN CORPUSCULAR HEMOGLOBIN 27.8 PG (27.0-31.0); MEAN CORPUSCULAR HGB CONC 32.2 g/dL (33.0-36.5); MEAN CORPUSCULAR VOLUME 86.2 FL (78-98); MEAN PLATELET VOLUME 9.8 FL (7.4-10.4); MONOCYTES # (AUTO) 0.2 X10'3 (0-0.9); MONOCYTES % (AUTO) 2.6 % (2-12); NEUTROPHILS # (AUTO) 6.1 X10'3 (1.8-7.7); NEUTROPHILS % (AUTO) 88.2 % (42-75); PLATELET COUNT 85 X10'3 (140-440); RED BLOOD COUNT 2.73 X10'6 (4.70-6.10); RED CELL DISTRIBUTION WIDTH 16.9 % (11.5-14.5); WHITE BLOOD COUNT 6.9 X10'3 (4.5-11.0)
[2023-03-13 04:45] LABS: ASPARTATE AMINO TRANSFERASE 2788 U/L (10-37)
[2023-03-13] MEDS: sulfamethoxazole/trimethoprim 800/160mg per 20ml oral susp OGT SCH ×3 (05:56→22:00)
[2023-03-13] MEDS: amiodarone/D5 360MG/200ML BAG 200 ML IV SCH ×3 (06:15→23:30)
[2023-03-13] MEDS: NORepinephrine inj. 32 MG in normal saline 250ml IV soln 218 ML IV SCH (07:08)
[2023-03-13] MEDS: fluconazole-Diflucan 200mg/NS 100 ML IV SCH (07:53)
[2023-03-13] MEDS: pantoprazole 40MG/NS 100ML BAG 100 ML IV SCH ×2 (07:53→20:32)
[2023-03-13] MEDS: sennosides/docusate sodium tablet OGT SCH ×2 (07:54→20:32)
[2023-03-13] MEDS: methylPREDNISolone sod succ/PF 40mg inj. IV SCH ×2 (07:54→20:32)
[2023-03-13] MEDS: albumin (human) 25% 100 ML IV solution IV SCH ×2 (07:54→16:12)
[2023-03-13] MEDS: aspirin 81mg tab.chew OGT SCH (07:54)
[2023-03-13] MEDS: metoclopramide 5 mg/ml inj IV SCH ×2 (07:55→16:15)
[2023-03-13] MEDS: heparin, porcine 5000 units/ml vial SQ SCH ×2 (08:21→20:32)
[2023-03-13] MEDS ORDERED: sodium phosphate inj. 30 MMOL in dextrose 5%-water 250 ML IV PRN (09:45)
[2023-03-13] MEDS ORDERED: calcium chloride inj. 1,000 MG in normal saline 100ml IV soln 100 ML IV PRN (09:45)
[2023-03-13] MEDS ORDERED: magnesium 4gm in 100ml NS 100 ML IV PRN (09:45)
[2023-03-13] MEDS ORDERED: Duosol 4K/3 Ca (w/calcium) 5,000 ML HE SCH (09:45)
[2023-03-13] MEDS ORDERED: potassium Cl 40MEQ/270ML bag 270 ML IV PRN (09:45)
[2023-03-13 09:57] LABS: ANION GAP 10 (8-16); BLOOD UREA NITROGEN 84 MG/DL (7-18); BUN/CREATININE RATIO 25.2 (10.0-20.0); CHLORIDE 107 MMOL/L (99-107); CREATININE 3.33 MG/DL (0.60-1.10); GLUCOSE 124 MG/DL (70-104); PHOSPHORUS 6.3 MG/DL (2.3-4.5); POTASSIUM 5.7 MMOL/L (3.5-5.1); SODIUM 142 MMOL/L (135-145); TOTAL CARBON DIOXIDE 24.9 MMOL/L (24-32); eCRCL 18 ML/MIN; eGFR 19 ML/MIN
[2023-03-13] MEDS ORDERED: heparin 1,000 units/ml 10ml inj HE ONE ×2 (11:00)
[2023-03-13] MEDS ORDERED: VANCOMYCIN LEVEL IV ONE (12:00)
[2023-03-13 13:40] LABS: BASOPHILS % (AUTO) 0.4 % (0-1); EOSINOPHILS % (AUTO) 0.2 % (0-6); HEMATOCRIT 22.2 % (42.0-52.0); HEMOGLOBIN 7.2 g/dl (14.0-17.9); LYMPHOCYTES # (AUTO) 0.6 X10'3 (1.1-4.8); LYMPHOCYTES % (AUTO) 7.4 % (21-51); MEAN CORPUSCULAR HEMOGLOBIN 27.9 PG (27.0-31.0); MEAN CORPUSCULAR HGB CONC 32.4 g/dL (33.0-36.5); MEAN CORPUSCULAR VOLUME 86.1 FL (78-98); MEAN PLATELET VOLUME 9.2 FL (7.4-10.4); MONOCYTES # (AUTO) 0.4 X10'3 (0-0.9); MONOCYTES % (AUTO) 4.2 % (2-12); NEUTROPHILS # (AUTO) 7.6 X10'3 (1.8-7.7); NEUTROPHILS % (AUTO) 87.8 % (42-75); PLATELET COUNT 87 X10'3 (140-440); RED BLOOD COUNT 2.58 X10'6 (4.70-6.10); RED CELL DISTRIBUTION WIDTH 16.9 % (11.5-14.5); WHITE BLOOD COUNT 8.6 X10'3 (4.5-11.0)
[2023-03-13 13:54] LABS: ALBUMIN 2.6 G/DL (3.4-5.0); ANION GAP 10 (8-16); BLOOD UREA NITROGEN 86 MG/DL (7-18); BUN/CREATININE RATIO 26.1 (10.0-20.0); CHLORIDE 105 MMOL/L (99-107); CREATININE 3.29 MG/DL (0.60-1.10); GLUCOSE 164 MG/DL (70-104); PHOSPHORUS 6.5 MG/DL (2.3-4.5); POTASSIUM 5.4 MMOL/L (3.5-5.1); SODIUM 140 MMOL/L (135-145); TOTAL CARBON DIOXIDE 24.7 MMOL/L (24-32); eGFR 19 ML/MIN
[2023-03-13 14:45] LABS: ANISOCYTOSIS 1+; PLATELET ESTIMATE DECREASED; SMUDGE CELLS FEW; TOTAL CELLS COUNTED 100
[2023-03-13 14:46] LABS: ELLIPTOCYTES FEW; SPHEROCYTES FEW; TEAR DROP CELLS FEW
[2023-03-13 14:49] LABS: BASOPHILS % (AUTO) 0.5 % (0-1); EOSINOPHILS % (AUTO) 0.1 % (0-6); HEMATOCRIT 22.7 % (42.0-52.0); HEMOGLOBIN 7.4 g/dl (14.0-17.9); LYMPHOCYTES # (AUTO) 0.6 X10'3 (1.1-4.8); LYMPHOCYTES % (AUTO) 6.8 % (21-51); MEAN CORPUSCULAR HEMOGLOBIN 27.8 PG (27.0-31.0); MEAN CORPUSCULAR HGB CONC 32.5 g/dL (33.0-36.5); MEAN CORPUSCULAR VOLUME 85.5 FL (78-98); MEAN PLATELET VOLUME 9.5 FL (7.4-10.4); MONOCYTES # (AUTO) 0.4 X10'3 (0-0.9); MONOCYTES % (AUTO) 4.8 % (2-12); NEUTROPHILS # (AUTO) 8.2 X10'3 (1.8-7.7); NEUTROPHILS % (AUTO) 87.8 % (42-75); PLATELET COUNT 96 X10'3 (140-440); RED BLOOD COUNT 2.66 X10'6 (4.70-6.10); RED CELL DISTRIBUTION WIDTH 17.2 % (11.5-14.5); WHITE BLOOD COUNT 9.3 X10'3 (4.5-11.0)
[2023-03-13 15:03] LABS: ALBUMIN 2.6 G/DL (3.4-5.0); ANION GAP 12 (8-16); BLOOD UREA NITROGEN 81 MG/DL (7-18); BUN/CREATININE RATIO 26.6 (10.0-20.0); CALCIUM CVVH 6.4 MG/DL (8.5-10.1); CHLORIDE 105 MMOL/L (99-107); CREATININE 3.05 MG/DL (0.60-1.10); GLUCOSE 165 MG/DL (70-104); PHOSPHORUS 5.5 MG/DL (2.3-4.5); POTASSIUM 5.3 MMOL/L (3.5-5.1); SODIUM 140 MMOL/L (135-145); TOTAL CARBON DIOXIDE 23.5 MMOL/L (24-32); eGFR 21 ML/MIN
[2023-03-13] MEDS: Duosol 4K/3 Ca (w/calcium) 5,000 ML HE SCH ×5 (15:31→23:26)
[2023-03-13 15:53] LABS: BASOPHILS # (AUTO) 0.1 X10'3 (0-0.2); BASOPHILS % (AUTO) 0.7 % (0-1); EOSINOPHILS % (AUTO) 0.1 % (0-6); HEMATOCRIT 23.3 % (42.0-52.0); HEMOGLOBIN 7.5 g/dl (14.0-17.9); LYMPHOCYTES # (AUTO) 0.6 X10'3 (1.1-4.8); MEAN CORPUSCULAR HEMOGLOBIN 27.5 PG (27.0-31.0); MEAN CORPUSCULAR HGB CONC 32.1 g/dL (33.0-36.5); MEAN CORPUSCULAR VOLUME 85.8 FL (78-98); MEAN PLATELET VOLUME 9.5 FL (7.4-10.4); MONOCYTES # (AUTO) 0.5 X10'3 (0-0.9); MONOCYTES % (AUTO) 4.7 % (2-12); NEUTROPHILS # (AUTO) 8.5 X10'3 (1.8-7.7); NEUTROPHILS % (AUTO) 88.5 % (42-75); PLATELET COUNT 101 X10'3 (140-440); RED BLOOD COUNT 2.72 X10'6 (4.70-6.10); WHITE BLOOD COUNT 9.6 X10'3 (4.5-11.0)
[2023-03-13 16:11] LABS: ALBUMIN 2.6 G/DL (3.4-5.0); ANION GAP 10 (8-16); BLOOD UREA NITROGEN 78 MG/DL (7-18); BUN/CREATININE RATIO 26.4 (10.0-20.0); CALCIUM CVVH 6.9 MG/DL (8.5-10.1); CHLORIDE 106 MMOL/L (99-107); CREATININE 2.96 MG/DL (0.60-1.10); GLUCOSE 166 MG/DL (70-104); MAGNESIUM 2.9 MG/DL (1.5-2.4); PHOSPHORUS 5.8 MG/DL (2.3-4.5); POTASSIUM 5.4 MMOL/L (3.5-5.1); SODIUM 141 MMOL/L (135-145); TOTAL CARBON DIOXIDE 25.5 MMOL/L (24-32); eGFR 21 ML/MIN
[2023-03-13 17:11] LABS: BASOPHILS % (AUTO) 0.4 % (0-1); EOSINOPHILS % (AUTO) 0.2 % (0-6); HEMATOCRIT 23.4 % (42.0-52.0); HEMOGLOBIN 7.6 g/dl (14.0-17.9); LYMPHOCYTES # (AUTO) 0.7 X10'3 (1.1-4.8); LYMPHOCYTES % (AUTO) 6.5 % (21-51); MEAN CORPUSCULAR HEMOGLOBIN 27.7 PG (27.0-31.0); MEAN CORPUSCULAR HGB CONC 32.2 g/dL (33.0-36.5); MEAN CORPUSCULAR VOLUME 85.8 FL (78-98); MEAN PLATELET VOLUME 9.3 FL (7.4-10.4); MONOCYTES # (AUTO) 0.5 X10'3 (0-0.9); MONOCYTES % (AUTO) 5.4 % (2-12); NEUTROPHILS # (AUTO) 8.9 X10'3 (1.8-7.7); NEUTROPHILS % (AUTO) 87.5 % (42-75); PLATELET COUNT 103 X10'3 (140-440); RED BLOOD COUNT 2.73 X10'6 (4.70-6.10); RED CELL DISTRIBUTION WIDTH 17.1 % (11.5-14.5); WHITE BLOOD COUNT 10.2 X10'3 (4.5-11.0)
[2023-03-13 17:31] LABS: APTT 48 SECONDS (22-32); PROTHROMBIN TIME 20.3 SECONDS (9.0-12.0)
[2023-03-13 17:42] LABS: ALBUMIN 2.9 G/DL (3.4-5.0); ANION GAP 8 (8-16); BLOOD UREA NITROGEN 77 MG/DL (7-18); BUN/CREATININE RATIO 26.5 (10.0-20.0); CALCIUM CVVH 7.4 MG/DL (8.5-10.1); CHLORIDE 107 MMOL/L (99-107); CREATININE 2.91 MG/DL (0.60-1.10); GLUCOSE 164 MG/DL (70-104); MAGNESIUM 2.9 MG/DL (1.5-2.4); PHOSPHORUS 5.5 MG/DL (2.3-4.5); POTASSIUM 5.4 MMOL/L (3.5-5.1); SODIUM 141 MMOL/L (135-145); TOTAL CARBON DIOXIDE 25.6 MMOL/L (24-32); eGFR 22 ML/MIN
[2023-03-13] MEDS ORDERED: gelatin sponge, absorbable (Gelfoam 100) sponge TP ONE (17:50)
[2023-03-13 18:54] LABS: BASOPHILS # (AUTO) 0.1 X10'3 (0-0.2); BASOPHILS % (AUTO) 0.5 % (0-1); EOSINOPHILS % (AUTO) 0.1 % (0-6); HEMATOCRIT 22.9 % (42.0-52.0); HEMOGLOBIN 7.4 g/dl (14.0-17.9); LYMPHOCYTES # (AUTO) 0.7 X10'3 (1.1-4.8); LYMPHOCYTES % (AUTO) 7.1 % (21-51); MEAN CORPUSCULAR HEMOGLOBIN 27.6 PG (27.0-31.0); MEAN CORPUSCULAR HGB CONC 32.2 g/dL (33.0-36.5); MEAN CORPUSCULAR VOLUME 85.9 FL (78-98); MEAN PLATELET VOLUME 9.2 FL (7.4-10.4); MONOCYTES # (AUTO) 0.6 X10'3 (0-0.9); MONOCYTES % (AUTO) 5.7 % (2-12); NEUTROPHILS # (AUTO) 8.7 X10'3 (1.8-7.7); NEUTROPHILS % (AUTO) 86.6 % (42-75); PLATELET COUNT 103 X10'3 (140-440); RED BLOOD COUNT 2.67 X10'6 (4.70-6.10); RED CELL DISTRIBUTION WIDTH 17.2 % (11.5-14.5); WHITE BLOOD COUNT 10.1 X10'3 (4.5-11.0)
[2023-03-13] MEDS: midazolam 100mg in NS 100ml 100 ML IV PRN (18:59)
[2023-03-13 19:10] LABS: ALBUMIN 3.1 G/DL (3.4-5.0); ANION GAP 9 (8-16); BLOOD UREA NITROGEN 70 MG/DL (7-18); BUN/CREATININE RATIO 25.9 (10.0-20.0); CALCIUM CVVH 6.7 MG/DL (8.5-10.1); CHLORIDE 105 MMOL/L (99-107); GLUCOSE 157 MG/DL (70-104); MAGNESIUM 2.8 MG/DL (1.5-2.4); PHOSPHORUS 5.3 MG/DL (2.3-4.5); POTASSIUM 5.2 MMOL/L (3.5-5.1); SODIUM 140 MMOL/L (135-145); TOTAL CARBON DIOXIDE 25.6 MMOL/L (24-32); eGFR 24 ML/MIN
[2023-03-13] MEDS: atorvastatin 10mg tablet OGT SCH (20:32)
[2023-03-13 20:38] LABS: VANCOMYCIN,RANDOM 21.2 ug/mL (20.0-30.0)
[2023-03-13] MEDS: insulin glargine (Lantus) pen - multi-dose SQ SCH (21:00)
[2023-03-14] VITALS (49 sets, daily range): BP systolic 97–120; BP diastolic 54–69; PULSE 33–77; RESP 32–43; TEMP 97.6–98.5; O2SAT 63–97
[2023-03-14] MEDS: metoclopramide 5 mg/ml inj IV SCH ×3 (00:01→15:16)
[2023-03-14] MEDS: albumin (human) 25% 100 ML IV solution IV SCH ×3 (00:02→17:06)
[2023-03-14] MEDS: FENTANYL-0.9 % NACL/PF 100 ML IV PRN ×3 (01:10→16:18)
[2023-03-14 01:14] LABS: BASOPHILS % (AUTO) 0.2 % (0-1); EOSINOPHILS % (AUTO) 0.1 % (0-6); HEMATOCRIT 22.8 % (42.0-52.0); HEMOGLOBIN 7.3 g/dl (14.0-17.9); LYMPHOCYTES # (AUTO) 0.6 X10'3 (1.1-4.8); LYMPHOCYTES % (AUTO) 5.3 % (21-51); MEAN CORPUSCULAR HEMOGLOBIN 27.4 PG (27.0-31.0); MEAN CORPUSCULAR VOLUME 85.6 FL (78-98); MEAN PLATELET VOLUME 8.9 FL (7.4-10.4); MONOCYTES # (AUTO) 0.8 X10'3 (0-0.9); MONOCYTES % (AUTO) 6.4 % (2-12); NEUTROPHILS # (AUTO) 10.6 X10'3 (1.8-7.7); PLATELET COUNT 104 X10'3 (140-440); RED BLOOD COUNT 2.67 X10'6 (4.70-6.10); RED CELL DISTRIBUTION WIDTH 17.3 % (11.5-14.5); WHITE BLOOD COUNT 12.1 X10'3 (4.5-11.0)
[2023-03-14 01:27] LABS: ALBUMIN 3.3 G/DL (3.4-5.0); ANION GAP 10 (8-16); BLOOD UREA NITROGEN 61 MG/DL (7-18); BUN/CREATININE RATIO 25.2 (10.0-20.0); CALCIUM CVVH 7.7 MG/DL (8.5-10.1); CHLORIDE 105 MMOL/L (99-107); CREATININE 2.42 MG/DL (0.60-1.10); GLUCOSE 143 MG/DL (70-104); MAGNESIUM 2.6 MG/DL (1.5-2.4); PHOSPHORUS 4.6 MG/DL (2.3-4.5); SODIUM 141 MMOL/L (135-145); TOTAL CARBON DIOXIDE 26.4 MMOL/L (24-32); eGFR 27 ML/MIN
[2023-03-14] MEDS: mineral oil/petrolatum ophthal oint EACHEYE SCH ×4 (02:37→19:54)
[2023-03-14] MEDS: ipratropium/albuterol 3ml nebule NEB SCH ×6 (03:11→23:05)
[2023-03-14 03:20] LABS: ABG BASE EXCESS -0.2 mmol/L (-2.0-2.0); ABG OXYGEN SATURATION 96.7 % (94-97); ABG PCO2 (T) 35.8 mmHg (35.0-48.0); ABG PH (T) 7.441 (7.340-7.440); ABG PO2 (T) 86.4 mmHg (75.0-100.0); FCOHb 0.9 % (0.0-3.9); FHHb 3.3 % (0.0-5.0); FMetHb 0.3 % (0.0-1.5); FO2Hb 95.5 % (94-97); MODE ac pc 25; PEEP 10 cm H2O; RESPIRATORY RATE 32 b/min
[2023-03-14] MEDS: Duosol 4K/3 Ca (w/calcium) 5,000 ML HE SCH ×13 (03:31→20:08)
[2023-03-14 03:36] LABS: NUCLEATED RED BLOOD CELLS 3 /100WBC (0-0); TOTAL CELLS COUNTED 100
[2023-03-14 03:37] LABS: ANISOCYTOSIS 1+; PLATELET ESTIMATE DECREASED; POLYCHROMASIA FEW
[2023-03-14 03:38] LABS: ELLIPTOCYTES FEW; HYPOCHROMASIA 1+; SCHISTOCYTES FEW
[2023-03-14 03:39] LABS: LARGE PLATELETS FEW
[2023-03-14] MEDS: NORepinephrine inj. 32 MG in normal saline 250ml IV soln 218 ML IV SCH (04:43)
[2023-03-14] MEDS: sulfamethoxazole/trimethoprim 800/160mg per 20ml oral susp OGT SCH ×3 (05:41→22:53)
[2023-03-14] MEDS: amiodarone/D5 360MG/200ML BAG 200 ML IV SCH ×5 (06:15→20:51)
[2023-03-14] MEDS: pantoprazole 40MG/NS 100ML BAG 100 ML IV SCH ×2 (07:40→19:53)
[2023-03-14] MEDS: methylPREDNISolone sod succ/PF 40mg inj. IV SCH ×2 (07:40→19:53)
[2023-03-14] MEDS: sennosides/docusate sodium tablet OGT SCH ×2 (07:40→19:53)
[2023-03-14] MEDS: fluconazole-Diflucan 200mg/NS 100 ML IV SCH (07:40)
[2023-03-14] MEDS: aspirin 81mg tab.chew OGT SCH (07:52)
[2023-03-14] MEDS: heparin, porcine 5000 units/ml vial SQ SCH ×2 (08:00→20:00)
[2023-03-14 08:04] LABS: BASOPHILS % (AUTO) 0.4 % (0-1); EOSINOPHILS % (AUTO) 0 % (0-6); HEMOGLOBIN 7.1 g/dl (14.0-17.9); LYMPHOCYTES # (AUTO) 0.7 X10'3 (1.1-4.8); LYMPHOCYTES % (AUTO) 5.7 % (21-51); MEAN CORPUSCULAR HEMOGLOBIN 27.6 PG (27.0-31.0); MEAN CORPUSCULAR HGB CONC 32.3 g/dL (33.0-36.5); MEAN CORPUSCULAR VOLUME 85.6 FL (78-98); MEAN PLATELET VOLUME 8.4 FL (7.4-10.4); MONOCYTES # (AUTO) 0.9 X10'3 (0-0.9); MONOCYTES % (AUTO) 7.7 % (2-12); NEUTROPHILS # (AUTO) 10.1 X10'3 (1.8-7.7); NEUTROPHILS % (AUTO) 86.2 % (42-75); PLATELET COUNT 86 X10'3 (140-440); RED BLOOD COUNT 2.56 X10'6 (4.70-6.10); WHITE BLOOD COUNT 11.8 X10'3 (4.5-11.0)
[2023-03-14 08:12] LABS: HEMATOCRIT 21.9 % (42.0-52.0)
[2023-03-14 09:24] LABS: HIV LOG 10 6.608 (.); HIV-1 RNA by PCR 4052630 copies/mL (.)
[2023-03-14] MEDS ORDERED: phytonadione 10 MG/1 ML amp PO ONE (10:00)
[2023-03-14 11:41] LABS: ASPARTATE AMINO TRANSFERASE 961 U/L (10-37); MAGNESIUM 2.4 MG/DL (1.5-2.4)
[2023-03-14 12:02] LABS: ALANINE AMINOTRANSFERASE 853 U/L (12-78); ALBUMIN 3.2 G/DL (3.4-5.0); ALKALINE PHOSPHATASE 179 IU/L (46-116); ANION GAP 11 (8-16); BILIRUBIN,TOTAL 1.3 MG/DL (0.1-1.0); BLOOD UREA NITROGEN 50 MG/DL (7-18); BUN/CREATININE RATIO 24.2 (10.0-20.0); CALCIUM 7.9 MG/DL (8.5-10.1); CHLORIDE 105 MMOL/L (99-107); CREATININE 2.07 MG/DL (0.60-1.10); GLUCOSE 134 MG/DL (70-104); PHOSPHORUS 4.1 MG/DL (2.3-4.5); POTASSIUM 4.8 MMOL/L (3.5-5.1); SODIUM 140 MMOL/L (135-145); TOTAL CARBON DIOXIDE 24.5 MMOL/L (24-32); TOTAL PROTEIN 6.4 G/DL (6.4-8.2); VANCOMYCIN,RANDOM 15.8 ug/mL (20.0-30.0); eCRCL 29 ML/MIN; eGFR 32 ML/MIN
[2023-03-14 13:20] LABS: ALBUMIN 2.9 G/DL (3.4-5.0); ANION GAP 9 (8-16); BLOOD UREA NITROGEN 48 MG/DL (7-18); BUN/CREATININE RATIO 24.1 (10.0-20.0); CALCIUM CVVH 7.6 MG/DL (8.5-10.1); CHLORIDE 106 MMOL/L (99-107); CREATININE 1.99 MG/DL (0.60-1.10); GLUCOSE 120 MG/DL (70-104); MAGNESIUM 2.3 MG/DL (1.5-2.4); PHOSPHORUS 4.4 MG/DL (2.3-4.5); POTASSIUM 5.1 MMOL/L (3.5-5.1); SODIUM 140 MMOL/L (135-145); eGFR 34 ML/MIN
[2023-03-14 13:22] LABS: BASOPHILS % (AUTO) 0.3 % (0-1); EOSINOPHILS % (AUTO) 0.1 % (0-6); LYMPHOCYTES # (AUTO) 0.7 X10'3 (1.1-4.8); LYMPHOCYTES % (AUTO) 6.3 % (21-51); MEAN CORPUSCULAR HEMOGLOBIN 27.1 PG (27.0-31.0); MEAN CORPUSCULAR HGB CONC 31.4 g/dL (33.0-36.5); MEAN CORPUSCULAR VOLUME 86.3 FL (78-98); MEAN PLATELET VOLUME 9.2 FL (7.4-10.4); MONOCYTES # (AUTO) 0.8 X10'3 (0-0.9); MONOCYTES % (AUTO) 6.5 % (2-12); NEUTROPHILS # (AUTO) 10.1 X10'3 (1.8-7.7); NEUTROPHILS % (AUTO) 86.8 % (42-75); PLATELET COUNT 86 X10'3 (140-440); RED BLOOD COUNT 2.53 X10'6 (4.70-6.10); RED CELL DISTRIBUTION WIDTH 17.1 % (11.5-14.5); WHITE BLOOD COUNT 11.6 X10'3 (4.5-11.0)
[2023-03-14 13:41] LABS: HEMATOCRIT 21.8 % (42.0-52.0); HEMOGLOBIN 6.8 g/dl (14.0-17.9)
[2023-03-14 13:46] LABS: ANISOCYTOSIS 1+; NUCLEATED RED BLOOD CELLS 1 /100WBC (0-0); PLATELET ESTIMATE DECREASED; POLYCHROMASIA 1+; TOTAL CELLS COUNTED 100
[2023-03-14 13:47] LABS: ELLIPTOCYTES FEW
[2023-03-14 14:41] LABS: HEP B CORE AB, IGM Negative (Negative)
[2023-03-14] MEDS: vancomycin/NS 1 GM ADD-VANTAGE 250 ML IV SCH (15:16)
[2023-03-14 15:22] LABS: APTT 46 SECONDS (22-32); PROTHROMBIN TIME 20.8 SECONDS (9.0-12.0)
[2023-03-14 19:55] LABS: EOSINOPHILS % (AUTO) 0.1 % (0-6); LYMPHOCYTES # (AUTO) 0.7 X10'3 (1.1-4.8); RED CELL DISTRIBUTION WIDTH 16.7 % (11.5-14.5)
[2023-03-14 19:56] LABS: BASOPHILS % (AUTO) 0.3 % (0-1); HEMATOCRIT 24.7 % (42.0-52.0); MEAN CORPUSCULAR HGB CONC 32.3 g/dL (33.0-36.5); MEAN CORPUSCULAR VOLUME 86.6 FL (78-98); MEAN PLATELET VOLUME 8.8 FL (7.4-10.4); MONOCYTES # (AUTO) 0.9 X10'3 (0-0.9); MONOCYTES % (AUTO) 8.4 % (2-12); NEUTROPHILS # (AUTO) 9.5 X10'3 (1.8-7.7); NEUTROPHILS % (AUTO) 85.2 % (42-75); PLATELET COUNT 80 X10'3 (140-440); RED BLOOD COUNT 2.86 X10'6 (4.70-6.10); WHITE BLOOD COUNT 11.1 X10'3 (4.5-11.0)
[2023-03-14 19:57] LABS: CRYPTOCOCCUS ANTIGEN, SERUM Negative (Negative)
[2023-03-14] MEDS: atorvastatin 10mg tablet OGT SCH (20:05)
[2023-03-14 20:07] LABS: ALBUMIN 3.4 G/DL (3.4-5.0); ANION GAP 7 (8-16); BLOOD UREA NITROGEN 41 MG/DL (7-18); CALCIUM CVVH 6.9 MG/DL (8.5-10.1); CHLORIDE 104 MMOL/L (99-107); CREATININE 1.78 MG/DL (0.60-1.10); GLUCOSE 143 MG/DL (70-104); MAGNESIUM 2.2 MG/DL (1.5-2.4); PHOSPHORUS 3.5 MG/DL (2.3-4.5); SODIUM 137 MMOL/L (135-145); TOTAL CARBON DIOXIDE 25.7 MMOL/L (24-32); eGFR 38 ML/MIN
[2023-03-14] MEDS: insulin glargine (Lantus) pen - multi-dose SQ SCH (21:00)
[2023-03-15] VITALS (45 sets, daily range): BP systolic 83–136; BP diastolic 40–76; PULSE 50–67; RESP 26–36; O2SAT 90–97
[2023-03-15] MEDS: albumin (human) 25% 100 ML IV solution IV SCH ×4 (00:10→23:56)
[2023-03-15] MEDS: metoclopramide 5 mg/ml inj IV SCH ×3 (00:11→16:28)
[2023-03-15] MEDS: Duosol 4K/3 Ca (w/calcium) 5,000 ML HE SCH ×9 (01:01→20:16)
[2023-03-15 01:57] LABS: BASOPHILS % (AUTO) 0.2 % (0-1); EOSINOPHILS % (AUTO) 0.1 % (0-6); HEMATOCRIT 24.1 % (42.0-52.0); HEMOGLOBIN 7.9 g/dl (14.0-17.9); LYMPHOCYTES # (AUTO) 0.6 X10'3 (1.1-4.8)
[2023-03-15 01:59] LABS: LYMPHOCYTES % (AUTO) 5.5 % (21-51); MEAN CORPUSCULAR HEMOGLOBIN 28.5 PG (27.0-31.0); MEAN CORPUSCULAR HGB CONC 32.7 g/dL (33.0-36.5); MONOCYTES # (AUTO) 0.8 X10'3 (0-0.9); MONOCYTES % (AUTO) 8.4 % (2-12); NEUTROPHILS # (AUTO) 8.7 X10'3 (1.8-7.7); NEUTROPHILS % (AUTO) 85.8 % (42-75); PLATELET COUNT 75 X10'3 (140-440); RED BLOOD COUNT 2.77 X10'6 (4.70-6.10); RED CELL DISTRIBUTION WIDTH 16.5 % (11.5-14.5); WHITE BLOOD COUNT 10.1 X10'3 (4.5-11.0)
[2023-03-15] MEDS: mineral oil/petrolatum ophthal oint EACHEYE SCH ×4 (02:00→20:00)
[2023-03-15 02:02] LABS: ALANINE AMINOTRANSFERASE 622 U/L (12-78); ALBUMIN 3.4 G/DL (3.4-5.0); ALKALINE PHOSPHATASE 155 IU/L (46-116); ANION GAP 8 (8-16); ASPARTATE AMINO TRANSFERASE 454 U/L (10-37); BILIRUBIN,TOTAL 1.5 MG/DL (0.1-1.0); BLOOD UREA NITROGEN 40 MG/DL (7-18); BUN/CREATININE RATIO 22.6 (10.0-20.0); CALCIUM 8.1 MG/DL (8.5-10.1); CHLORIDE 104 MMOL/L (99-107); CREATININE 1.77 MG/DL (0.60-1.10); GLUCOSE 171 MG/DL (70-104); MAGNESIUM 2.1 MG/DL (1.5-2.4); PHOSPHORUS 3.6 MG/DL (2.3-4.5); SODIUM 138 MMOL/L (135-145); TOTAL CARBON DIOXIDE 26.1 MMOL/L (24-32); TOTAL PROTEIN 6.9 G/DL (6.4-8.2); eCRCL 34 ML/MIN; eGFR 39 ML/MIN
[2023-03-15] MEDS: ipratropium/albuterol 3ml nebule NEB SCH ×6 (03:31→23:25)
[2023-03-15] MEDS: midazolam 100mg in NS 100ml 100 ML IV PRN (03:37)
[2023-03-15 03:47] LABS: ABG BASE EXCESS 0.8 mmol/L (-2.0-2.0); ABG HCO3 25.4 mmol/L (22.0-26.0); ABG OXYGEN SATURATION 92.4 % (94-97); ABG PCO2 (T) 40.7 mmHg (35.0-48.0); ABG PH (T) 7.413 (7.340-7.440); ABG PO2 (T) 66.8 mmHg (75.0-100.0); FCOHb 1.1 % (0.0-3.9); FHHb 7.5 % (0.0-5.0); FMetHb 0.3 % (0.0-1.5); FO2Hb 91.1 % (94-97); PEEP 10 cm H2O; RESPIRATORY RATE 32 b/min; TOTAL HEMOGLOBIN 8.6 G/dl (14.0-17.9)
[2023-03-15] MEDS: sulfamethoxazole/trimethoprim 800/160mg per 20ml oral susp OGT SCH ×3 (05:20→22:08)
[2023-03-15] MEDS: amiodarone/D5 360MG/200ML BAG 200 ML IV SCH ×2 (06:15→08:36)
[2023-03-15 06:28] LABS: HBV IU/mL <10 IU/mL (.)
[2023-03-15] MEDS: FENTANYL-0.9 % NACL/PF 100 ML IV PRN ×3 (06:58→21:42)
[2023-03-15] MEDS: heparin, porcine 5000 units/ml vial SQ SCH ×2 (08:22→20:00)
[2023-03-15] MEDS: aspirin 81mg tab.chew OGT SCH (08:22)
[2023-03-15] MEDS: sennosides/docusate sodium tablet OGT SCH ×2 (08:22→20:00)
[2023-03-15] MEDS: methylPREDNISolone sod succ/PF 40mg inj. IV SCH ×2 (08:22→20:00)
[2023-03-15] MEDS: pantoprazole 40MG/NS 100ML BAG 100 ML IV SCH ×2 (08:23→20:00)
[2023-03-15 08:53] LABS: ALBUMIN 3.3 G/DL (3.4-5.0); ANION GAP 8 (8-16); BLOOD UREA NITROGEN 38 MG/DL (7-18); BUN/CREATININE RATIO 22.6 (10.0-20.0); CALCIUM CVVH 8.2 MG/DL (8.5-10.1); CHLORIDE 103 MMOL/L (99-107); CREATININE 1.68 MG/DL (0.60-1.10); GLUCOSE 181 MG/DL (70-104); MAGNESIUM 2.2 MG/DL (1.5-2.4); SODIUM 138 MMOL/L (135-145); TOTAL CARBON DIOXIDE 27.1 MMOL/L (24-32); VANCOMYCIN,RANDOM 15.3 ug/mL (20.0-30.0); eGFR 41 ML/MIN
[2023-03-15] MEDS: fluconazole-Diflucan 200mg/NS 100 ML IV SCH (08:55)
[2023-03-15] MEDS: NORepinephrine inj. 32 MG in normal saline 250ml IV soln 218 ML IV SCH (13:16)
[2023-03-15] MEDS: vancomycin/NS 1 GM ADD-VANTAGE 250 ML IV SCH ×2 (14:27→14:51)
[2023-03-15 14:38] LABS: EOSINOPHILS % (AUTO) 0.1 % (0-6); HEMOGLOBIN 7.8 g/dl (14.0-17.9); MEAN PLATELET VOLUME 9.9 FL (7.4-10.4); NEUTROPHILS % (AUTO) 86.1 % (42-75); PLATELET COUNT 84 X10'3 (140-440); WHITE BLOOD COUNT 12.1 X10'3 (4.5-11.0)
[2023-03-15 14:40] LABS: BASOPHILS % (AUTO) 0.1 % (0-1); HEMATOCRIT 24.2 % (42.0-52.0); LYMPHOCYTES # (AUTO) 0.7 X10'3 (1.1-4.8); LYMPHOCYTES % (AUTO) 5.9 % (21-51); MEAN CORPUSCULAR HEMOGLOBIN 28.3 PG (27.0-31.0); MEAN CORPUSCULAR HGB CONC 32.2 g/dL (33.0-36.5); MEAN CORPUSCULAR VOLUME 87.7 FL (78-98); MONOCYTES # (AUTO) 0.9 X10'3 (0-0.9); MONOCYTES % (AUTO) 7.8 % (2-12); NEUTROPHILS # (AUTO) 10.4 X10'3 (1.8-7.7); RED BLOOD COUNT 2.75 X10'6 (4.70-6.10); RED CELL DISTRIBUTION WIDTH 16.7 % (11.5-14.5)
[2023-03-15] MEDS: insulin regular, human U-100 3ml vial - multi-dose SQ SCH (14:56)
[2023-03-15 15:00] LABS: ALBUMIN 3.8 G/DL (3.4-5.0); ANION GAP 9 (8-16); BLOOD UREA NITROGEN 35 MG/DL (7-18); BUN/CREATININE RATIO 22.6 (10.0-20.0); CALCIUM CVVH 8.1 MG/DL (8.5-10.1); CHLORIDE 103 MMOL/L (99-107); CREATININE 1.55 MG/DL (0.60-1.10); GLUCOSE 179 MG/DL (70-104); MAGNESIUM 2.2 MG/DL (1.5-2.4); PHOSPHORUS 3.3 MG/DL (2.3-4.5); POTASSIUM 4.9 MMOL/L (3.5-5.1); SODIUM 138 MMOL/L (135-145); TOTAL CARBON DIOXIDE 26.2 MMOL/L (24-32); eGFR 45 ML/MIN
[2023-03-15 15:50] LABS: ANISOCYTOSIS 1+; NUCLEATED RED BLOOD CELLS 1 /100WBC (0-0); PLATELET ESTIMATE DECREASED; TOTAL CELLS COUNTED 100
[2023-03-15 18:30] LABS: COCCIDIOIDES CF ANTIBODY <1:2 (<1:2)
[2023-03-15] MEDS: atorvastatin 10mg tablet OGT SCH (21:19)
[2023-03-15] MEDS: insulin glargine (Lantus) pen - multi-dose SQ SCH (21:25)
[2023-03-15 21:26] LABS: BASOPHILS % (AUTO) 0.1 % (0-1); EOSINOPHILS % (AUTO) 0 % (0-6); HEMOGLOBIN 7.5 g/dl (14.0-17.9)
[2023-03-15 21:27] LABS: HEMATOCRIT 23.3 % (42.0-52.0); LYMPHOCYTES # (AUTO) 0.5 X10'3 (1.1-4.8); LYMPHOCYTES % (AUTO) 4.3 % (21-51); MEAN CORPUSCULAR HEMOGLOBIN 28.3 PG (27.0-31.0); MEAN CORPUSCULAR VOLUME 88.3 FL (78-98); MEAN PLATELET VOLUME 9.8 FL (7.4-10.4); MONOCYTES # (AUTO) 1.1 X10'3 (0-0.9); MONOCYTES % (AUTO) 9.1 % (2-12); NEUTROPHILS % (AUTO) 86.5 % (42-75); PLATELET COUNT 76 X10'3 (140-440); RED BLOOD COUNT 2.64 X10'6 (4.70-6.10); RED CELL DISTRIBUTION WIDTH 16.5 % (11.5-14.5); WHITE BLOOD COUNT 12.7 X10'3 (4.5-11.0)
[2023-03-15 21:37] LABS: ALBUMIN 3.8 G/DL (3.4-5.0); ANION GAP 10 (8-16); BLOOD UREA NITROGEN 32 MG/DL (7-18); BUN/CREATININE RATIO 24.1 (10.0-20.0); CHLORIDE 104 MMOL/L (99-107); CREATININE 1.33 MG/DL (0.60-1.10); GLUCOSE 178 MG/DL (70-104); PHOSPHORUS 2.8 MG/DL (2.3-4.5); POTASSIUM 4.5 MMOL/L (3.5-5.1); SODIUM 139 MMOL/L (135-145); TOTAL CARBON DIOXIDE 25.4 MMOL/L (24-32); eGFR 54 ML/MIN
[2023-03-16] VITALS (46 sets, daily range): BP systolic 93–123; BP diastolic 47–74; PULSE 52–89; RESP 32–37; O2SAT 89–98
[2023-03-16] MEDS: mineral oil/petrolatum ophthal oint EACHEYE SCH ×4 (02:00→20:36)
[2023-03-16] MEDS: insulin regular, human U-100 3ml vial - multi-dose SQ SCH ×3 (02:23→20:41)
[2023-03-16 02:37] LABS: EOSINOPHILS % (AUTO) 0.1 % (0-6)
[2023-03-16 02:40] LABS: BASOPHILS % (AUTO) 0.2 % (0-1); HEMATOCRIT 23.6 % (42.0-52.0); HEMOGLOBIN 7.6 g/dl (14.0-17.9); LYMPHOCYTES # (AUTO) 0.6 X10'3 (1.1-4.8); LYMPHOCYTES % (AUTO) 5.5 % (21-51); MEAN CORPUSCULAR HEMOGLOBIN 28.4 PG (27.0-31.0); MEAN CORPUSCULAR HGB CONC 32.1 g/dL (33.0-36.5); MEAN CORPUSCULAR VOLUME 88.5 FL (78-98); MEAN PLATELET VOLUME 9.5 FL (7.4-10.4); MONOCYTES # (AUTO) 0.7 X10'3 (0-0.9); MONOCYTES % (AUTO) 6.3 % (2-12); NEUTROPHILS % (AUTO) 87.9 % (42-75); PLATELET COUNT 71 X10'3 (140-440); RED BLOOD COUNT 2.66 X10'6 (4.70-6.10); WHITE BLOOD COUNT 10.3 X10'3 (4.5-11.0)
[2023-03-16 02:43] LABS: APTT 33 SECONDS (22-32); INR 1.6 INR; PROTHROMBIN TIME 16.7 SECONDS (9.0-12.0)
[2023-03-16 03:02] LABS: ABG BASE EXCESS -0.3 mmol/L (-2.0-2.0); ABG HCO3 24.4 mmol/L (22.0-26.0); ABG OXYGEN SATURATION 96.5 % (94-97); ABG PCO2 (T) 37.7 mmHg (35.0-48.0); ABG PH (T) 7.423 (7.340-7.440); ABG PO2 (T) 83.2 mmHg (75.0-100.0); FCOHb 0.9 % (0.0-3.9); FHHb 3.5 % (0.0-5.0); FMetHb 0.3 % (0.0-1.5); FO2Hb 95.3 % (94-97); MODE VENT - P/C; PATIENT TEMPERATURE 35.7; PEEP 10 cm H2O; RESPIRATORY RATE 32 b/min; TOTAL HEMOGLOBIN 8.3 G/dl (14.0-17.9)
[2023-03-16] MEDS: Duosol 4K/3 Ca (w/calcium) 5,000 ML HE SCH ×12 (03:06→23:03)
[2023-03-16 03:13] LABS: ALANINE AMINOTRANSFERASE 416 U/L (12-78); ALBUMIN 3.7 G/DL (3.4-5.0); ALBUMIN/GLOBULIN RATIO 1.1 (1.1-1.5); ALKALINE PHOSPHATASE 129 IU/L (46-116); ANION GAP 6 (8-16); ASPARTATE AMINO TRANSFERASE 191 U/L (10-37); BILIRUBIN,TOTAL 1.5 MG/DL (0.1-1.0); BLOOD UREA NITROGEN 32 MG/DL (7-18); BUN/CREATININE RATIO 23.5 (10.0-20.0); CALCIUM 8.4 MG/DL (8.5-10.1); CHLORIDE 103 MMOL/L (99-107); CREATININE 1.36 MG/DL (0.60-1.10); GLUCOSE 188 MG/DL (70-104); MAGNESIUM 2.1 MG/DL (1.5-2.4); PHOSPHORUS 2.8 MG/DL (2.3-4.5); POTASSIUM 4.6 MMOL/L (3.5-5.1); PREALBUMIN 10.6 MG/DL (19-36); SODIUM 138 MMOL/L (135-145); TOTAL CARBON DIOXIDE 28.9 MMOL/L (24-32); TOTAL PROTEIN 7.2 G/DL (6.4-8.2); eCRCL 44 ML/MIN; eGFR 52 ML/MIN
[2023-03-16] MEDS: FENTANYL-0.9 % NACL/PF 100 ML IV PRN ×2 (04:00→15:26)
[2023-03-16] MEDS: sulfamethoxazole/trimethoprim 800/160mg per 20ml oral susp OGT SCH ×3 (05:31→22:58)
[2023-03-16] MEDS: ipratropium/albuterol 3ml nebule NEB SCH ×5 (07:02→23:13)
[2023-03-16] MEDS: heparin, porcine 5000 units/ml vial SQ SCH ×2 (08:00→20:00)
[2023-03-16] MEDS: sennosides/docusate sodium tablet OGT SCH ×2 (08:01→20:34)
[2023-03-16] MEDS: methylPREDNISolone sod succ/PF 40mg inj. IV SCH ×2 (08:01→20:35)
[2023-03-16] MEDS: aspirin 81mg tab.chew OGT SCH (08:01)
[2023-03-16] MEDS: pantoprazole 40MG/NS 100ML BAG 100 ML IV SCH ×2 (08:02→20:37)
[2023-03-16] MEDS: fluconazole-Diflucan 200mg/NS 100 ML IV SCH (08:20)
[2023-03-16] MEDS: albumin (human) 25% 100 ML IV solution IV SCH ×3 (09:24→23:55)
[2023-03-16 10:34] LABS: BASOPHILS % (AUTO) 0.2 % (0-1); EOSINOPHILS % (AUTO) 0 % (0-6); HEMATOCRIT 22.8 % (42.0-52.0); HEMOGLOBIN 7.2 g/dl (14.0-17.9); LYMPHOCYTES # (AUTO) 0.6 X10'3 (1.1-4.8); LYMPHOCYTES % (AUTO) 4.8 % (21-51); MEAN CORPUSCULAR HEMOGLOBIN 28.1 PG (27.0-31.0); MEAN CORPUSCULAR HGB CONC 31.5 g/dL (33.0-36.5); MEAN CORPUSCULAR VOLUME 89.2 FL (78-98); MEAN PLATELET VOLUME 9.8 FL (7.4-10.4); MONOCYTES # (AUTO) 0.8 X10'3 (0-0.9); MONOCYTES % (AUTO) 6.6 % (2-12); NEUTROPHILS # (AUTO) 10.4 X10'3 (1.8-7.7); NEUTROPHILS % (AUTO) 88.4 % (42-75); PLATELET COUNT 65 X10'3 (140-440); RED BLOOD COUNT 2.56 X10'6 (4.70-6.10); WHITE BLOOD COUNT 11.7 X10'3 (4.5-11.0)
[2023-03-16 10:50] LABS: ALBUMIN 3.1 G/DL (3.4-5.0); ANION GAP 2 (8-16); BLOOD UREA NITROGEN 30 MG/DL (7-18); BUN/CREATININE RATIO 20.4 (10.0-20.0); CALCIUM CVVH 7.6 MG/DL (8.5-10.1); CHLORIDE 104 MMOL/L (99-107); CREATININE 1.47 MG/DL (0.60-1.10); GLUCOSE 195 MG/DL (70-104); PHOSPHORUS 2.5 MG/DL (2.3-4.5); POTASSIUM 4.5 MMOL/L (3.5-5.1); SODIUM 136 MMOL/L (135-145); TOTAL CARBON DIOXIDE 29.6 MMOL/L (24-32); eGFR 48 ML/MIN
[2023-03-16 15:23] LABS: BASOPHILS % (AUTO) 0.2 % (0-1); EOSINOPHILS % (AUTO) 0 % (0-6); HEMATOCRIT 22.8 % (42.0-52.0); HEMOGLOBIN 7.3 g/dl (14.0-17.9); LYMPHOCYTES # (AUTO) 0.4 X10'3 (1.1-4.8); LYMPHOCYTES % (AUTO) 3.6 % (21-51); MEAN CORPUSCULAR HEMOGLOBIN 28.4 PG (27.0-31.0); MEAN CORPUSCULAR HGB CONC 31.9 g/dL (33.0-36.5); MEAN PLATELET VOLUME 9.4 FL (7.4-10.4); MONOCYTES # (AUTO) 0.5 X10'3 (0-0.9); MONOCYTES % (AUTO) 4.5 % (2-12); NEUTROPHILS # (AUTO) 10.9 X10'3 (1.8-7.7); NEUTROPHILS % (AUTO) 91.7 % (42-75); PLATELET COUNT 62 X10'3 (140-440); RED BLOOD COUNT 2.57 X10'6 (4.70-6.10); RED CELL DISTRIBUTION WIDTH 17.1 % (11.5-14.5); WHITE BLOOD COUNT 11.9 X10'3 (4.5-11.0)
[2023-03-16 15:36] LABS: ALBUMIN 3.5 G/DL (3.4-5.0); ANION GAP 6 (8-16); BLOOD UREA NITROGEN 33 MG/DL (7-18); CALCIUM CVVH 8.4 MG/DL (8.5-10.1); CHLORIDE 103 MMOL/L (99-107); CREATININE 1.32 MG/DL (0.60-1.10); GLUCOSE 201 MG/DL (70-104); MAGNESIUM 2.1 MG/DL (1.5-2.4); PHOSPHORUS 2.2 MG/DL (2.3-4.5); POTASSIUM 4.5 MMOL/L (3.5-5.1); SODIUM 137 MMOL/L (135-145); TOTAL CARBON DIOXIDE 28.1 MMOL/L (24-32); eGFR 54 ML/MIN
[2023-03-16 16:54] LABS: ANISOCYTOSIS 1+; NUCLEATED RED BLOOD CELLS 2 /100WBC (0-0); PLATELET ESTIMATE DECREASED; POLYCHROMASIA FEW; TOTAL CELLS COUNTED 100
[2023-03-16 16:55] LABS: BURR CELLS FEW; ELLIPTOCYTES FEW; STOMATOCYTES 1+
[2023-03-16 20:27] LABS: EOSINOPHILS % (AUTO) 0 % (0-6); HEMATOCRIT 22.6 % (42.0-52.0); HEMOGLOBIN 7.2 g/dl (14.0-17.9); LYMPHOCYTES # (AUTO) 0.5 X10'3 (1.1-4.8); WHITE BLOOD COUNT 12.6 X10'3 (4.5-11.0)
[2023-03-16 20:29] LABS: BASOPHILS # (AUTO) 0.1 X10'3 (0-0.2); BASOPHILS % (AUTO) 0.8 % (0-1); LYMPHOCYTES % (AUTO) 3.8 % (21-51); MEAN CORPUSCULAR HEMOGLOBIN 28.2 PG (27.0-31.0); MEAN CORPUSCULAR HGB CONC 31.9 g/dL (33.0-36.5); MEAN CORPUSCULAR VOLUME 88.5 FL (78-98); MEAN PLATELET VOLUME 9.6 FL (7.4-10.4); MONOCYTES # (AUTO) 0.7 X10'3 (0-0.9); MONOCYTES % (AUTO) 5.7 % (2-12); NEUTROPHILS # (AUTO) 11.3 X10'3 (1.8-7.7); NEUTROPHILS % (AUTO) 89.7 % (42-75); PLATELET COUNT 69 X10'3 (140-440); RED BLOOD COUNT 2.55 X10'6 (4.70-6.10); RED CELL DISTRIBUTION WIDTH 16.8 % (11.5-14.5)
[2023-03-16] MEDS: atorvastatin 10mg tablet OGT SCH (20:34)
[2023-03-16] MEDS: insulin glargine (Lantus) pen - multi-dose SQ SCH (20:42)
[2023-03-16 20:46] LABS: ALANINE AMINOTRANSFERASE 331 U/L (12-78); ALBUMIN 3.8 G/DL (3.4-5.0); ALBUMIN/GLOBULIN RATIO 1.3 (1.1-1.5); ALKALINE PHOSPHATASE 112 IU/L (46-116); ANION GAP 6 (8-16); ASPARTATE AMINO TRANSFERASE 150 U/L (10-37); BILIRUBIN,TOTAL 1.9 MG/DL (0.1-1.0); BLOOD UREA NITROGEN 30 MG/DL (7-18); BUN/CREATININE RATIO 23.1 (10.0-20.0); CALCIUM 8.1 MG/DL (8.5-10.1); CHLORIDE 103 MMOL/L (99-107); GLUCOSE 172 MG/DL (70-104); POTASSIUM 4.2 MMOL/L (3.5-5.1); SODIUM 135 MMOL/L (135-145); TOTAL CARBON DIOXIDE 26.2 MMOL/L (24-32); TOTAL PROTEIN 6.8 G/DL (6.4-8.2); eCRCL 46 ML/MIN; eGFR 55 ML/MIN
[2023-03-16 21:48] LABS: PHOSPHORUS 1.7 MG/DL (2.3-4.5)
[2023-03-16 22:03] LABS: ANISOCYTOSIS 1+; NUCLEATED RED BLOOD CELLS 4 /100WBC (0-0); PLATELET ESTIMATE DECREASED; TOTAL CELLS COUNTED 100
[2023-03-16 22:09] LABS: SCHISTOCYTES FEW
[2023-03-16 22:10] LABS: ELLIPTOCYTES FEW; POLYCHROMASIA FEW
[2023-03-16] MEDS: NORepinephrine inj. 32 MG in normal saline 250ml IV soln 218 ML IV SCH (23:45)
[2023-03-17] VITALS (52 sets, daily range): BP systolic 90–133; BP diastolic 48–72; PULSE 50–87; RESP 24–37; TEMP 96.9–97; O2SAT 90–97
[2023-03-17] MEDS: Duosol 4K/3 Ca (w/calcium) 5,000 ML HE SCH ×12 (00:25→23:49)
[2023-03-17] MEDS: insulin regular, human U-100 3ml vial - multi-dose SQ SCH ×4 (02:20→22:48)
[2023-03-17 02:48] LABS: EOSINOPHILS % (AUTO) 0 % (0-6); LYMPHOCYTES # (AUTO) 0.4 X10'3 (1.1-4.8); MONOCYTES # (AUTO) 0.5 X10'3 (0-0.9); PLATELET COUNT 64 X10'3 (140-440)
[2023-03-17 02:50] LABS: BASOPHILS % (AUTO) 0.1 % (0-1); LYMPHOCYTES % (AUTO) 3.7 % (21-51); MEAN CORPUSCULAR HEMOGLOBIN 28.6 PG (27.0-31.0); MEAN CORPUSCULAR HGB CONC 31.9 g/dL (33.0-36.5); MEAN CORPUSCULAR VOLUME 89.5 FL (78-98); MEAN PLATELET VOLUME 9.2 FL (7.4-10.4); MONOCYTES % (AUTO) 4.8 % (2-12); NEUTROPHILS # (AUTO) 9.8 X10'3 (1.8-7.7); NEUTROPHILS % (AUTO) 91.4 % (42-75); RED BLOOD COUNT 2.41 X10'6 (4.70-6.10); RED CELL DISTRIBUTION WIDTH 16.8 % (11.5-14.5); WHITE BLOOD COUNT 10.7 X10'3 (4.5-11.0)
[2023-03-17] MEDS: FENTANYL-0.9 % NACL/PF 100 ML IV PRN ×3 (02:50→17:54)
[2023-03-17 02:58] LABS: APTT 30 SECONDS (22-32); INR 1.8 INR; PROTHROMBIN TIME 18.6 SECONDS (9.0-12.0)
[2023-03-17] MEDS: mineral oil/petrolatum ophthal oint EACHEYE SCH ×4 (02:58→20:00)
[2023-03-17 03:01] LABS: ALANINE AMINOTRANSFERASE 295 U/L (12-78); ALBUMIN 4.1 G/DL (3.4-5.0); ALBUMIN/GLOBULIN RATIO 1.5 (1.1-1.5); ALKALINE PHOSPHATASE 117 IU/L (46-116); ANION GAP 10 (8-16); ASPARTATE AMINO TRANSFERASE 126 U/L (10-37); BILIRUBIN,TOTAL 2.4 MG/DL (0.1-1.0); BLOOD UREA NITROGEN 29 MG/DL (7-18); BUN/CREATININE RATIO 22.8 (10.0-20.0); CALCIUM 8.6 MG/DL (8.5-10.1); CHLORIDE 102 MMOL/L (99-107); CREATININE 1.27 MG/DL (0.60-1.10); GLUCOSE 188 MG/DL (70-104); POTASSIUM 4.4 MMOL/L (3.5-5.1); SODIUM 138 MMOL/L (135-145); TOTAL CARBON DIOXIDE 25.8 MMOL/L (24-32); TOTAL PROTEIN 6.9 G/DL (6.4-8.2); TRIGLYCERIDES 120 MG/DL (20-135); eCRCL 47 ML/MIN; eGFR 57 ML/MIN
[2023-03-17 03:02] LABS: HEMOGLOBIN 6.9 g/dl (14.0-17.9)
[2023-03-17 03:03] LABS: HEMATOCRIT 21.6 % (42.0-52.0)
[2023-03-17] MEDS: ipratropium/albuterol 3ml nebule NEB SCH ×6 (03:11→23:16)
[2023-03-17 03:33] LABS: ABG HCO3 25.1 mmol/L (22.0-26.0); ABG OXYGEN SATURATION 92.5 % (94-97); ABG PCO2 (T) 35.7 mmHg (35.0-48.0); ABG PO2 (T) 60.2 mmHg (75.0-100.0); FCOHb 1.2 % (0.0-3.9); FHHb 7.4 % (0.0-5.0); FMetHb 0.3 % (0.0-1.5); FO2Hb 91.1 % (94-97); MODE VENT - P/C; PEEP 10 cm H2O; RESPIRATORY RATE 32 b/min; TIDAL VOLUME 580 mL
[2023-03-17] MEDS: midazolam 100mg in NS 100ml 100 ML IV PRN (04:56)
[2023-03-17] MEDS: sulfamethoxazole/trimethoprim 800/160mg per 20ml oral susp OGT SCH ×3 (06:42→23:40)
[2023-03-17] MEDS: heparin, porcine 5000 units/ml vial SQ SCH ×2 (07:35→20:00)
[2023-03-17] MEDS: pantoprazole 40MG/NS 100ML BAG 100 ML IV SCH ×2 (07:44→20:00)
[2023-03-17] MEDS: aspirin 81mg tab.chew OGT SCH (07:45)
[2023-03-17] MEDS: sennosides/docusate sodium tablet OGT SCH ×2 (07:45→20:00)
[2023-03-17] MEDS: methylPREDNISolone sod succ/PF 40mg inj. IV SCH ×2 (07:45→20:00)
[2023-03-17] MEDS: fluconazole-Diflucan 200mg/NS 100 ML IV SCH (08:07)
[2023-03-17 09:02] LABS: BASOPHILS % (AUTO) 0.2 % (0-1); EOSINOPHILS % (AUTO) 0 % (0-6); HEMATOCRIT 24.2 % (42.0-52.0); HEMOGLOBIN 7.7 g/dl (14.0-17.9); LYMPHOCYTES # (AUTO) 0.5 X10'3 (1.1-4.8); LYMPHOCYTES % (AUTO) 4.1 % (21-51); MEAN CORPUSCULAR HEMOGLOBIN 28.7 PG (27.0-31.0); MEAN CORPUSCULAR HGB CONC 31.8 g/dL (33.0-36.5); MEAN CORPUSCULAR VOLUME 90.2 FL (78-98); MEAN PLATELET VOLUME 9.2 FL (7.4-10.4); MONOCYTES # (AUTO) 0.6 X10'3 (0-0.9); NEUTROPHILS # (AUTO) 10.5 X10'3 (1.8-7.7); NEUTROPHILS % (AUTO) 90.7 % (42-75); PLATELET COUNT 57 X10'3 (140-440); RED BLOOD COUNT 2.68 X10'6 (4.70-6.10); RED CELL DISTRIBUTION WIDTH 17.1 % (11.5-14.5); WHITE BLOOD COUNT 11.6 X10'3 (4.5-11.0)
[2023-03-17 09:04] LABS: ALANINE AMINOTRANSFERASE 277 U/L (12-78); ALBUMIN 3.6 G/DL (3.4-5.0); ALBUMIN/GLOBULIN RATIO 1.2 (1.1-1.5); ALKALINE PHOSPHATASE 116 IU/L (46-116); ANION GAP 8 (8-16); ASPARTATE AMINO TRANSFERASE 118 U/L (10-37); BILIRUBIN,TOTAL 2.5 MG/DL (0.1-1.0); BLOOD UREA NITROGEN 25 MG/DL (7-18); BUN/CREATININE RATIO 22.5 (10.0-20.0); CALCIUM 7.8 MG/DL (8.5-10.1); CHLORIDE 105 MMOL/L (99-107); CREATININE 1.11 MG/DL (0.60-1.10); GLUCOSE 151 MG/DL (70-104); SODIUM 139 MMOL/L (135-145); TOTAL CARBON DIOXIDE 25.6 MMOL/L (24-32); TOTAL PROTEIN 6.5 G/DL (6.4-8.2); eCRCL 54 ML/MIN; eGFR 66 ML/MIN
[2023-03-17] MEDS: albumin (human) 25% 100 ML IV solution IV SCH ×3 (09:11→23:41)
[2023-03-17] MEDS: EPOETIN ALFA-EPBX 20,000 UNIT/ML 1 ML MDV SQ ONE ×2 (10:29→10:33)
[2023-03-17 10:48] LABS: % IRON SATURATION 89 % (11-46); IRON 74 UG/DL (53-167); TOTAL IRON BINDING CAPACITY 83 UG/DL (259-388)
[2023-03-17 11:58] LABS: FERRITIN 2616 NG/ML (26-388)
[2023-03-17 15:14] LABS: BASOPHILS % (AUTO) 0.1 % (0-1); HEMATOCRIT 27.2 % (42.0-52.0); HEMOGLOBIN 8.6 g/dl (14.0-17.9); RED BLOOD COUNT 2.98 X10'6 (4.70-6.10)
[2023-03-17 15:16] LABS: EOSINOPHILS % (AUTO) 0 % (0-6); LYMPHOCYTES # (AUTO) 0.4 X10'3 (1.1-4.8); LYMPHOCYTES % (AUTO) 2.7 % (21-51); MEAN CORPUSCULAR HGB CONC 31.8 g/dL (33.0-36.5); MEAN CORPUSCULAR VOLUME 91.4 FL (78-98); MEAN PLATELET VOLUME 9.8 FL (7.4-10.4); MONOCYTES # (AUTO) 0.8 X10'3 (0-0.9); MONOCYTES % (AUTO) 5.2 % (2-12); NEUTROPHILS # (AUTO) 14.5 X10'3 (1.8-7.7); PLATELET COUNT 55 X10'3 (140-440); RED CELL DISTRIBUTION WIDTH 16.7 % (11.5-14.5); WHITE BLOOD COUNT 15.7 X10'3 (4.5-11.0)
[2023-03-17 15:38] LABS: ALANINE AMINOTRANSFERASE 288 U/L (12-78); ALBUMIN 4.1 G/DL (3.4-5.0); ALBUMIN/GLOBULIN RATIO 1.3 (1.1-1.5); ALKALINE PHOSPHATASE 127 IU/L (46-116); ANION GAP 6 (8-16); ASPARTATE AMINO TRANSFERASE 118 U/L (10-37); BILIRUBIN,TOTAL 2.4 MG/DL (0.1-1.0); BLOOD UREA NITROGEN 26 MG/DL (7-18); BUN/CREATININE RATIO 21.7 (10.0-20.0); CALCIUM 8.2 MG/DL (8.5-10.1); CHLORIDE 103 MMOL/L (99-107); POTASSIUM 4.7 MMOL/L (3.5-5.1); SODIUM 137 MMOL/L (135-145); TOTAL CARBON DIOXIDE 27.8 MMOL/L (24-32); TOTAL PROTEIN 7.3 G/DL (6.4-8.2); eCRCL 50 ML/MIN; eGFR 60 ML/MIN
[2023-03-17 15:39] LABS: GLUCOSE 156 MG/DL (70-104)
[2023-03-17] MEDS ORDERED: POTASSIUM BICARB 20meq eff tab 20 MEQ TABLET.EFF OGT PRN ×2 (15:56→15:57)
[2023-03-17] MEDS ORDERED: heparin 1,000 units/ml 10ml inj HE ONE ×2 (17:55)
[2023-03-17 18:08] LABS: ANISOCYTOSIS 1+; ELLIPTOCYTES FEW; HYPOCHROMASIA 2+; NUCLEATED RED BLOOD CELLS 4 /100WBC (0-0); PLATELET ESTIMATE DECREASED; SCHISTOCYTES FEW; TOTAL CELLS COUNTED 100
[2023-03-17 18:09] LABS: BURR CELLS 1+; POLYCHROMASIA 1+
[2023-03-17] MEDS: insulin glargine (Lantus) pen - multi-dose SQ SCH (21:00)
[2023-03-17] MEDS: atorvastatin 10mg tablet OGT SCH (21:00)
[2023-03-18] VITALS (64 sets, daily range): BP systolic 98–121; BP diastolic 54–73; PULSE 63–92; RESP 26–36; TEMP 98.2–101.2; O2SAT 92–98
[2023-03-18] MEDS: FENTANYL-0.9 % NACL/PF 100 ML IV PRN ×4 (00:59→23:21)
[2023-03-18] MEDS: Duosol 4K/3 Ca (w/calcium) 5,000 ML HE SCH ×3 (01:37→05:13)
[2023-03-18] MEDS: mineral oil/petrolatum ophthal oint EACHEYE SCH ×4 (02:00→20:05)
[2023-03-18 02:46] LABS: ALANINE AMINOTRANSFERASE 161 U/L (12-78); ALBUMIN 3.1 G/DL (3.4-5.0); ALBUMIN/GLOBULIN RATIO 1.6 (1.1-1.5); ALKALINE PHOSPHATASE 72 IU/L (46-116); ANION GAP 12 (8-16); ASPARTATE AMINO TRANSFERASE 65 U/L (10-37); BILIRUBIN,TOTAL 1.8 MG/DL (0.1-1.0); BLOOD UREA NITROGEN 30 MG/DL (7-18); BUN/CREATININE RATIO 28.6 (10.0-20.0); CHLORIDE 110 MMOL/L (99-107); CREATININE 1.05 MG/DL (0.60-1.10); GLUCOSE 65 MG/DL (70-104); POTASSIUM 3.4 MMOL/L (3.5-5.1); SODIUM 142 MMOL/L (135-145); eCRCL 57 ML/MIN; eGFR 70 ML/MIN
[2023-03-18] MEDS: ipratropium/albuterol 3ml nebule NEB SCH ×6 (02:54→22:54)
[2023-03-18 03:02] LABS: EOSINOPHILS % (AUTO) 0 % (0-6); MONOCYTES # (AUTO) 0.5 X10'3 (0-0.9); NEUTROPHILS # (AUTO) 8.9 X10'3 (1.8-7.7)
[2023-03-18 03:06] LABS: BASOPHILS % (AUTO) 0.2 % (0-1); LYMPHOCYTES # (AUTO) 0.5 X10'3 (1.1-4.8); LYMPHOCYTES % (AUTO) 5.5 % (21-51); MEAN CORPUSCULAR HEMOGLOBIN 29.5 PG (27.0-31.0); MEAN CORPUSCULAR HGB CONC 31.4 g/dL (33.0-36.5); MEAN PLATELET VOLUME 10.1 FL (7.4-10.4); MONOCYTES % (AUTO) 5.3 % (2-12); RED BLOOD COUNT 2.09 X10'6 (4.70-6.10); RED CELL DISTRIBUTION WIDTH 17.4 % (11.5-14.5)
[2023-03-18 03:09] LABS: CALCIUM 5.4 MG/DL (8.5-10.1)
[2023-03-18 03:13] LABS: ABG BASE EXCESS -2.9 mmol/L (-2.0-2.0); ABG HCO3 22.8 mmol/L (22.0-26.0); ABG OXYGEN SATURATION 92.9 % (94-97); ABG PCO2 (T) 41.8 mmHg (35.0-48.0); FCOHb 1.4 % (0.0-3.9); FMetHb 0.3 % (0.0-1.5); FO2Hb 91.3 % (94-97); MODE VENT - P/C; PATIENT TEMPERATURE 36.2; PEEP 10 cm H2O; RESPIRATORY RATE 32 b/min; TIDAL VOLUME 448 mL; TOTAL HEMOGLOBIN 9.1 G/dl (14.0-17.9)
[2023-03-18 03:36] LABS: HEMOGLOBIN 6.2 g/dl (14.0-17.9)
[2023-03-18 03:37] LABS: HEMATOCRIT 19.6 % (42.0-52.0); PLATELET COUNT 40 X10'3 (140-440)
[2023-03-18] MEDS ORDERED: calcium gluconate inj. 2 GM in normal saline 100ml IV soln 100 ML IV ONE (03:50)
[2023-03-18] MEDS ORDERED: CALCIUM GLUC 1gm/50ml NACL,iso 50 ML IV ONE ×2 (04:05→04:35)
[2023-03-18] MEDS: midazolam 100mg in NS 100ml 100 ML IV PRN (04:52)
[2023-03-18] MEDS: sulfamethoxazole/trimethoprim 800/160mg per 20ml oral susp OGT SCH ×3 (04:53→21:51)
[2023-03-18 06:12] LABS: APTT 32 SECONDS (22-32); INR 1.7 INR; PROTHROMBIN TIME 17.9 SECONDS (9.0-12.0)
[2023-03-18] MEDS: heparin, porcine 5000 units/ml vial SQ SCH ×2 (08:00→20:00)
[2023-03-18] MEDS: dextrose 50%-water 50ml dispensing syringe IV PRN ×2 (08:07→08:51)
[2023-03-18] MEDS: pantoprazole 40MG/NS 100ML BAG 100 ML IV SCH ×4 (08:10→20:06)
[2023-03-18] MEDS: methylPREDNISolone sod succ/PF 40mg inj. IV SCH ×2 (08:14→20:03)
[2023-03-18] MEDS: aspirin 81mg tab.chew OGT SCH (08:14)
[2023-03-18] MEDS: sennosides/docusate sodium tablet OGT SCH ×2 (08:14→20:05)
[2023-03-18] MEDS: albumin (human) 25% 100 ML IV solution IV SCH (08:35)
[2023-03-18] MEDS: fluconazole-Diflucan 200mg/NS 100 ML IV SCH (08:56)
[2023-03-18] MEDS ORDERED: Dextrose 10%-water IV solution 1,000 ML IV PRN (12:40)
[2023-03-18 13:42] LABS: ALANINE AMINOTRANSFERASE 186 U/L (12-78); ALBUMIN/GLOBULIN RATIO 1.5 (1.1-1.5); ALKALINE PHOSPHATASE 96 IU/L (46-116); ANION GAP 11 (8-16); ASPARTATE AMINO TRANSFERASE 80 U/L (10-37); BILIRUBIN,TOTAL 3.5 MG/DL (0.1-1.0); BLOOD UREA NITROGEN 55 MG/DL (7-18); BUN/CREATININE RATIO 26.6 (10.0-20.0); CALCIUM 7.5 MG/DL (8.5-10.1); CHLORIDE 104 MMOL/L (99-107); CREATININE 2.07 MG/DL (0.60-1.10); GLUCOSE 178 MG/DL (70-104); MAGNESIUM 2.2 MG/DL (1.5-2.4); POTASSIUM 5.5 MMOL/L (3.5-5.1); SODIUM 138 MMOL/L (135-145); TOTAL CARBON DIOXIDE 23.2 MMOL/L (24-32); TOTAL PROTEIN 6.7 G/DL (6.4-8.2); TRIGLYCERIDES 77 MG/DL (20-135); eCRCL 29 ML/MIN; eGFR 32 ML/MIN
[2023-03-18 13:59] LABS: PREALBUMIN 13.9 MG/DL (19-36)
[2023-03-18] MEDS ORDERED: EPOETIN ALFA-EPBX 20,000 UNIT/ML 1 ML MDV IV ONE (14:50)
[2023-03-18] MEDS ORDERED: albumin (Human) 5% 250ml 250 ML IV PRN (14:50)
[2023-03-18] MEDS ORDERED: heparin 1,000 units/ml 10ml inj HE ONE ×2 (14:55)
[2023-03-18] MEDS: acetaminophen 325mg/10.15ml oral unit dose solution OGT PRN (16:05)
[2023-03-18] MEDS: fat emulsion 20% IV 100 ML IV SCH (20:04)
[2023-03-18] MEDS: ZINC/COPPER/MANGANESE/SELENIUM 1 ML, chromic chloride inj. 10 MCG in AA 5%/CALCIUM/LYTE... IV SCH (20:04)
[2023-03-18] MEDS: insulin regular, human U-100 3ml vial - multi-dose SQ SCH (21:05)
[2023-03-18] MEDS: insulin glargine (Lantus) pen - multi-dose SQ SCH (21:06)
[2023-03-18] MEDS: atorvastatin 10mg tablet OGT SCH (21:51)
[2023-03-18] MEDS: acetaminophen 1,000mg/100ml IV 100 ML IV PRN (23:01)
[2023-03-19] VITALS (48 sets, daily range): BP systolic 99–115; BP diastolic 51–68; PULSE 75–85; RESP 26–37; O2SAT 91–99
[2023-03-19] MEDS: albumin (human) 25% 100 ML IV solution IV SCH (00:28)
[2023-03-19] MEDS: insulin regular, human U-100 3ml vial - multi-dose SQ SCH ×4 (02:21→21:21)
[2023-03-19] MEDS: mineral oil/petrolatum ophthal oint EACHEYE SCH ×4 (02:23→20:45)
[2023-03-19] MEDS: pantoprazole 40MG/NS 100ML BAG 100 ML IV SCH ×5 (02:38→21:25)
[2023-03-19] MEDS: ipratropium/albuterol 3ml nebule NEB SCH ×6 (02:57→23:17)
[2023-03-19 03:11] LABS: EOSINOPHILS % (AUTO) 0 % (0-6); LYMPHOCYTES # (AUTO) 0.2 X10'3 (1.1-4.8); LYMPHOCYTES % (AUTO) 2.1 % (21-51); PLATELET COUNT 80 X10'3 (140-440)
[2023-03-19 03:12] LABS: BASOPHILS # (AUTO) 0.1 X10'3 (0-0.2); BASOPHILS % (AUTO) 0.5 % (0-1); HEMATOCRIT 27.7 % (42.0-52.0); MEAN CORPUSCULAR HEMOGLOBIN 30.4 PG (27.0-31.0); MEAN CORPUSCULAR HGB CONC 32.6 g/dL (33.0-36.5); MEAN CORPUSCULAR VOLUME 93.3 FL (78-98); MEAN PLATELET VOLUME 9.2 FL (7.4-10.4); MONOCYTES # (AUTO) 0.5 X10'3 (0-0.9); MONOCYTES % (AUTO) 4.5 % (2-12); NEUTROPHILS # (AUTO) 10.4 X10'3 (1.8-7.7); NEUTROPHILS % (AUTO) 92.9 % (42-75); RED BLOOD COUNT 2.97 X10'6 (4.70-6.10); RED CELL DISTRIBUTION WIDTH 19.4 % (11.5-14.5); WHITE BLOOD COUNT 11.2 X10'3 (4.5-11.0)
[2023-03-19 03:17] LABS: ABG BASE EXCESS -3.4 mmol/L (-2.0-2.0); ABG HCO3 23.2 mmol/L (22.0-26.0); ABG OXYGEN SATURATION 93.4 % (94-97); ABG PH (T) 7.288 (7.340-7.440); FCOHb 1.7 % (0.0-3.9); FHHb 6.5 % (0.0-5.0); FO2Hb 91.8 % (94-97); MODE VENT - P/C; PATIENT TEMPERATURE 37.7; PEEP 10 cm H2O; RESPIRATORY RATE 32 b/min; TIDAL VOLUME 475 mL; TOTAL HEMOGLOBIN 10.9 G/dl (14.0-17.9)
[2023-03-19 03:21] LABS: APTT 41 SECONDS (22-32); INR 1.8 INR; PROTHROMBIN TIME 18.9 SECONDS (9.0-12.0)
[2023-03-19 03:24] LABS: ALBUMIN 6.3 G/DL (3.4-5.0); ALKALINE PHOSPHATASE 74 IU/L (46-116); BLOOD UREA NITROGEN 49 MG/DL (7-18); BUN/CREATININE RATIO 26.6 (10.0-20.0); CREATININE 1.84 MG/DL (0.60-1.10); TOTAL CARBON DIOXIDE 21.6 MMOL/L (24-32); eCRCL 33 ML/MIN; eGFR 37 ML/MIN
[2023-03-19 04:04] LABS: ALANINE AMINOTRANSFERASE 137 U/L (12-78); ALBUMIN/GLOBULIN RATIO 2.9 (1.1-1.5); ANION GAP 18 (8-16); BILIRUBIN,TOTAL 2.1 MG/DL (0.1-1.0); CHLORIDE 94 MMOL/L (99-107); PHOSPHORUS 5.1 MG/DL (2.3-4.5); POTASSIUM 4.5 MMOL/L (3.5-5.1); SODIUM 134 MMOL/L (135-145); TOTAL PROTEIN 8.5 G/DL (6.4-8.2)
[2023-03-19] MEDS: midazolam 100mg in NS 100ml 100 ML IV PRN (04:05)
[2023-03-19 04:17] LABS: ASPARTATE AMINO TRANSFERASE 46 U/L (10-37)
[2023-03-19 04:23] LABS: CALCIUM 5.3 MG/DL (8.5-10.1); GLUCOSE 516 MG/DL (70-104)
[2023-03-19] MEDS ORDERED: calcium gluconate inj. 2 GM in normal saline 100ml IV soln 100 ML IV ONE (04:30)
[2023-03-19] MEDS ORDERED: CALCIUM GLUC 1gm/50ml NACL,iso 50 ML IV ONE ×2 (04:50→05:20)
[2023-03-19] MEDS: sulfamethoxazole/trimethoprim 800/160mg per 20ml oral susp OGT SCH ×3 (05:03→22:32)
[2023-03-19] MEDS: heparin, porcine 5000 units/ml vial SQ SCH ×2 (07:12→20:00)
[2023-03-19] MEDS: sennosides/docusate sodium tablet OGT SCH ×2 (07:26→20:43)
[2023-03-19] MEDS: fluconazole-Diflucan 200mg/NS 100 ML IV SCH (07:26)
[2023-03-19] MEDS: methylPREDNISolone sod succ/PF 40mg inj. IV SCH ×2 (07:26→20:43)
[2023-03-19] MEDS: aspirin 81mg tab.chew OGT SCH (07:26)
[2023-03-19 07:51] LABS: NUCLEATED RED BLOOD CELLS 4 /100WBC (0-0); TOTAL CELLS COUNTED 100
[2023-03-19 07:53] LABS: ANISOCYTOSIS 2+; ELLIPTOCYTES FEW; LARGE PLATELETS FEW; PLATELET ESTIMATE DECREASED
[2023-03-19 07:54] LABS: BURR CELLS FEW; POLYCHROMASIA FEW
[2023-03-19] MEDS: FENTANYL-0.9 % NACL/PF 100 ML IV PRN ×2 (13:29→20:43)
[2023-03-19] MEDS: atorvastatin 10mg tablet OGT SCH (20:44)
[2023-03-19] MEDS: fat emulsion 20% IV 100 ML IV SCH (20:44)
[2023-03-19] MEDS: insulin glargine (Lantus) pen - multi-dose SQ SCH (21:22)
[2023-03-20] VITALS (58 sets, daily range): BP systolic 80–112; BP diastolic 45–67; PULSE 77–100; RESP 24–37; TEMP 97.7–98.6; O2SAT 88–96
[2023-03-20] MEDS: FENTANYL-0.9 % NACL/PF 100 ML IV PRN ×4 (02:20→22:18)
[2023-03-20] MEDS: pantoprazole 40MG/NS 100ML BAG 100 ML IV SCH ×5 (02:20→22:08)
[2023-03-20] MEDS: mineral oil/petrolatum ophthal oint EACHEYE SCH ×4 (02:21→20:00)
[2023-03-20] MEDS: ZINC/COPPER/MANGANESE/SELENIUM 1 ML, chromic chloride inj. 10 MCG in AA 5%/CALCIUM/LYTE... IV SCH (02:21)
[2023-03-20] MEDS: insulin regular, human U-100 3ml vial - multi-dose SQ SCH (02:32)
[2023-03-20] MEDS: ipratropium/albuterol 3ml nebule NEB SCH ×6 (02:48→22:57)
[2023-03-20 03:15] LABS: APTT 32 SECONDS (22-32); INR 1.7 INR; PROTHROMBIN TIME 17.7 SECONDS (9.0-12.0)
[2023-03-20 03:16] LABS: ABG BASE EXCESS -8.8 mmol/L (-2.0-2.0); ABG HCO3 17.8 mmol/L (22.0-26.0); ABG OXYGEN SATURATION 93.8 % (94-97); ABG PCO2 (T) 41.8 mmHg (35.0-48.0); ABG PH (T) 7.249 (7.340-7.440); ABG PO2 (T) 76.1 mmHg (75.0-100.0); FCOHb 1.6 % (0.0-3.9); FHHb 6.1 % (0.0-5.0); FMetHb 0.3 % (0.0-1.5); MODE VENT - P/C; PATIENT TEMPERATURE 37.3; PEEP 10 cm H2O; RESPIRATORY RATE 32 b/min; TOTAL HEMOGLOBIN 10.7 G/dl (14.0-17.9)
[2023-03-20 03:16] LABS: EOSINOPHILS % (AUTO) 0 % (0-6); HEMOGLOBIN 9.5 g/dl (14.0-17.9)
[2023-03-20 03:19] LABS: BASOPHILS % (AUTO) 0.2 % (0-1); HEMATOCRIT 29.7 % (42.0-52.0); LYMPHOCYTES # (AUTO) 0.1 X10'3 (1.1-4.8); LYMPHOCYTES % (AUTO) 1.4 % (21-51); MEAN CORPUSCULAR HEMOGLOBIN 29.7 PG (27.0-31.0); MEAN CORPUSCULAR HGB CONC 32.1 g/dL (33.0-36.5); MEAN CORPUSCULAR VOLUME 92.6 FL (78-98); MONOCYTES # (AUTO) 0.6 X10'3 (0-0.9); MONOCYTES % (AUTO) 5.8 % (2-12); NEUTROPHILS # (AUTO) 9.4 X10'3 (1.8-7.7); NEUTROPHILS % (AUTO) 92.6 % (42-75); PLATELET COUNT 88 X10'3 (140-440); RED BLOOD COUNT 3.21 X10'6 (4.70-6.10); RED CELL DISTRIBUTION WIDTH 19.3 % (11.5-14.5); WHITE BLOOD COUNT 10.1 X10'3 (4.5-11.0)
[2023-03-20 03:21] LABS: ALANINE AMINOTRANSFERASE 133 U/L (12-78); ALBUMIN 3.3 G/DL (3.4-5.0); ALBUMIN/GLOBULIN RATIO 1.3 (1.1-1.5); ALKALINE PHOSPHATASE 87 IU/L (46-116); ANION GAP 11 (8-16); ASPARTATE AMINO TRANSFERASE 56 U/L (10-37); BILIRUBIN,TOTAL 1.6 MG/DL (0.1-1.0); BLOOD UREA NITROGEN 102 MG/DL (7-18); BUN/CREATININE RATIO 32.9 (10.0-20.0); CALCIUM 7.6 MG/DL (8.5-10.1); CHLORIDE 101 MMOL/L (99-107); MAGNESIUM 2.6 MG/DL (1.5-2.4); PHOSPHORUS 5.4 MG/DL (2.3-4.5); POTASSIUM 5.4 MMOL/L (3.5-5.1); SODIUM 134 MMOL/L (135-145); TOTAL CARBON DIOXIDE 21.7 MMOL/L (24-32); TOTAL PROTEIN 5.8 G/DL (6.4-8.2); eCRCL 19 ML/MIN; eGFR 20 ML/MIN
[2023-03-20 03:28] LABS: GLUCOSE 402 MG/DL (70-104)
[2023-03-20 03:44] LABS: PREALBUMIN 14.7 MG/DL (19-36)
[2023-03-20] MEDS: sulfamethoxazole/trimethoprim 800/160mg per 20ml oral susp OGT SCH ×3 (05:16→22:09)
[2023-03-20] MEDS: heparin, porcine 5000 units/ml vial SQ SCH ×2 (07:05→20:00)
[2023-03-20] MEDS: methylPREDNISolone sod succ/PF 40mg inj. IV SCH ×2 (07:12→22:07)
[2023-03-20] MEDS: fluconazole-Diflucan 200mg/NS 100 ML IV SCH (07:12)
[2023-03-20] MEDS: sennosides/docusate sodium tablet OGT SCH ×2 (07:12→22:06)
[2023-03-20] MEDS: aspirin 81mg tab.chew OGT SCH (07:25)
[2023-03-20] MEDS: EPOETIN ALFA-EPBX 20,000 UNIT/ML 1 ML MDV SQ SCH (07:42)
[2023-03-20] MEDS ORDERED: dextrose 50%-water 50ml dispensing syringe IV PRN (08:20)
[2023-03-20] MEDS ORDERED: insulin Lispro (HumaLOG) vial - multi-dose SQ PRN (08:20)
[2023-03-20] MEDS: Insulin Reg/NS 100units/100mL 100 ML IV SCH ×3 (09:19→20:17)
[2023-03-20] MEDS ORDERED: insulin Lispro (HumaLOG) vial - multi-dose SQ SCH (10:15)
[2023-03-20] MEDS: insulin Lispro (HumaLOG) vial - multi-dose SQ PRN ×6 (10:36→18:09)
[2023-03-20] MEDS: CHROMIC CHLORIDE IV SCH (13:17)
[2023-03-20] MEDS: MANGANESE IV SCH (13:17)
[2023-03-20] MEDS: ZINC IV SCH (13:17)
[2023-03-20] MEDS: SELENIUM IV SCH (13:17)
[2023-03-20] MEDS: COPPER IV SCH (13:17)
[2023-03-20] MEDS: [UNRECOGNIZED DRUG - OTHER] IV SCH (13:17)
[2023-03-20] MEDS ORDERED: heparin 1,000unit/ml 10ml vial 10 ML IV ONE (13:55)
[2023-03-20] MEDS ORDERED: EPOETIN ALFA-EPBX 20,000 UNIT/ML 1 ML MDV IV ONE (13:55)
[2023-03-20] MEDS ORDERED: normal saline 1000ml 250 ML IV PRN (13:55)
[2023-03-20] MEDS ORDERED: heparin 1,000 units/ml 10ml inj HE ONE ×2 (14:00)
[2023-03-20] MEDS ORDERED: INSULIN REGULAR IV SCH ×4 (16:38)
[2023-03-20] MEDS ORDERED: [UNRECOGNIZED DRUG - OTHER] IV SCH ×4 (16:38)
[2023-03-20] MEDS ORDERED: SELENIUM IV SCH ×5 (16:38→17:00)
[2023-03-20] MEDS ORDERED: MANGANESE IV SCH ×5 (16:38→17:00)
[2023-03-20] MEDS ORDERED: CHROMIC CHLORIDE IV SCH ×5 (16:38→17:00)
[2023-03-20] MEDS ORDERED: ZINC IV SCH ×5 (16:38→17:00)
[2023-03-20] MEDS ORDERED: COPPER IV SCH ×5 (16:38→17:00)
[2023-03-20] MEDS ORDERED: [UNRECOGNIZED DRUG - OTHER] IV SCH (17:00)
[2023-03-20] MEDS ORDERED: albumin (Human) 5% 250ml 250 ML IV ONE (17:35)
[2023-03-20] MEDS ORDERED: NORepinephrine 8mg/ 250ml NS 250 ML IV ONE (19:06)
[2023-03-20] MEDS: NORepinephrine 8mg/ 250ml NS 250 ML IV SCH (19:09)
[2023-03-20] MEDS: atorvastatin 10mg tablet OGT SCH (22:07)
[2023-03-20] MEDS: fat emulsion 20% IV 100 ML IV SCH (22:09)
[2023-03-21] VITALS (46 sets, daily range): BP systolic 95–119; BP diastolic 52–69; PULSE 72–96; RESP 18–35; O2SAT 92–98
[2023-03-21] MEDS: mineral oil/petrolatum ophthal oint EACHEYE SCH ×4 (02:23→20:00)
[2023-03-21 02:46] LABS: EOSINOPHILS % (AUTO) 0 % (0-6); MEAN PLATELET VOLUME 8.4 FL (7.4-10.4); MONOCYTES # (AUTO) 1.1 X10'3 (0-0.9)
[2023-03-21 02:48] LABS: BASOPHILS % (AUTO) 0.1 % (0-1); HEMATOCRIT 29.3 % (42.0-52.0); HEMOGLOBIN 9.2 g/dl (14.0-17.9); LYMPHOCYTES # (AUTO) 0.1 X10'3 (1.1-4.8); LYMPHOCYTES % (AUTO) 1.1 % (21-51); MEAN CORPUSCULAR HEMOGLOBIN 29.6 PG (27.0-31.0); MEAN CORPUSCULAR HGB CONC 31.5 g/dL (33.0-36.5); MEAN CORPUSCULAR VOLUME 94.1 FL (78-98); MONOCYTES % (AUTO) 8.8 % (2-12); NEUTROPHILS # (AUTO) 11.7 X10'3 (1.8-7.7); PLATELET COUNT 106 X10'3 (140-440); RED BLOOD COUNT 3.12 X10'6 (4.70-6.10); RED CELL DISTRIBUTION WIDTH 19.6 % (11.5-14.5)
[2023-03-21 02:56] LABS: APTT 29 SECONDS (22-32); INR 1.5 INR; PROTHROMBIN TIME 15.8 SECONDS (9.0-12.0)
[2023-03-21 02:59] LABS: ALANINE AMINOTRANSFERASE 129 U/L (12-78); ALBUMIN 3.4 G/DL (3.4-5.0); ALBUMIN/GLOBULIN RATIO 1.2 (1.1-1.5); ALKALINE PHOSPHATASE 91 IU/L (46-116); ANION GAP 8 (8-16); ASPARTATE AMINO TRANSFERASE 65 U/L (10-37); BLOOD UREA NITROGEN 57 MG/DL (7-18); BUN/CREATININE RATIO 29.4 (10.0-20.0); CALCIUM 7.1 MG/DL (8.5-10.1); CHLORIDE 104 MMOL/L (99-107); CREATININE 1.94 MG/DL (0.60-1.10); GLUCOSE 157 MG/DL (70-104); SODIUM 137 MMOL/L (135-145); TOTAL CARBON DIOXIDE 25.2 MMOL/L (24-32); TOTAL PROTEIN 6.2 G/DL (6.4-8.2); eCRCL 31 ML/MIN; eGFR 35 ML/MIN
[2023-03-21] MEDS: ipratropium/albuterol 3ml nebule NEB SCH ×6 (03:05→23:05)
[2023-03-21 03:29] LABS: ABG BASE EXCESS -3.6 mmol/L (-2.0-2.0); ABG HCO3 25.4 mmol/L (22.0-26.0); ABG OXYGEN SATURATION 94.8 % (94-97); ABG PCO2 (T) 67.3 mmHg (35.0-48.0); ABG PH (T) 7.193 (7.340-7.440); ABG PO2 (T) 79.7 mmHg (75.0-100.0); FCOHb 1.8 % (0.0-3.9); FHHb 5.1 % (0.0-5.0); FO2Hb 93.1 % (94-97); MODE VENT - P/C; PATIENT TEMPERATURE 36.9; PEEP 10 cm H2O; RESPIRATORY RATE 32 b/min; TIDAL VOLUME 406 mL; TOTAL HEMOGLOBIN 10.7 G/dl (14.0-17.9)
[2023-03-21] MEDS: pantoprazole 40MG/NS 100ML BAG 100 ML IV SCH ×5 (03:30→20:57)
[2023-03-21 03:59] LABS: NUCLEATED RED BLOOD CELLS 3 /100WBC (0-0); TOTAL CELLS COUNTED 100
[2023-03-21 04:00] LABS: ANISOCYTOSIS 2+; BURR CELLS 1+; ELLIPTOCYTES FEW; PLATELET ESTIMATE DECREASED; POLYCHROMASIA FEW
[2023-03-21] MEDS: sulfamethoxazole/trimethoprim 800/160mg per 20ml oral susp OGT SCH ×3 (05:49→21:00)
[2023-03-21] MEDS: COPPER IV SCH ×2 (05:49→22:37)
[2023-03-21] MEDS: [UNRECOGNIZED DRUG - OTHER] IV SCH ×2 (05:49→22:37)
[2023-03-21] MEDS: MANGANESE IV SCH ×2 (05:49→22:37)
[2023-03-21] MEDS: SELENIUM IV SCH ×2 (05:49→22:37)
[2023-03-21] MEDS: ZINC IV SCH ×2 (05:49→22:37)
[2023-03-21] MEDS: CHROMIC CHLORIDE IV SCH ×2 (05:49→22:37)
[2023-03-21] MEDS: dextrose 50%-water 50ml dispensing syringe IV PRN ×4 (06:10→18:03)
[2023-03-21] MEDS: methylPREDNISolone sod succ/PF 40mg inj. IV SCH (07:34)
[2023-03-21] MEDS: fluconazole-Diflucan 200mg/NS 100 ML IV SCH (07:34)
[2023-03-21] MEDS: sennosides/docusate sodium tablet OGT SCH ×2 (07:34→20:59)
[2023-03-21] MEDS: aspirin 81mg tab.chew OGT SCH (07:34)
[2023-03-21] MEDS ORDERED: MVI, adult No.4 with vit. K 10 ML in dextrose 5% water 500ml 500 ML IV SCH ×2 (08:00)
[2023-03-21] MEDS: heparin, porcine 5000 units/ml vial SQ SCH ×2 (08:00→20:00)
[2023-03-21] MEDS: Insulin Reg/NS 100units/100mL 100 ML IV SCH ×2 (12:09→19:24)
[2023-03-21] MEDS: FENTANYL-0.9 % NACL/PF 100 ML IV PRN ×2 (12:51→20:12)
[2023-03-21] MEDS: NORepinephrine 8mg/ 250ml NS 250 ML IV SCH (12:51)
[2023-03-21] MEDS: midazolam 100mg in NS 100ml 100 ML IV PRN (20:58)
[2023-03-21] MEDS: fat emulsion 20% IV 100 ML IV SCH (20:58)
[2023-03-21] MEDS: atorvastatin 10mg tablet OGT SCH (21:00)
[2023-03-22] VITALS (42 sets, daily range): BP systolic 96–113; BP diastolic 46–64; PULSE 59–85; RESP 19–34; O2SAT 76–97
[2023-03-22] MEDS: Insulin Reg/NS 100units/100mL 100 ML IV SCH ×5 (00:24→19:29)
[2023-03-22] MEDS: insulin Lispro (HumaLOG) vial - multi-dose SQ PRN (01:22)
[2023-03-22] MEDS: mineral oil/petrolatum ophthal oint EACHEYE SCH ×4 (02:22→20:00)
[2023-03-22] MEDS: pantoprazole 40MG/NS 100ML BAG 100 ML IV SCH ×5 (02:22→19:24)
[2023-03-22] MEDS: FENTANYL-0.9 % NACL/PF 100 ML IV PRN ×4 (02:37→19:46)
[2023-03-22 02:47] LABS: BASOPHILS % (AUTO) 0.6 % (0-1); EOSINOPHILS % (AUTO) 0 % (0-6); HEMATOCRIT 27.2 % (42.0-52.0); HEMOGLOBIN 8.7 g/dl (14.0-17.9); LYMPHOCYTES # (AUTO) 0.1 X10'3 (1.1-4.8); LYMPHOCYTES % (AUTO) 1.8 % (21-51); MEAN CORPUSCULAR HEMOGLOBIN 30.8 PG (27.0-31.0); MEAN CORPUSCULAR HGB CONC 32.1 g/dL (33.0-36.5); MEAN CORPUSCULAR VOLUME 95.8 FL (78-98); MEAN PLATELET VOLUME 8.9 FL (7.4-10.4); MONOCYTES # (AUTO) 0.8 X10'3 (0-0.9); MONOCYTES % (AUTO) 9.2 % (2-12); NEUTROPHILS # (AUTO) 7.2 X10'3 (1.8-7.7); NEUTROPHILS % (AUTO) 88.4 % (42-75); PLATELET COUNT 89 X10'3 (140-440); RED BLOOD COUNT 2.84 X10'6 (4.70-6.10); WHITE BLOOD COUNT 8.2 X10'3 (4.5-11.0)
[2023-03-22 02:58] LABS: APTT 31 SECONDS (22-32); INR 1.4 INR; PROTHROMBIN TIME 15.1 SECONDS (9.0-12.0)
[2023-03-22 03:00] LABS: ALANINE AMINOTRANSFERASE 104 U/L (12-78); ALBUMIN 2.8 G/DL (3.4-5.0); ALKALINE PHOSPHATASE 81 IU/L (46-116); ANION GAP 8 (8-16); ASPARTATE AMINO TRANSFERASE 48 U/L (10-37); BILIRUBIN,TOTAL 1.7 MG/DL (0.1-1.0); BLOOD UREA NITROGEN 87 MG/DL (7-18); BUN/CREATININE RATIO 33.3 (10.0-20.0); CALCIUM 6.8 MG/DL (8.5-10.1); CHLORIDE 101 MMOL/L (99-107); CREATININE 2.61 MG/DL (0.60-1.10); POTASSIUM 5.2 MMOL/L (3.5-5.1); SODIUM 131 MMOL/L (135-145); TOTAL CARBON DIOXIDE 21.9 MMOL/L (24-32); TOTAL PROTEIN 5.5 G/DL (6.4-8.2); eCRCL 23 ML/MIN; eGFR 25 ML/MIN
[2023-03-22] MEDS: ipratropium/albuterol 3ml nebule NEB SCH ×6 (03:00→23:18)
[2023-03-22 03:01] LABS: GLUCOSE 178 MG/DL (70-104)
[2023-03-22 03:45] LABS: ABG BASE EXCESS -6.7 mmol/L (-2.0-2.0); ABG HCO3 20.6 mmol/L (22.0-26.0); ABG PCO2 (T) 48.7 mmHg (35.0-48.0); ABG PH (T) 7.243 (7.340-7.440); ABG PO2 (T) 58.6 mmHg (75.0-100.0); FCOHb 2.1 % (0.0-3.9); FHHb 12.7 % (0.0-5.0); FMetHb 0.3 % (0.0-1.5); FO2Hb 84.9 % (94-97); MODE VENT - P/C; PATIENT TEMPERATURE 36.7; PEEP 10 cm H2O; RESPIRATORY RATE 32 b/min; TIDAL VOLUME 361 mL; TOTAL HEMOGLOBIN 10.2 G/dl (14.0-17.9)
[2023-03-22 04:23] LABS: ANISOCYTOSIS 3+; BURR CELLS 1+; ELLIPTOCYTES FEW; NUCLEATED RED BLOOD CELLS 1 /100WBC (0-0); PLATELET ESTIMATE DECREASED; POLYCHROMASIA FEW; TOTAL CELLS COUNTED 100
[2023-03-22 04:24] LABS: SCHISTOCYTES FEW; TEAR DROP CELLS FEW
[2023-03-22] MEDS: NORepinephrine 8mg/ 250ml NS 250 ML IV SCH ×2 (05:17→22:23)
[2023-03-22] MEDS: sulfamethoxazole/trimethoprim 800/160mg per 20ml oral susp OGT SCH ×2 (06:00→14:00)
[2023-03-22] MEDS: heparin, porcine 5000 units/ml vial SQ SCH ×2 (08:00→21:33)
[2023-03-22] MEDS: EPOETIN ALFA-EPBX 20,000 UNIT/ML 1 ML MDV SQ SCH (08:00)
[2023-03-22] MEDS: sennosides/docusate sodium tablet OGT SCH ×2 (08:07→20:00)
[2023-03-22] MEDS: fluconazole-Diflucan 200mg/NS 100 ML IV SCH (08:07)
[2023-03-22] MEDS: methylPREDNISolone sod succ/PF 40mg inj. IV SCH (08:08)
[2023-03-22] MEDS: aspirin 81mg tab.chew OGT SCH (08:08)
[2023-03-22] MEDS: MANGANESE IV SCH (15:06)
[2023-03-22] MEDS: CHROMIC CHLORIDE IV SCH (15:06)
[2023-03-22] MEDS: [UNRECOGNIZED DRUG - OTHER] IV SCH (15:06)
[2023-03-22] MEDS: ZINC IV SCH (15:06)
[2023-03-22] MEDS: SELENIUM IV SCH (15:06)
[2023-03-22] MEDS: COPPER IV SCH (15:06)
[2023-03-22] MEDS: fat emulsion 20% IV 100 ML IV SCH (19:30)
[2023-03-22] MEDS: midazolam 100mg in NS 100ml 100 ML IV PRN (19:41)
[2023-03-22 21:10] LABS: ALANINE AMINOTRANSFERASE 99 U/L (12-78); ALBUMIN 2.6 G/DL (3.4-5.0); ALBUMIN/GLOBULIN RATIO 0.9 (1.1-1.5); ALKALINE PHOSPHATASE 82 IU/L (46-116); ANION GAP 8 (8-16); ASPARTATE AMINO TRANSFERASE 69 U/L (10-37); BILIRUBIN,TOTAL 1.5 MG/DL (0.1-1.0); BLOOD UREA NITROGEN 99 MG/DL (7-18); BUN/CREATININE RATIO 34.3 (10.0-20.0); CALCIUM 6.6 MG/DL (8.5-10.1); CHLORIDE 97 MMOL/L (99-107); CREATININE 2.89 MG/DL (0.60-1.10); POTASSIUM 5.4 MMOL/L (3.5-5.1); SODIUM 125 MMOL/L (135-145); TOTAL CARBON DIOXIDE 20.2 MMOL/L (24-32); TOTAL PROTEIN 5.6 G/DL (6.4-8.2); eCRCL 21 ML/MIN; eGFR 22 ML/MIN
[2023-03-22 21:17] LABS: GLUCOSE 663 MG/DL (70-104)
[2023-03-22] MEDS: atorvastatin 10mg tablet OGT SCH (21:34)
[2023-03-23] VITALS (23 sets, daily range): BP systolic 0–112; BP diastolic 0–69; PULSE 0–94; RESP 0–33; O2SAT 0–98
[2023-03-23] MEDS: Insulin Reg/NS 100units/100mL 100 ML IV SCH ×3 (01:24→11:24)
[2023-03-23] MEDS: sulfamethoxazole/trimethoprim 800/160mg per 20ml oral susp OGT SCH ×2 (01:43→06:43)
[2023-03-23] MEDS: pantoprazole 40MG/NS 100ML BAG 100 ML IV SCH ×3 (01:44→07:38)
[2023-03-23] MEDS: mineral oil/petrolatum ophthal oint EACHEYE SCH ×2 (02:00→07:39)
[2023-03-23 03:15] LABS: APTT 33 SECONDS (22-32); INR 1.3 INR
[2023-03-23 03:17] LABS: BASOPHILS % (AUTO) 0.3 % (0-1); EOSINOPHILS % (AUTO) 0.1 % (0-6); HEMATOCRIT 27.8 % (42.0-52.0); HEMOGLOBIN 8.5 g/dl (14.0-17.9); LYMPHOCYTES # (AUTO) 0.1 X10'3 (1.1-4.8); LYMPHOCYTES % (AUTO) 1.2 % (21-51); MEAN CORPUSCULAR HEMOGLOBIN 31.1 PG (27.0-31.0); MEAN CORPUSCULAR HGB CONC 30.7 g/dL (33.0-36.5); MEAN CORPUSCULAR VOLUME 101.4 FL (78-98); MEAN PLATELET VOLUME 9.3 FL (7.4-10.4); MONOCYTES # (AUTO) 0.9 X10'3 (0-0.9); MONOCYTES % (AUTO) 10.5 % (2-12); NEUTROPHILS # (AUTO) 7.4 X10'3 (1.8-7.7); NEUTROPHILS % (AUTO) 87.9 % (42-75); PLATELET COUNT 88 X10'3 (140-440); RED BLOOD COUNT 2.74 X10'6 (4.70-6.10); RED CELL DISTRIBUTION WIDTH 28.1 % (11.5-14.5); WHITE BLOOD COUNT 8.4 X10'3 (4.5-11.0)
[2023-03-23] MEDS: ipratropium/albuterol 3ml nebule NEB SCH ×3 (03:27→10:18)
[2023-03-23 04:15] LABS: NUCLEATED RED BLOOD CELLS 3 /100WBC (0-0); TOTAL CELLS COUNTED 100
[2023-03-23 04:16] LABS: ANISOCYTOSIS 3+; BURR CELLS 1+; ELLIPTOCYTES FEW; PLATELET ESTIMATE DECREASED; POLYCHROMASIA FEW; SCHISTOCYTES FEW; SMUDGE CELLS FEW; TEAR DROP CELLS FEW; TOXIC VACUOLATION 1+
[2023-03-23] MEDS: methylPREDNISolone sod succ/PF 40mg inj. IV SCH (07:38)
[2023-03-23] MEDS: fluconazole-Diflucan 200mg/NS 100 ML IV SCH (07:38)
[2023-03-23] MEDS: heparin, porcine 5000 units/ml vial SQ SCH (07:39)
[2023-03-23] MEDS: sennosides/docusate sodium tablet OGT SCH (07:39)
[2023-03-23] MEDS: aspirin 81mg tab.chew OGT SCH (07:39)
[2023-03-23] MEDS: FENTANYL-0.9 % NACL/PF 100 ML IV PRN (09:04)
[2023-03-23] MEDS: ZINC IV SCH (10:06)
[2023-03-23] MEDS: CHROMIC CHLORIDE IV SCH (10:06)
[2023-03-23] MEDS: SELENIUM IV SCH (10:06)
[2023-03-23] MEDS: [UNRECOGNIZED DRUG - OTHER] IV SCH (10:06)
[2023-03-23] MEDS: COPPER IV SCH (10:06)
[2023-03-23] MEDS: MANGANESE IV SCH (10:06)
[2023-03-23] MEDS ORDERED: LORazepam 2 mg/ml vial IV PRN (13:00)
[2023-03-23] MEDS ORDERED: morphine 10mg/ml inj. IV PRN (13:00)
[2023-03-24 18:21] LABS: HBSAG SCREEN Negative (Negative)
== END 2023-03-23 16:28 | DRG 233 ==
LOC: ER 07:20 → ED HOLD 13:16 → CICU 2S 19:55
PROVIDERS: ADMIT Internal Medicine Critical Care Medicine; ATTEND Internal Medicine Critical Care Medicine
PROC: 02UW0JZ Supplement Thoracic Aorta, Descending with Synthetic Substitute, Open Approach (ICD-10-PCS; 2023-03-01)
PROC: 4A023N7 Measurement of Cardiac Sampling and Pressure, Left Heart, Percutaneous Approach (ICD-10-PCS; 2023-03-01)
PROC: 06BQ4ZZ Excision of Left Saphenous Vein, Percutaneous Endoscopic Approach (ICD-10-PCS; 2023-03-01)
PROC: 02100Z9 Bypass Coronary Artery, One Artery from Left Internal Mammary, Open Approach (ICD-10-PCS; 2023-03-01)
PROC: 5A02210 Assistance with Cardiac Output using Balloon Pump, Continuous (ICD-10-PCS; 2023-03-01)
PROC: 5A1221Z Performance of Cardiac Output, Continuous (ICD-10-PCS; 2023-03-01)
PROC: B2111ZZ Fluoroscopy of Multiple Coronary Arteries using Low Osmolar Contrast (ICD-10-PCS; 2023-03-01)
PROC: B2151ZZ Fluoroscopy of Left Heart using Low Osmolar Contrast (ICD-10-PCS; 2023-03-01)
PROC: 02HV33Z Insertion of Infusion Device into Superior Vena Cava, Percutaneous Approach (ICD-10-PCS; 2023-03-01)
PROC: 5A09357 Assistance with Respiratory Ventilation, Less than 24 Consecutive Hours, Continuous Positive Airway Pressure (ICD-10-PCS; 2023-03-01)
PROC: 0BH17EZ Insertion of Endotracheal Airway into Trachea, Via Natural or Artificial Opening (ICD-10-PCS; 2023-03-01)
PROC: 5A1955Z Respiratory Ventilation, Greater than 96 Consecutive Hours (ICD-10-PCS; 2023-03-01)
PROC: 021309W Bypass Coronary Artery, Four or More Arteries from Aorta with Autologous Venous Tissue, Open Approach (ICD-10-PCS; principal; 2023-03-01 18:08)
PROC: 03HY32Z Insertion of Monitoring Device into Upper Artery, Percutaneous Approach (ICD-10-PCS; 2023-03-03)
PROC: 30233N1 Transfusion of Nonautologous Red Blood Cells into Peripheral Vein, Percutaneous Approach (ICD-10-PCS; 2023-03-08)
PROC: 0B978ZZ Drainage of Left Main Bronchus, Via Natural or Artificial Opening Endoscopic (ICD-10-PCS; 2023-03-09)
PROC: 0B938ZZ Drainage of Right Main Bronchus, Via Natural or Artificial Opening Endoscopic (ICD-10-PCS; 2023-03-09)
PROC: 5A1D70Z Performance of Urinary Filtration, Intermittent, Less than 6 Hours Per Day (ICD-10-PCS; 2023-03-14)
PROC: 5A1D70Z Performance of Urinary Filtration, Intermittent, Less than 6 Hours Per Day (ICD-10-PCS; 2023-03-15)
PROC: 02HV33Z Insertion of Infusion Device into Superior Vena Cava, Percutaneous Approach (ICD-10-PCS; 2023-03-16)
PROC: 5A1D70Z Performance of Urinary Filtration, Intermittent, Less than 6 Hours Per Day (ICD-10-PCS; 2023-03-16)
PROC: 5A1D70Z Performance of Urinary Filtration, Intermittent, Less than 6 Hours Per Day (ICD-10-PCS; 2023-03-17)
PROC: 30233R1 Transfusion of Nonautologous Platelets into Peripheral Vein, Percutaneous Approach (ICD-10-PCS; 2023-03-18)
PROC: 5A1D70Z Performance of Urinary Filtration, Intermittent, Less than 6 Hours Per Day (ICD-10-PCS; 2023-03-18)
PROC: 02L70CK Occlusion of Left Atrial Appendage with Extraluminal Device, Open Approach (ICD-10-PCS; 2023-03-20)
PROC: B24BZZ4 Ultrasonography of Heart with Aorta, Transesophageal (ICD-10-PCS; 2023-03-20)
PROC: 5A1D70Z Performance of Urinary Filtration, Intermittent, Less than 6 Hours Per Day (ICD-10-PCS; 2023-03-20)
DX: I21.4 Non-ST elevation (NSTEMI) myocardial infarction (principal); A41.02 Sepsis due to Methicillin resistant Staphylococcus aureus; I50.23 Acute on chronic systolic (congestive) heart failure; J80 Acute respiratory distress syndrome; J18.9 Pneumonia, unspecified organism; J15.212 Pneumonia due to Methicillin resistant Staphylococcus aureus; N17.0 Acute kidney failure with tubular necrosis; R65.21 Severe sepsis with septic shock; B20 Human immunodeficiency virus [HIV] disease; E87.20 Acidosis, unspecified; J44.0 Chronic obstructive pulmonary disease with (acute) lower respiratory infection; Z88.0 Allergy status to penicillin; E86.0 Dehydration; Z20.822 Contact with and (suspected) exposure to COVID-19; R57.0 Cardiogenic shock; I08.0 Rheumatic disorders of both mitral and aortic valves; I71.21 Aneurysm of the ascending aorta, without rupture; I48.0 Paroxysmal atrial fibrillation; D64.9 Anemia, unspecified; D69.6 Thrombocytopenia, unspecified; E78.5 Hyperlipidemia, unspecified; K75.9 Inflammatory liver disease, unspecified; G83.9 Paralytic syndrome, unspecified; E87.5 Hyperkalemia; R59.1 Generalized enlarged lymph nodes; E83.51 Hypocalcemia; I25.10 Atherosclerotic heart disease of native coronary artery without angina pectoris; E83.39 Other disorders of phosphorus metabolism; R73.9 Hyperglycemia, unspecified; I25.2 Old myocardial infarction; Z95.5 Presence of coronary angioplasty implant and graft; Z51.5 Encounter for palliative care
CPT/HCPCS: 0232T; 31645; 33967; 36569; 93306; 93308; 93312; 93325; 93460; 96361; 96375; 99291; 99292; Z7506; Z7508; 36415; 36430; 36600; 71045; 76770; 76937; 76942; 80048; 80053; 80061; 80069; 80202; 81001; 82330; 82435; 82570; 82728; 82803; 82947; 82948; 83036; 83540; 83550; 83605; 83615; 83690; 83735; 83880; 84100; 84132; 84134; 84145; 84156; 84295; 84300; 84478; 84484; 85007; 85014; 85018; 85025; 85347; 85379; 85384; 85610; 85730; 86361; 86480; 86703; 86705; 86706; 86885; 86900; 86901; 86920; 87040; 87070; 87075; 87077; 87081; 87102; 87186; 87207; 87340; 87449; 87502; 87503; 87517; 87535; 87811; 87899; 93005; 93970; 94002; 94003; 94640; 94660; 94760; 94799; 99152; 99153; A4333; A4615; A4618; A4628; A5200; A6213; A6253; A6258; A6402; A6446; A6449; A7000; A7015; A9900; C1725; C1729; C1751; C1752; C1758; C1768; C1894; C9113; C9290; E1594; G0257; G0378; J0131; J0171; J0282; J0330; J0456; J0610; J0690; J0696; J1250; J1265; J1450; J1644; J1650; J1815; J1940; J2060; J2150; J2250; J2270; J2274; J2370; J2440; J2704; J2720; J2765; J2920; J2930; J3010; J3370; J3430; J3475; J3480; J3490; J7030; J7040; J7050; J7060; J7070; J7120; P9016; P9035; P9045; P9047; Q4081; Q9967; S0020